=== PATIENT | male | born 1945 | race Caucasian/White ===

== ENCOUNTER 2017-08-29 14:04 | Emergency (ER) | payer MEDICARE, SELFPAY | END 2017-08-29 17:02 | disposition home or self-care (01) | PROVIDERS: Emergency Provider Internal Medicine; Visit Provider Internal Medicine | DX: I48.91 Unspecified atrial fibrillation (principal) | CPT/HCPCS: 71010; 71045; 80053; 83880; 84484; 85025; 85379; 93005; 93010; 99058; 99285 ==

== ENCOUNTER 2018-06-22 05:53 | Emergency (ER) | payer MEDICARE, SELFPAY ==
[2018-06-22 06:03] VITALS: BP 137/81; PULSE 101; RESP 16; TEMP 36.2; O2SAT 92; BMI 25.7
--- NOTE | 2018-06-22 06:22 | ED.MALEGU ---
HPI - Male Genitourinary <Lisa Jones DO - Last Filed: 06/22/18 21:24> General Chief complaint: Urogenital-Male Stated complaint: thinks uti, hurts to pee, chills Time Seen by Provider: 06/22/18 06:03 Source: patient, family and RN notes reviewed Mode of arrival: ambulatory Limitations: no limitations History of Present Illness HPI Narrative: patient is a 72-year-old male who presents with painful frequent urination. He says been off and on for about the last 1 month. However yesterday he started getting shakes and chills and having urinary urgency. He denies any blood in his urine. last evening he had severe pain in his left lower quadrant. It subsided in went away however this morning it came back and is more constant. He denies any flank pain no history kidney stones. He is on Eliquis for AFib. MD Complaint: dysuria Onset (ago): month(s) Duration: intermittent and progressively worsening Related Data Home Medications Medication Instructions Recorded Confirmed finasteride 5 mg PO QDAY #0 03/22/17 ranitidine HCl 150 mg PO BID #0 03/22/17 tamsulosin [Flomax] 0.4 mg PO QDAY #0 03/22/17 tiotropium bromide [Spiriva 2.5 mcg IH BID #0 03/22/17 Respimat] diltiazem HCl 180 mg PO QDAY #0 08/29/17 Previous Rx's Medication Instructions Recorded apixaban [Eliquis] 5 mg PO BID #60 tab 03/23/17 levalbuterol tartrate [Xopenex HFA] 2 puff INH Q4HP PRN #1 inh 03/23/17 diltiazem HCl 60 mg PO DAILY #20 cap 09/11/17 cephalexin [Keflex] 500 mg PO QID 10 Days #40 cap 06/22/18 Allergies Allergy/AdvReac Type Severity Reaction Status Date / Time No Known Allergies Allergy Verified 09/11/17 16:17 Review of Systems <Lisa Jones DO - Last Filed: 06/22/18 21:24> Review of Systems GENERAL: Denies chills, fatigue, malaise, fever, sweats, travel HEENT: Denies sinus pain, ear pain, sore throat, difficulty swallowing, neck pain RESPIRATORY: Denies dyspnea, cough, wheezing, hemoptysis, sputum. CARDIOVASCULAR: Denies chest pain, palpitations, orthopnea, edema GASTROINTESTINAL: Denies nausea, vomiting, abdominal pain, diarrhea, constipation, melena. : The HPI MUSCULOSKELETAL: Denies weakness, joint pain, or bony pain SKIN: No rash, no erythema, no pruritus NEUROLOGIC: Denies weakness, dizziness, headache, numbness, change in speech, confusion PSYCHIATRIC: No concerning psychosocial issues. 12 point review of systems is negative except for those stated above and HPI PFSH <Lisa Jones DO - Last Filed: 06/22/18 21:24> Medical History Atrial fibrillation (Acute) COPD (chronic obstructive pulmonary disease) (Acute) Social History Smoking Status: Never smoker Social History Smoking Status: Never smoker Exam <Lisa Jones DO - Last Filed: 06/22/18 21:24> Initial Vital Signs Initial Vital Signs: Vital Signs Temperature 97.1 F L 06/22/18 06:03 Pulse Rate 101 H 06/22/18 06:03 Respiratory Rate 16 06/22/18 06:03 Blood Pressure 137/81 06/22/18 06:03 Pulse Oximetry 92 06/22/18 06:03 GENERAL: alert male no acute distress HEENT: Head atraumatic,EOMI, pupils reactive, neck is supple CARDIOVASCULAR: Regular rate and rhythm without murmurs, rubs or gallops. RESPIRATORY: Breath sounds equal bilaterally, no wheezes rales or rhonchi. ABDOMEN: Soft, mild left lower quadrant pain no guarding no rebound : No CVA tenderness EXTREMITIES: Normal range of motion, no clubbing or edema. Neurovascularly intact NEUROLOGICAL: Alert and oriented x4. SKIN: Warm, dry, no laceration, no petechiae, no rashes or lesions. <Bert Willingham DO - Last Filed: 06/22/18 20:47> Initial Vital Signs Initial Vital Signs: Vital Signs Temperature 97.1 F L 06/22/18 06:03 Pulse Rate 101 H 06/22/18 06:03 Respiratory Rate 16 06/22/18 06:03 Blood Pressure 137/81 06/22/18 06:03 Pulse Oximetry 92 06/22/18 06:03 Course <Lisa Jones DO - Last Filed: 06/22/18 21:24> Orders Ordered: Discontinued Medications Acetaminophen (Tylenol) 975 mg PO NOW ONE Stop: 06/22/18 07:32 Last Admin: 06/22/18 07:31 Dose: 975 mg Sodium Chloride (Normal Saline 0.9%) 1,000 mls @ 1,000 mls/hr IV BOLUS ONE Stop: 06/22/18 07:19 Last Infusion: 06/22/18 07:32 Dose: 0 mls/hr Admin: 06/22/18 06:45 Dose: 1,000 mls/hr Vital Signs - 8 hr 06/22/18 06:03 Temperature 97.1 F L Pulse Rate 101 H Respiratory Rate 16 Blood Pressure 137/81 Pulse Oximetry 92 <Bert Willingham DO - Last Filed: 06/22/18 20:47> Orders Ordered: Discontinued Medications Acetaminophen (Tylenol) 975 mg PO NOW ONE Stop: 06/22/18 07:32 Last Admin: 06/22/18 07:31 Dose: 975 mg Sodium Chloride (Normal Saline 0.9%) 1,000 mls @ 1,000 mls/hr IV BOLUS ONE Stop: 06/22/18 07:19 Last Infusion: 06/22/18 07:32 Dose: 0 mls/hr Admin: 06/22/18 06:45 Dose: 1,000 mls/hr Reevaluation(s) Reevaluation #1: patient received in sign-out from Dr. Jones. I have independently examined and reviewed this patient. Urine is very convincing for infection, postvoid residual bladder scan notes 150 mL. Extensive discussion with the patient and family regarding need for treatment with antibiotics and close follow-up with primary care provider which will likely lead to urologic consult in the near future Vital Signs - 8 hr 06/22/18 06:03 Temperature 97.1 F L Pulse Rate 101 H Respiratory Rate 16 Blood Pressure 137/81 Pulse Oximetry 92 MDM - Male Genitourinary <Lisa Jones DO - Last Filed: 06/22/18 21:24> Lab Data Attestation: I reviewed the patient's lab results. Result diagrams: 06/22/18 06:28 06/22/18 06:28 Lab Results 06/22/18 06/22/18 06/22/18 Range/Units 06:28 06:28 07:25 WBC 10.1 (4.5-11.0) X10^3/uL RBC 4.65 (4.5-5.9) X10^6/uL Hgb 14.5 (13.5-17.5) g/dL Hct 43.1 (41-53) % MCV 92.8 (80-100) fL MCH 31.1 (26-34) PG MCHC 33.6 (30-36) % RDW 14.1 (11.6-14.8) % Plt Count 250 (150-400) X10^3/uL Neut % (Auto) 86.5 H (50-75) % Lymph % (Auto) 4.3 L (25-40) % [place] % (Auto) 6.3 (3-14) % Eos % (Auto) 2.4 (2-4) % Baso % (Auto) 0.5 (0-2) % Neut # (Auto) 8800 H (8161-3359) /uL Lymph # (Auto) 400 L (5245-6283) /uL [place] # (Auto) 600 (0-900) /uL Eos # (Auto) 200 (0-450) /uL Baso # (Auto) 100 (0-100) /uL Sodium 137 (137-145) mmol/L Potassium 4.3 (3.4-5.1) mmol/L Chloride 105 (98-107) mmol/L Carbon Dioxide 23 (22-32) mmol/L BUN 15 (9-20) mg/dL Creatinine 0.80 (0.66-1.25) mg/dL Estimated GFR > 60.0 (>60) mL/min BUN/Creatinine Ratio 18.8 (6-22) Glucose 100 (80-110) mg/dL Calcium 9.1 (8.4-10.2) mg/dL Urine RBC >100/hpf (0-5/HPF) Urine WBC >100/hpf H (0-5/HPF) Urine Bacteria Many (>30) H (None) Ur Culture Indicated? 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 Is no nephrolithiasis or hydronephrosis. Mild rufina vesicular inflammation. Recommend correlation with his urinalysis for cystitis. Moderate stool in colon with left-sided diverticulosis. MDM Narrative Medical decision making narrative: Patient signed out to Dr. Willingham. Awaiting urinalysis anticipate UTI. His does not appear septic anticipate discharge <Bert Willingham DO - Last Filed: 06/22/18 20:47> Lab Data Lab Results 06/22/18 06/22/18 06/22/18 Range/Units 06:28 06:28 07:25 WBC 10.1 (4.5-11.0) X10^3/uL RBC 4.65 (4.5-5.9) X10^6/uL Hgb 14.5 (13.5-17.5) g/dL Hct 43.1 (41-53) % MCV 92.8 (80-100) fL MCH 31.1 (26-34) PG MCHC 33.6 (30-36) % RDW 14.1 (11.6-14.8) % Plt Count 250 (150-400) X10^3/uL Neut % (Auto) 86.5 H (50-75) % Lymph % (Auto) 4.3 L (25-40) % [place] % (Auto) 6.3 (3-14) % Eos % (Auto) 2.4 (2-4) % Baso % (Auto) 0.5 (0-2) % Neut # (Auto) 8800 H (7408-8826) /uL Lymph # (Auto) 400 L (9330-0351) /uL [place] # (Auto) 600 (0-900) /uL Eos # (Auto) 200 (0-450) /uL Baso # (Auto) 100 (0-100) /uL Sodium 137 (137-145) mmol/L Potassium 4.3 (3.4-5.1) mmol/L Chloride 105 (98-107) mmol/L Carbon Dioxide 23 (22-32) mmol/L BUN 15 (9-20) mg/dL Creatinine 0.80 (0.66-1.25) mg/dL Estimated GFR > 60.0 (>60) mL/min BUN/Creatinine Ratio 18.8 (6-22) Glucose 100 (80-110) mg/dL Calcium 9.1 (8.4-10.2) mg/dL Urine RBC >100/hpf (0-5/HPF) Urine WBC >100/hpf H (0-5/HPF) Urine Bacteria Many (>30) H (None) Ur Culture Indicated? Specimen cultured Urine Dip Bedside Urine Glucose Negative Bedside Urine Bilirubin - Negative Bedside Urine Ketone - Negative Urine Specific [place] 1.020 Bedside Urine Occult Blood +++ Bedside Urine pH 6.0 Bedside Urine Protein + 30 Bedside Urine Urobilinogen - Negative Bedside Urine Nitrite - Negative Bedside Urine Leukocytes +++ 500 Esterase Discharge Plan Departure Patient Disposition: Home Clinical Impression: Acute UTI Discharge Date/Time: 06/22/18 08:45 Interventions: ED Discharge Assessment Last Done: 06/22/18 08:44 Instructions: DI for Kidney Infection Activity Restrictions/Additional Instructions: *You have been diagnosed with [ acute urinary tract infection with possible early pyelonephritis ] *What to do: *Take medications as directed: Your prescription has been electronically transmitted to the [facility] at your request *Follow up with your primary care provider in 2-3 days, call for an appointment. Let them know you were seen in the Emergency Department and that we ask that you be seen in follow up *Return to ER if you should have any new, worsening or concerning symptoms, such as [fever over 101 F, worsening pain, inability to tolerate eating or drinking, other bothersome symptoms ] Prescriptions: New cephalexin [Keflex] 500 mg capsule 500 mg PO QID 10 Days Qty: 40 RF: 0 No Action finasteride 5 MG tablet 5 mg PO QDAY Qty: 0 RF: 0 tamsulosin [Flomax] 0.4 MG capsule,extended release 24hr 0.4 mg PO QDAY Qty: 0 RF: 0 ranitidine HCl 150 MG tablet 150 mg PO BID Qty: 0 RF: 0 tiotropium bromide [Spiriva Respimat] 2.5 MCG/ACTUATION mist 2.5 mcg IH BID Qty: 0 RF: 0 levalbuterol tartrate [Xopenex HFA] 45 MCG/INH HFA aerosol inhaler 2 puff INH Q4HP PRNQty: 1 RF: 0 apixaban [Eliquis] 5 MG tablet 5 mg PO BID Qty: 60 RF: 3 diltiazem HCl 180 MG capsule,extended release 24hr 180 mg PO QDAY Qty: 0 RF: 0 diltiazem HCl 120 mg capsule,extended release 24hr 60 mg PO DAILY Qty: 20 RF: 0 Referrals: Mike Child MD [Non-Staff] - Sade Blanc MD [Physician] -
--- NOTE | 2018-06-22 06:25 | ED_ITS ---
HPI - Male Genitourinary <Lisa Jones DO - Last Filed: 06/22/18 21:24> General Chief complaint: Urogenital-Male Stated complaint: thinks uti, hurts to pee, chills Time Seen by Provider: 06/22/18 06:03 Source: patient, family and RN notes reviewed Mode of arrival: ambulatory Limitations: no limitations History of Present Illness HPI Narrative: patient is a 72-year-old male who presents with painful frequent urination. He says been off and on for about the last 1 month. However yes terday he started getting shakes and chills and having urinary urgency. He denies any blood in his urine. last evening he had severe pain in his left lower quadrant. It subsided in went away however this morning it came back and is more constant. He denies any flank pain no history kidney stones. He is on Eliquis for AFib. MD Complaint: dysuria Onset (ago): month(s) Duration: intermittent and progressively worsening Related Data Home Medications Medication Instructions Recorded Confirmed finasteride 5 mg PO QDAY #0 03/22/17 ranitidine HCl 150 mg PO BID #0 03/22/17 tamsulosin [Flomax] 0.4 mg PO QDAY #0 03/22/17 tiotropium bromide [Spiriva 2.5 mcg IH BID #0 03/22/17 Respimat] diltiazem HCl 180 mg PO QDAY #0 08/29/17 Previous Rx's Medication Instructions Recorded apixaban [Eliquis] 5 mg PO BID #60 tab 03/23/17 levalbuterol tartrate [Xopenex HFA] 2 puff INH Q4HP PRN #1 inh 03/23/17 diltiazem HCl 60 mg PO DAILY #20 cap 09/11/17 cephalexin [Keflex] 500 mg PO QID 10 Days #40 cap 06/22/18 Allergies Allergy/AdvReac Type Severity Reaction Status Date / Time No Known Allergies Allergy Verified 09/11/17 16:17 Review of Systems <Lisa Jones DO - Last Filed: 06/22/18 21:24> Review of Systems GENERAL: Denies chills, fatigue, malaise, fever, sweats, travel HEENT: Denies sinus pain, ear pain, sore throat, difficulty swallowing, neck pain RESPIRATORY: Denies dyspnea, cough, wheezing, hemoptysis, sputum. CARDIOVASCULAR: Denies chest pain, palpitations, orthopnea, edema GASTROINTESTINAL: Denies nausea, vomiting, abdominal pain, diarrhea, constipation, melena. : The HPI MUSCULOSKELETAL: Denies weakness, joint pain, or bony pain SKIN: No rash, no erythema, no pruritus NEUROLOGIC: Denies weakness, dizziness, headache, numbness, change in speech, c onfusion PSYCHIATRIC: No concerning psychosocial issues. 12 point review of systems is negative except for those stated above and HPI PFSH <Lisa Jones DO - Last Filed: 06/22/18 21:24> Medical History Atrial fibrillation (Acute) COPD (chronic obstructive pulmonary disease) (Acute) Social History Smoking Status: Never smoker Social History Smoking Status: Never smoker Exam <Lisa Jones DO - Last Filed: 06/22/18 21:24> Initial Vital Signs Initial Vital Signs: Vital Signs Temperature 97.1 F L 06/22/18 06:03 Pulse Rate 101 H 06/22/18 06:03 Respiratory Rate 16 06/22/18 06:03 Blood Pressure 137/81 06/22/18 06:03 Pulse Oximetry 92 06/22/18 06:03 GENERAL: alert male no acute distress HEENT: Head atraumatic,EOMI, pupils reactive, neck is supple CARDIOVASCULAR: Regular rate and rhythm without murmurs, rubs or gallops. RESPIRATORY: Breath sounds equal bilaterally, no wheezes rales or rhonchi. ABDOMEN: Soft, mild left lower quadrant pain no guarding no rebound : No CVA tenderness EXTREMITIES: Normal range of motion, no clubbing or edema. Neurovascularly intact NEUROLOGICAL: Alert and oriented x4. SKIN: Warm, dry, no laceration, no petechiae, no rashes or lesions. <Bert Willingham DO - Last Filed: 06/22/18 20:47> Initial Vital Signs Initial Vital Signs: Vital Signs Temperature 97.1 F L 06/22/18 06:03 Pulse Rate 101 H 06/22/18 06:03 Respiratory Rate 16 06/22/18 06:03 Blood Pressure 137/81 06/22/18 06:03 Pulse Oximetry 92 06/22/18 06:03 Course <Lisa Jones DO - Last Filed: 06/22/18 21:24> Orders Ordered: Discontinued Medications Acetaminophen (Tylenol) 975 mg PO NOW ONE Stop: 06/22/18 07:32 Last Admin: 06/22/18 07:31 Dose: 975 mg Sodium Chloride (Normal Saline 0.9%) 1,000 mls @ 1,000 mls/hr IV BOLUS ONE Stop: 06/22/18 07:19 Last Infusion: 06/22/18 07:32 Dose: 0 mls/hr Admin: 06/22/18 06:45 Dose: 1,000 mls/hr Vital Signs - 8 hr 06/22/18 06:03 Temperature 97.1 F L Pulse Rate 101 H Respiratory Rate 16 Blood Pressure 137/81 Pulse Oximetry 92 <Bert Willingham, - Last Filed: 06/22/18 20:47> Orders Ordered: Discontinued Medications Acetaminophen (Tylenol) 975 mg PO NOW ONE Stop: 06/22/18 07:32 Last Admin: 06/22/18 07:31 Dose: 975 mg Sodium Chloride (Normal Saline 0.9%) 1,000 mls @ 1,000 mls/hr IV BOLUS ONE Stop: 06/22/18 07:19 Last Infusion: 06/22/18 07:32 Dose: 0 mls/hr Admin: 06/22/18 06:45 Dose: 1,000 mls/hr Reevaluation(s) Reevaluation #1: patient received in sign-out from Dr. Jones. I have independently examined and reviewed this patient. Urine is very convincing for infection, postvoid residual bladder scan notes 150 mL. Extensive discussion with the patient and family regarding need for treatment with antibiotics and close follow-up with primary care provider which will likely lead to urologic consult in the near future Vital Signs - 8 hr 06/22/18 06:03 Temperature 97.1 F L Pulse Rate 101 H Respiratory Rate 16 Blood Pressure 137/81 Pulse Oximetry 92 MDM - Male Genitourinary <Lisa Jones DO - Last Filed: 06/22/18 21:24> Lab Data Attestation: I reviewed the patient's lab results. Result diagrams: 06/22/18 06:28 06/22/18 06:28 Lab Results 06/22/18 06/22/18 06/22/18 Range/Units 06:28 06:28 07:25 WBC 10.1 (4.5-11.0) X10^3/uL RBC 4.65 (4.5-5.9) X10^6/uL Hgb 14.5 (13.5-17.5) g/dL Hct 43.1 (41-53) % MCV 92.8 (80-100) fL MCH 31.1 (26-34) PG MCHC 33.6 (30-36) % RDW 14.1 (11.6-14.8) % Plt Count 250 (150-400) X10^3/uL Neut % (Auto) 86.5 H (50-75) % Lymph % (Auto) 4.3 L (25-40) % [place] % (Auto) 6.3 (3-14) % Eos % (Auto) 2.4 (2-4) % Baso % (Auto) 0.5 (0-2) % Neut # (Auto) 8800 H (0810-7292) /uL Lymph # (Auto) 400 L (6291-9504) /uL [place] # (Auto) 600 (0-900) /uL Eos # (Auto) 200 (0-450) /uL Baso # (Auto) 100 (0-100) /uL Sodium 137 (137-145) mmol/L Potassium 4.3 (3.4-5.1) mmol/L Chloride 105 (98-107) mmol/L Carbon Dioxide 23 (22-32) mmol/L BUN 15 (9-20) mg/dL Creatinine 0.80 (0.66-1.25) mg/dL Estimated GFR > 60.0 (>60) mL/min BUN/Creatinine Ratio 18.8 (6-22) Glucose 100 (80-110) mg/dL Calcium 9.1 (8.4-10.2) mg/dL Urine RBC >100/hpf (0-5/HPF) Urine WBC >100/hpf H (0-5/HPF) Urine Bacteria Many (>30) H (None) Ur Culture Indicated? 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 Is no nephrolithiasis or hydronephrosis. Mild rufina vesicular inflammation. Recommend correlation with his urinalysis for cystitis. Moderate stool in colon with left-sided diverticulosis. MDM Narrative Medical decision making narrative: Patient signed out to Dr. Willingham. Awaiting urinalysis anticipate UTI. His does not appear septic anticipate discharge <Bert Willingham DO - Last Filed: 06/22/18 20:47> Lab Data Lab Results 06/22/18 06/22/18 06/22/18 Range/Units 06:28 06:28 07:25 WBC 10.1 (4.5-11.0) X10^3/uL RBC 4.65 (4.5-5.9) X10^6/uL Hgb 14.5 (13.5-17.5) g/dL Hct 43.1 (41-53) % MCV 92.8 (80-100) fL MCH 31.1 (26-34) PG MCHC 33.6 (30-36) % RDW 14.1 (11.6-14.8) % Plt Count 250 (150-400) X10^3/uL Neut % (Auto) 86.5 H (50-75) % Lymph % (Auto) 4.3 L (25-40) % [place] % (Auto) 6.3 (3-14) % Eos % (Auto) 2.4 (2-4) % Baso % (Auto) 0.5 (0-2) % Neut # (Auto) 8800 H (8511-0494) /uL Lymph # (Auto) 400 L (3751-7918) /uL [place] # (Auto) 600 (0-900) /uL Eos # (Auto) 200 (0-450) /uL Baso # (Auto) 100 (0-100) /uL Sodium 137 (137-145) mmol/L Potassium 4.3 (3.4-5.1) mmol/L Chloride 105 (98-107) mmol/L Carbon Dioxide 23 (22-32) mmol/L BUN 15 (9-20) mg/dL Creatinine 0.80 (0.66-1.25) mg/dL Estimated GFR > 60.0 (>60) mL/min BUN/Creatinine Ratio 18.8 (6-22) Glucose 100 (80-110) mg/dL Calcium 9.1 (8.4-10.2) mg/dL Urine RBC >100/hpf (0-5/HPF) Urine WBC >100/hpf H (0-5/HPF) Urine Bacteria Many (>30) H (None) Ur Culture Indicated? Specimen cultured Urine Dip Bedside Urine Glucose Negative Bedside Urine Bilirubin - Negative Bedside Urine Ketone - Negative Urine Specific [place] 1.020 Bedside Urine Occult Blood +++ Bedside Urine pH 6.0 Bedside Urine Protein + 30 Bedside Urine Urobilinogen - Negative Bedside Urine Nitrite - Negative Bedside Urine Leukocytes +++ 500 Esterase Discharge Plan Departure Patient Disposition: Home Clinical Impression: Acute UTI Discharge Date/Time: 06/22/18 08:45 Interventions: ED Discharge Assessment Last Done: 06/22/18 08:44 Instructions: DI for Kidney Infection Activity Restrictions/Additional Instructions: *You have been diagnosed with [ acute urinary tract infection with possible early pyelonephritis ] *What to do: *Take medications as directed: Your prescription has been electronically transmitted to the [facility] at your request *Follow up with your primary care provider in 2-3 days, call for an appointment. Let them know you were seen in the Emergency Department and that we ask that you be seen in follow up *Return to ER if you should have any new, worsening or concerning symptoms, such as [fever over 101 F, worsening pain, inability to tolerate eating or drinking, other bothersome symptoms ] Prescriptions: New cephalexin [Keflex] 500 mg capsule 500 mg PO QID 10 Days Qty: 40 RF: 0 No Action finasteride 5 MG tablet 5 mg PO QDAY Qty: 0 RF: 0 tamsulosin [Flomax] 0.4 MG capsule,extended release 24hr 0.4 mg PO QDAY Qty: 0 RF: 0 ranitidine HCl 150 MG tablet 150 mg PO BID Qty: 0 RF: 0 tiotropium bromide [Spiriva Respimat] 2.5 MCG/ACTUATION mist 2.5 mcg IH BID Qty: 0 RF: 0 levalbuterol tartrate [Xopenex HFA] 45 MCG/INH HFA aerosol inhaler 2 puff INH Q4HP PRNQty: 1 RF: 0 apixaban [Eliquis] 5 MG tablet 5 mg PO BID Qty: 60 RF: 3 diltiazem HCl 180 MG capsule,extended release 24hr 180 mg PO QDAY Qty: 0 RF: 0 diltiazem HCl 120 mg capsule,extended release 24hr 60 mg PO DAILY Qty: 20 RF: 0 Referrals: Mike Child MD [Non-Staff] - Sade Blanc MD [Physician] -
[2018-06-22 06:38] LABS: Add Manual Diff / Slide Review NO; Basophils Absolute Auto 100 /uL (0-100); Basophils Percent Auto 0.5 % (0-2); Eosinophils Absolute Auto 200 /uL (0-450); Eosinophils Percent Auto 2.4 % (2-4); Hematocrit 43.1 % (41-53); Hemoglobin 14.5 g/dL (13.5-17.5); Lymphocytes Absolute Auto 400 /uL (1100-4500); Lymphocytes Percent Auto 4.3 % (25-40); Mean Corpuscular HGB Conc 33.6 % (30-36); Mean Corpuscular Hemoglobin 31.1 PG (26-34); Mean Corpuscular Volume 92.8 fL (80-100); Monocytes Absolute Auto 600 /uL (0-900); Monocytes Percent Auto 6.3 % (3-14); Neutrophils Absolute Auto 8800 /uL (1500-7000); Neutrophils Percent Auto 86.5 % (50-75); Platelet Count 250 X10^3/uL (150-400); Red Blood Cell Count 4.65 X10^6/uL (4.5-5.9); Red Cell Distribution Width 14.1 % (11.6-14.8); White Blood Cell Count 10.1 X10^3/uL (4.5-11.0)
[2018-06-22] MEDS: SODIUM CHLORIDE 0.9% 1,000 ML 1000 ML IV (06:45)
[2018-06-22 06:47] LABS: BUN Creatinine Ratio 18.8 (6-22); Blood Urea Nitrogen 15 mg/dL (9-20); Calcium 9.1 mg/dL (8.4-10.2); Carbon Dioxide 23 mmol/L (22-32); Chloride 105 mmol/L (98-107); Estimated Glomerular Filt Rate > 60.0 mL/min (>60); Glucose 100 mg/dL (80-110); HEMOLYSIS < 15 (0-50); Potassium 4.3 mmol/L (3.4-5.1); Sodium 137 mmol/L (137-145)
--- NOTE | 2018-06-22 06:47 | DI.CT.S_ITS ---
PROCEDURE: CT KIDNEY URETER BLADDER (KUB) INDICATIONS: left flank pain TECHNIQUE: Noncontrast 5 mm thick sections acquired from the diaphragms to the symphysis. 5 mm thick coronal and sagittal reformats were then performed. For radiation dose reduction, the following was used: automated exposure control, adjustment of mA and/or kV according to patient size. COMPARISON: None. FINDINGS: Image quality: Excellent. Lung bases: Lung bases are clear. Heart size is normal. Urinary system: Both kidneys are normal in size. No kidney stones. No hydronephrosis or perinephric fat stranding. Both ureters appear non-dilated throughout their expected courses. There is mild diffuse urinary bladder wall thickening and mild pericystic fat stranding. No calcified bladder stones. Mildly enlarged prostate gland is seen with mass effect of floor of urinary bladder. Other solid organs: Liver is normal in size. Gallbladder is within normal limits. Pancreas is normal in contours. Spleen is normal in size. No adrenal nodules. Peritoneum and bowel: Unenhanced bowel loops demonstrate normal wall thickness and caliber. No free fluid or air. Sigmoid diverticulosis is seen, and no CT evidence of acute diverticulitis. There is a small hiatal hernia. Nodes and vessels: No retroperitoneal or mesenteric adenopathy by size criteria. Aorta and inferior vena cava are normal in caliber. Abdominal wall: No ventral hernias. Pelvis: No free pelvic fluid. No inguinal hernias or adenopathy. Bones: No suspicious bony lesions. No vertebral body compression fractures. Bilateral pars defects at L5 level is helically one anterolisthesis of L5 on S1. Degenerative disc disease in lower lumbar spine is seen. IMPRESSION: 1. Finding may represent cystitis. No definite discrete bladder wall mass is seen. 2. No nephrolithiasis or hydronephrosis. 3. Left colon diverticulosis with no CT evidence of acute diverticulitis. No bowel structure. No free fluid or free air. No significant discrepancies. Dictated by: Amanuel Ferreira M.D. on 06/22/2018 at 8:49 Approved by: Amanuel Ferreira M.D. on 06/22/2018 at 9:05
[2018-06-22] MEDS: ACETAMINOPHEN 325 MG TABLET 975 MG PO (07:31)
[2018-06-22 07:36] LABS: Bacteria Urine Many (>30); Culture Indicated Urine Specimen Cultured; RBC Urine >100/HPF (0-5/HPF); WBC Urine >100/HPF (0-5/HPF)
[2018-06-22 08:44] VITALS: BP 114/67; PULSE 80; RESP 16; O2SAT 94
== END 2018-06-22 08:45 | disposition home or self-care (01) ==
PROVIDERS: Emergency Medicine; Emergency Provider Emergency Medicine
DX: N39.0 Urinary tract infection, site not specified (principal)
CPT/HCPCS: 36591; 74176; 80048; 81003; 81015; 85025; 87086; 96360; 99283; 99284

== ENCOUNTER → 2018-09-20 07:47 | Outpatient (CLI) | payer OTHER, MEDICARE, SELFPAY ==
[2018-09-20 08:35] LABS: BUN Creatinine Ratio 15.6 (6-22); Blood Urea Nitrogen 14 mg/dL (9-20); Calcium 9.1 mg/dL (8.4-10.2); Carbon Dioxide 30 mmol/L (22-32); Chloride 104 mmol/L (98-107); Estimated Glomerular Filt Rate > 60.0 mL/min (>60); Glucose 96 mg/dL (80-110); HEMOLYSIS < 15 (0-50); Potassium 4.4 mmol/L (3.4-5.1); Sodium 139 mmol/L (137-145)
== END ==
PROVIDERS: Visit Provider Internal Medicine Cardiovascular Disease
DX: I48.0 Paroxysmal atrial fibrillation (principal); E78.5 Hyperlipidemia, unspecified
CPT/HCPCS: 36415; 80048

== ENCOUNTER → 2018-09-25 06:55 | Outpatient (CLI) | payer OTHER, MEDICARE, SELFPAY ==
[2018-09-25 09:20] LABS: Add Manual Diff / Slide Review NO; Basophils Absolute Auto 100 /uL (0-100); Basophils Percent Auto 0.8 % (0-2); Eosinophils Absolute Auto 300 /uL (0-450); Eosinophils Percent Auto 4.5 % (2-4); Hematocrit 42.1 % (41-53); Hemoglobin 14.3 g/dL (13.5-17.5); Lymphocytes Absolute Auto 900 /uL (1100-4500); Lymphocytes Percent Auto 14.5 % (25-40); Mean Corpuscular HGB Conc 33.9 % (30-36); Mean Corpuscular Hemoglobin 31.5 PG (26-34); Mean Corpuscular Volume 92.9 fL (80-100); Monocytes Absolute Auto 500 /uL (0-900); Monocytes Percent Auto 8.3 % (3-14); Neutrophils Absolute Auto 4700 /uL (1500-7000); Neutrophils Percent Auto 71.9 % (50-75); Platelet Count 247 X10^3/uL (150-400); Red Blood Cell Count 4.53 X10^6/uL (4.5-5.9); Red Cell Distribution Width 14.4 % (11.6-14.8); White Blood Cell Count 6.5 X10^3/uL (4.5-11.0)
[2018-09-25 09:28] LABS: Cholesterol 141 mg/dL (140-199); HDL Cholesterol 56 mg/dL (40-60); LDL Cholesterol Calculated 71 mg/dL (<100); Triglycerides 68 mg/dL (35-150)
== END ==
PROVIDERS: Visit Provider Internal Medicine Cardiovascular Disease
DX: I48.0 Paroxysmal atrial fibrillation (principal); E78.5 Hyperlipidemia, unspecified
CPT/HCPCS: 36415; 80061; 85025

== ENCOUNTER → 2020-05-30 12:03 | Outpatient (CLI) | payer MEDICARE, SELFPAY ==
[2020-05-30] MEDS: COVID-19 VACC #1, MRNA(MOD) 100 MCG/0.5 ML VIAL IM (12:10)
== END ==
PROVIDERS: Visit Provider Internal Medicine
DX: Z23 Encounter for immunization (principal)
CPT/HCPCS: 0011A; 91301

== ENCOUNTER → 2020-06-25 10:33 | Outpatient (CLI) | payer OTHER, SELFPAY ==
[2020-06-25 11:53] LABS: Add Manual Diff / Slide Review NO; Basophils Absolute Auto 0 /uL (0-100); Basophils Percent Auto 0.7 % (0-2); Eosinophils Absolute Auto 300 /uL (0-450); Eosinophils Percent Auto 4.4 % (2-4); Lymphocytes Absolute Auto 1000 /uL (1100-4500); Lymphocytes Percent Auto 14.6 % (25-40); Mean Corpuscular HGB Conc 34.1 % (30-36); Mean Corpuscular Hemoglobin 32.3 PG (26-34); Mean Corpuscular Volume 94.7 fL (80-100); Monocytes Absolute Auto 700 /uL (0-900); Monocytes Percent Auto 9.4 % (3-14); Neutrophils Absolute Auto 5100 /uL (1500-7000); Neutrophils Percent Auto 70.9 % (50-75); Platelet Count 223 X10^3/uL (150-400); Red Blood Cell Count 4.32 X10^6/uL (4.5-5.9); Red Cell Distribution Width 13.8 % (11.6-14.8); White Blood Cell Count 7.1 X10^3/uL (4.5-11.0)
[2020-06-25 11:59] LABS: Blood Urea Nitrogen 18 mg/dL (9-20); Calcium 9.2 mg/dL (8.4-10.2); Carbon Dioxide 30 mmol/L (22-32); Chloride 102 mmol/L (98-107); Cholesterol 145 mg/dL (140-199); Estimated Glomerular Filt Rate > 60.0 mL/min (>60); Glucose 102 mg/dL (80-110); HDL Cholesterol 52 mg/dL (40-60); HEMOLYSIS < 15 (0-50); LDL Cholesterol Calculated 57 mg/dL (<100); Potassium 4.5 mmol/L (3.4-5.1); Sodium 134 mmol/L (137-145); Triglycerides 181 mg/dL (35-150)
== END ==
PROVIDERS: PCP Internal Medicine; Referring Provider Internal Medicine Cardiovascular Disease; Visit Provider Internal Medicine Cardiovascular Disease
DX: I48.0 Paroxysmal atrial fibrillation (principal); E78.5 Hyperlipidemia, unspecified
CPT/HCPCS: 36415; 80048; 80061; 85025

== ENCOUNTER → 2020-06-27 12:38 | Outpatient (CLI) | payer MEDICARE, SELFPAY ==
[2020-06-27] MEDS: COVID-19 VACC #2, MRNA(MOD) 100 MCG/0.5 ML VIAL IM (12:51)
== END ==
PROVIDERS: PCP Internal Medicine; Visit Provider Internal Medicine
DX: Z23 Encounter for immunization (principal)
CPT/HCPCS: 0012A; 91301

== ENCOUNTER 2021-04-05 11:23 | Emergency (ER) | payer OTHER, MEDICARE, SELFPAY ==
[2021-04-05 11:32] VITALS: BP 146/73; PULSE 65; RESP 18; TEMP 36.9; O2SAT 96; BMI 26.3
--- NOTE | 2021-04-05 11:39 | DI.RAD.S_ITS ---
PROCEDURE: XR CHEST 1V INDICATIONS: chest pain TECHNIQUE: One view of the chest was acquired. COMPARISON: [facility], CHEST 1 VIEW, 08/29/2017, 14:36. [facility], , XR CHEST 1V, 09/11/2017, 16:27. FINDINGS: Surgical changes and devices: None. Lungs and pleura: Lungs are clear. No pleural effusions or pneumothorax. Mediastinum: Mediastinal contours appear normal. Heart size is normal. Bones and chest wall: No suspicious bony lesions. Overlying soft tissues appear unremarkable. IMPRESSION: No acute cardiopulmonary process is seen. Dictated by: Rohan Mak M.D. on 04/05/2021 at 11:07 Approved by: Rohan Mak M.D. on 04/05/2021 at 11:08
--- NOTE | 2021-04-05 12:00 | DI.CT.S_ITS ---
PROCEDURE: CT HEAD/BRAIN WO CON INDICATIONS: syncope TECHNIQUE: Noncontrast 4.5 mm thick angled axial sections acquired from the foramen magnum to the vertex, with coronal and sagittal reformats. For radiation dose reduction, the following was used: automated exposure control, adjustment of mA and/or kV according to patient size. COMPARISON: None. FINDINGS: Image quality: Excellent. CSF spaces: Basal cisterns are patent. No extra-axial fluid collections. The ventricles are symmetric in size and shape. Brain: No intracranial bleeds or masses. There is cerebral volume loss for age, with resultant ventricular and sulcal prominence. There are periventricular and deep white matter chronic small vessel ischemic changes. There is intracranial internal carotid artery atherosclerosis. Skull and face: Calvarium and visualized facial bones appear intact, without suspicious lesions. Sinuses: Visualized sinuses and mastoids are clear. IMPRESSION: No acute intracranial process. Dictated by: Félix aMrio M.D. on 04/05/2021 at 12:47 Approved by: Félix Mario M.D. on 04/05/2021 at 12:48
--- NOTE | 2021-04-05 12:09 | ED.NEUROSD ---
HPI - Neuro Symptoms/Deficit General Chief Complaint: Neuro Symptoms/Deficit Stated Complaint: possible mini stroke tuesday evening Time Seen by Provider: 04/05/21 11:59 Source: patient Mode of arrival: Wheelchair Limitations: no limitations History of Present Illness HPI Narrative: This is a 75-year-old male who comes to the emergency department after having an episode on April 03 in the evening. Patient was at home he had put on his pajamas went to sit down in a chair and possibly passed out. His was with she states that he was snoring almost immediately and when she looked over he was sitting in the chair with his head back story for about a minute and then seemed to regain consciousness. She noted that it lasted about a minute not exactly sure how long. And that patient was asking where he was immediately afterwards but otherwise had normal faculties. He did not have any facial droop or other deficits noted by herself or family which includes an COMPLIANCE AUDITOR who came over to evaluate him. Since then he has just felt a little bit under the weather. He had a headache at that time which has improved but is still present and now mostly on the temporal area. He has not had any difficulty with ambulation or speech. No chest pain he has chronic shortness of breath which is not worsened and is normally on home O2 at 2 L nasal cannula. No nausea, no vomiting, no issues with bowel movements, no bright red blood or melena no new swelling extremities. He has felt a little lightheaded off and on for several weeks but had not had any other syncopal episodes or near syncopal episodes. He denies any vertigo type symptoms. He is on apixaban for atrial fibrillation he was diagnosed with cardiomyopathy last May after stress test and echo and was started on metoprolol. He has not had any cardiac interventions otherwise no stents, no CABG are no further workup since. Between the age of 3 and 4 he had 2 eye surgeries, appendectomy and tonsillectomy. He quit smoking in 2003, rare alcohol and no illicit. [facility] His taker out is Dr. Amos. JORGE. On Anticoagulants: Yes (eliquis) Related Data Home Medications Medication Instructions Recorded Confirmed finasteride 5 mg tablet 5 mg PO QDAY #0 03/22/17 ranitidine HCl 150 mg tablet 150 mg PO BID #0 03/22/17 tamsulosin 0.4 mg capsule (Flomax) 0.4 mg PO QDAY #0 03/22/17 tiotropium bromide 2.5 2.5 mcg IH BID #0 03/22/17 mcg/actuation mist for inhalation (Spiriva Respimat) diltiazem HCl 180 mg 180 mg PO QDAY #0 08/29/17 capsule,extended release 24 hr Previous Rx's Medication Instructions Recorded apixaban 5 mg tablet (Eliquis) 5 mg PO BID #60 tab 03/23/17 levalbuterol tartrate 45 2 puff INH Q4HP PRN #1 inh 03/23/17 mcg/actuation aerosol inhaler (Xopenex HFA) diltiazem HCl 120 mg 60 mg PO DAILY #20 cap 09/11/17 capsule,extended release 24 hr Allergies Allergy/AdvReac Type Severity Reaction Status Date / Time No Known Allergies Allergy Verified 09/11/17 16:17 Review of Systems Review of Systems ROS Unobtainable: All systems reviewed & are unremarkable except as noted in HPI and below Hematologic/Lymphatic On Anticoagulants: Yes (eliquis) Patient History Medical History Atrial fibrillation COPD (chronic obstructive pulmonary disease) Social History Smoking Status: Former smoker Smoking Status: Former smoker alcohol intake frequency: holidays/special occasions only Substance Use Type: does not use Exam Narrative Exam Narrative: GEN: well nourished, well appearing male, alert and oriented x 3, patient appears to be in mild distress. HEENT: Atraumatic, pupils are equal round reactive to light, extraocular movements are intact, nares are clear, no facial droop. HEART: Regular rate and rhythm without murmur, clicks, rubs. Pulses are equal in upper and lower extremities LUNGS:Lungs clear to auscultation, no wheezes, rales, crackles, chest moves symmetrically ABD:bowel sounds normal, soft, non-tender, no guarding, rebound, rigidity, no masses noted, no hepatosplenomegaly :No CVA tenderness MSCL: Non-tender, no muscle atrophy, muscles strength 5/5 upper and lower extremities, full range of motion, normal gait NEURO:CN 2-12 intact, sensation normal. finger nose finger test normal, heel gutierrez test normal, normal speech. SKIN: No rash, erythema or other skin changes noted. Initial Vital Signs Initial Vital Signs: Vital Signs Temperature 98.4 F 04/05/21 11:32 Pulse Rate 65 04/05/21 11:32 Respiratory Rate 18 04/05/21 11:32 Blood Pressure 146/73 H 04/05/21 11:32 Pulse Oximetry 96 04/05/21 11:32 Scores NIH Stroke Scale Level of Conciousness: Alert, keenly responsive Ask month/age: Answers both questions correctly. Open/close eyes, close hand: Performs both tasks correctly Best gaze horizontal: Normal Visual perez: No visual loss Facial palsy: Normal symetrical movement Left arm drift: No drift for full 10 sec Right arm drift: No drift for full 10 sec Left leg drift: No drift for full 5 sec Right leg drift: No drift for full 5 sec Limb ataxia: Absent Sensory on face/arms/legs: Normal, no sensory loss Best language: No aphasia, normal Dysarthria: Normal Extinction or inattention: No abnormality Total NIH Stroke scale score: 0 Course Orders Ordered: ED Orders 04/05/21 11:39 XR chest 1V Stat 04/05/21 11:48 EKG-12 Lead Stat 04/05/21 11:50 BNP [NT-proBNP (BNP-Adult 18+)] Stat Complete Blood Count AUTO DIFF Stat Comprehensive Metabolic Panel Stat D Dimer Stat Lipase Stat Troponin & CK Cardiac Panel Stat 04/05/21 12:00 CT head/brain wo con Stat Vital Signs Vital signs: Vital Signs - 8 hr 04/05/21 11:32 04/05/21 12:20 04/05/21 12:50 Temperature 98.4 F Pulse Rate 65 61 60 Respiratory Rate 18 18 18 Blood Pressure 146/73 H 128/66 122/58 L Pulse Oximetry 96 93 95 04/05/21 13:13 04/05/21 13:30 Temperature Pulse Rate 53 L 52 L Respiratory Rate 19 18 Blood Pressure 120/63 114/60 Pulse Oximetry 93 93 MDM - Neuro Symptoms/Deficit Lab Data Result diagrams: 04/05/21 11:50 04/05/21 11:50 Labs: Lab Results 04/05/21 04/05/21 04/05/21 Range/Units 11:50 11:50 11:50 WBC 7.6 (4.5-11.0) X10^3/uL RBC 4.48 L (4.5-5.9) X10^6/uL Hgb 14.2 (13.5-17.5) g/dL Hct 42.1 (41-53) % MCV 93.9 (80-100) fL MCH 31.6 (26-34) PG MCHC 33.7 (30-36) % RDW 13.8 (11.6-14.8) % Plt Count 241 (150-400) X10^3/uL Neut % (Auto) 70.4 (50-75) % Lymph % (Auto) 15.5 L (25-40) % [place] % (Auto) 8.8 (3-14) % Eos % (Auto) 4.3 H (2-4) % Baso % (Auto) 1.0 (0-2) % Neut # (Auto) 5300 (4719-8136) /uL Lymph # (Auto) 1200 (4159-3196) /uL [place] # (Auto) 700 (0-900) /uL Eos # (Auto) 300 (0-450) /uL Baso # (Auto) 100 (0-100) /uL D-Dimer < 200 (<230) ng/mL Sodium 136 L (137-145) mmol/L Potassium 4.6 (3.4-5.1) mmol/L Chloride 101 (98-107) mmol/L Carbon Dioxide 29 (22-32) mmol/L BUN 17 (9-20) mg/dL Creatinine 0.91 (0.66-1.25) mg/dL Estimated GFR > 60.0 (>60) mL/min BUN/Creatinine Ratio 18.7 (6-22) Glucose 93 (80-110) mg/dL Calcium 9.4 (8.4-10.2) mg/dL Total Bilirubin 0.5 (0.2-1.3) mg/dL AST 24 (17-59) IU/L ALT 15 (<50) IU/L Alkaline Phosphatase 41 (38-126) U/L Total Creatine Kinase 68 (55-170) U/L CK-MB (CK-2) TNP CK-MB (CK-2) Rel Index TNP Troponin I < 0.012 (0.01-0.034) ng/mL NT-Pro-B Natriuret Pep (<450) pg/mL Total Protein 7.0 (6.3-8.2) g/dL Albumin 4.3 (3.5-5.0) g/dL Globulin 2.7 (1.7-4.1) g/dL Albumin/Globulin Ratio 1.6 (1.0-2.8) Lipase 161 (23-300) U/L // Range/Units 11:50 WBC (4.5-11.0) X10^3/uL RBC (4.5-5.9) X10^6/uL Hgb (13.5-17.5) g/dL Hct (41-53) % MCV (80-100) fL MCH (26-34) PG MCHC (30-36) % RDW (11.6-14.8) % Plt Count (150-400) X10^3/uL Neut % (Auto) (50-75) % Lymph % (Auto) (25-40) % [place] % (Auto) (3-14) % Eos % (Auto) (2-4) % Baso % (Auto) (0-2) % Neut # (Auto) (2379-7707) /uL Lymph # (Auto) (8682-9716) /uL [place] # (Auto) (0-900) /uL Eos # (Auto) (0-450) /uL Baso # (Auto) (0-100) /uL D-Dimer (<230) ng/mL Sodium (137-145) mmol/L Potassium (3.4-5.1) mmol/L Chloride (98-107) mmol/L Carbon Dioxide (22-32) mmol/L BUN (9-20) mg/dL Creatinine (0.66-1.25) mg/dL Estimated GFR (>60) mL/min BUN/Creatinine Ratio (6-22) Glucose (80-110) mg/dL Calcium (8.4-10.2) mg/dL Total Bilirubin (0.2-1.3) mg/dL AST (17-59) IU/L ALT (<50) IU/L Alkaline Phosphatase (38-126) U/L Total Creatine Kinase (55-170) U/L CK-MB (CK-2) CK-MB (CK-2) Rel Index Troponin I (0.01-0.034) ng/mL NT-Pro-B Natriuret Pep 243 (<450) pg/mL Total Protein (6.3-8.2) g/dL Albumin (3.5-5.0) g/dL Globulin (1.7-4.1) g/dL Albumin/Globulin Ratio (1.0-2.8) Lipase (23-300) U/L Imaging Data Chest x-ray: Radiologist's Impression: [address] [address] XRay Report Signed Patient: Nadeem Sewell MR#: [id number] : 1945 Acct:[id number] Age/Sex: 75 / M Date of Service: 04/05/21 Loc: ED Accession Number: [id number] ?? Procedure: XR chest 1V Ordering Provider: Stephanie Main D.O. PROCEDURE:? XR CHEST 1V ? INDICATIONS:? chest pain ? TECHNIQUE:? One view of the chest was acquired.? ? COMPARISON:? [facility], , CHEST 1 VIEW, 08/29/2017, 14:36.? [facility], , XR CHEST 1V, 09/11/2017, 16:27. ? FINDINGS:? ? Surgical changes and devices:? None.? ? Lungs and pleura:? Lungs are clear.? No pleural effusions or pneumothorax.? ? Mediastinum:? Mediastinal contours appear normal.? Heart size is normal.? ? Bones and chest wall:? No suspicious bony lesions.? Overlying soft tissues appear unremarkable.? ? IMPRESSION:? ? No acute cardiopulmonary process is seen.? Dictated by: Rohan Mak M.D. on 04/05/2021 at 11:07 ? ? Approved by: Rohan Mak M.D. on 04/05/2021 at 11:08? CT scan - head: Radiologist's Impression: [address] [address] [address] Scan Report Signed Patient: Nadeem Sewell MR#: [id number] : 1945 Acct:[id number] Age/Sex: 75 / M Date of Service: 04/05/21 Loc: ED Accession Number: [id number] ?? Procedure: CT head/brain wo con Ordering Provider: Stephanie Main D.O. PROCEDURE:? CT HEAD/BRAIN WO CON ? INDICATIONS:? syncope ? TECHNIQUE:? Noncontrast 4.5 mm thick angled axial sections acquired from the foramen magnum to the vertex, with coronal and sagittal reformats.? For radiation dose reduction, the following was used:? automated exposure control, adjustment of mA and/or kV according to patient size.? ? COMPARISON:? None. ? FINDINGS:? Image quality:? Excellent.? ? CSF spaces:? Basal cisterns are patent.? No extra-axial fluid collections.? The ventricles are symmetric in size and shape.? ? Brain:? No intracranial bleeds or masses.? There is cerebral volume loss for age, with resultant ventricular and sulcal prominence.? There are periventricular and deep white matter chronic small vessel ischemic changes.? There is intracranial internal carotid artery atherosclerosis.? ? Skull and face:? Calvarium and visualized facial bones appear intact, without suspicious lesions.? ? Sinuses:? Visualized sinuses and mastoids are clear.? ? IMPRESSION:? No acute intracranial process. ? Dictated by: Félix Mario M.D. on 04/05/2021 at 12:47 ? ? Approved by: Félix Mario M.D. on 04/05/2021 at 12:48?? ECG Data Attestation: I personally reviewed and interpreted this ECG as follows: Interpretation: Sinus rhythm, left axis deviation, left bundle branch block. Rate of 61 MN 204, QRS of 162 QTC 444. Patient has prior from 09/11/2017 which appears to today's. [facility] Narrative Medical decision making narrative: This is a 75-year-old male who on Tuesday evening had what sounds like a syncopal episode. He did not have any changes that time described by his who was present with him or his family who shortly saw him afterwards that seems suspicious for TIA or stroke. Patient had a short loss of consciousness followed by a quick return to his normal baseline mentation. He does not have any clear changes on his imaging, EKG or lab work but does have a history of cardiomyopathy and was recommended to have echo and likely rhythm evaluation. Patient has not had any recurrent episodes since then psi feel he is appropriate for discharge home for outpatient follow-up for the rest of his workup. He has follow-up tomorrow by phone with his physician and within the week for his shingles shot. Stroke Core Measures Exclusion Criteria TPA in CVA: Symptom Onset >3 or 4.5 Hours (NIH 0) Discharge Plan Departure Patient Disposition: Home Clinical Impression: Syncope Instructions: DI for Syncope in Adults (Fainting) Activity Restrictions/Additional Instructions: Follow-up with your physician for recheck in the next several days. Stop your losartan if you are taking intermittently and continue to monitor your blood pressure. If you continue to run 110s to 100 systolic and have lightheadedness frequently they may decrease your metoprolol. Repeat echo would be appropriate to re-evaluate. It would also be appropriate to have a Holter monitor or ZIO patch at some point to evaluate for any heart arrhythmias. None were noted today. Your labs, head CT and chest x-ray and EKG did not show a clear cause for your symptoms today. Please return for recurrent symptoms, severe headaches, lightheadedness or passing out, numbness, tingling or weakness, facial droop, difficulty with speaking, or other new or concerning symptoms. Prescriptions: No Action finasteride 5 MG tablet 5 mg PO QDAY Qty: 0 0RF tamsulosin [Flomax] 0.4 MG capsule,extended release 24hr 0.4 mg PO QDAY Qty: 0 0RF ranitidine HCl 150 MG tablet 150 mg PO BID Qty: 0 0RF tiotropium bromide [Spiriva Respimat] 2.5 MCG/ACTUATION mist 2.5 mcg IH BID Qty: 0 0RF levalbuterol tartrate [Xopenex HFA] 45 MCG/INH HFA aerosol inhaler 2 puff INH Q4HP PRNQty: 1 0RF apixaban [Eliquis] 5 MG tablet 5 mg PO BID Qty: 60 3RF diltiazem HCl 180 MG capsule,extended release 24hr 180 mg PO QDAY Qty: 0 0RF diltiazem HCl 120 mg capsule,extended release 24hr 60 mg PO DAILY Qty: 20 0RF Rx Instructions: Take with your current 180 mg diltiazem for a total of 240 mg daily. Referrals: Sade Blanc MD [Primary Care Provider] -
[2021-04-05 12:15] LABS: Add Manual Diff / Slide Review NO; Basophils Absolute Auto 100 /uL (0-100); Eosinophils Absolute Auto 300 /uL (0-450); Eosinophils Percent Auto 4.3 % (2-4); Hematocrit 42.1 % (41-53); Hemoglobin 14.2 g/dL (13.5-17.5); Lymphocytes Absolute Auto 1200 /uL (1100-4500); Lymphocytes Percent Auto 15.5 % (25-40); Mean Corpuscular HGB Conc 33.7 % (30-36); Mean Corpuscular Hemoglobin 31.6 PG (26-34); Mean Corpuscular Volume 93.9 fL (80-100); Monocytes Absolute Auto 700 /uL (0-900); Monocytes Percent Auto 8.8 % (3-14); Neutrophils Absolute Auto 5300 /uL (1500-7000); Neutrophils Percent Auto 70.4 % (50-75); Platelet Count 241 X10^3/uL (150-400); Red Blood Cell Count 4.48 X10^6/uL (4.5-5.9); Red Cell Distribution Width 13.8 % (11.6-14.8); White Blood Cell Count 7.6 X10^3/uL (4.5-11.0)
[2021-04-05 12:19] LABS: Alanine Aminotransferase 15 IU/L (<50); Albumin 4.3 g/dL (3.5-5.0); Albumin Globulin Ratio 1.6 (1.0-2.8); Alkaline Phosphatase 41 U/L (38-126); Aspartate Aminotransferase 24 IU/L (17-59); BUN Creatinine Ratio 18.7 (6-22); Bilirubin Total 0.5 mg/dL (0.2-1.3); Blood Urea Nitrogen 17 mg/dL (9-20); Calcium 9.4 mg/dL (8.4-10.2); Carbon Dioxide 29 mmol/L (22-32); Chloride 101 mmol/L (98-107); Creatine Kinase 68 U/L (55-170); D Dimer < 200 ng/mL (<230); Estimated Glomerular Filt Rate > 60.0 mL/min (>60); Globulin 2.7 g/dL (1.7-4.1); Glucose 93 mg/dL (80-110); HEMOLYSIS < 15 (0-50); Lipase 161 U/L (23-300); Potassium 4.6 mmol/L (3.4-5.1); Sodium 136 mmol/L (137-145)
[2021-04-05 12:20] VITALS: BP 128/66; PULSE 61; RESP 18; O2SAT 93
[2021-04-05 12:28] LABS: NT-proBNP (BNP-Adult 18+) 243 pg/mL (<450)
[2021-04-05 12:30] LABS: Troponin I < 0.012 ng/mL (0.01-0.034)
[2021-04-05 12:50] VITALS: BP 122/58; PULSE 60; RESP 18; O2SAT 95
[2021-04-05 13:13] VITALS: BP 120/63; PULSE 53; RESP 19; O2SAT 93
[2021-04-05 13:30] VITALS: BP 114/60; PULSE 52; RESP 18; O2SAT 93
== END 2021-04-05 14:30 | disposition home or self-care (01) ==
PROVIDERS: Emergency Provider Emergency Medicine; PCP Internal Medicine
DX: R55 Syncope and collapse (principal); I44.7 Left bundle-branch block, unspecified; Z79.01 Long term (current) use of anticoagulants
CPT/HCPCS: 36415; 70450; 71045; 80053; 82550; 83690; 83880; 84484; 85025; 85379; 93005; 99285

== ENCOUNTER → 2021-09-02 09:07 | Outpatient (CLI) | payer OTHER, SELFPAY ==
[2021-09-02 09:51] LABS: COVID19 -Nasal RAPID Negative (Negative)
== END ==
PROVIDERS: PCP Internal Medicine; Referring Provider Internal Medicine; Visit Provider Internal Medicine
DX: Z20.822 Contact with and (suspected) exposure to COVID-19 (principal)
CPT/HCPCS: 87635; C9803

== ENCOUNTER → 2021-09-09 08:49 | Outpatient (CLI) | payer OTHER, SELFPAY ==
[2021-09-09 09:40] LABS: COVID19 -Nasal RAPID Negative (Negative)
== END ==
PROVIDERS: PCP Internal Medicine; Referring Provider Internal Medicine; Visit Provider Internal Medicine
DX: Z20.822 Contact with and (suspected) exposure to COVID-19 (principal)
CPT/HCPCS: 87635; C9803

== ENCOUNTER → 2021-09-10 07:47 | Outpatient (CLI) | payer OTHER, SELFPAY ==
--- NOTE | 2021-09-16 11:28 | PM.PFT.1 ---
Pulmonary Function Test Referral & Results Date Patient Seen: 09/10/21 Requesting provider: Yane Diaz Results: The spirometry demonstrates an FVC of 3.83 L which is 89% of predicted. The FEV1 was measured at 1.01 L which is 33% of predicted. The FEV1/FVC ratio was 26 which is 36% of predicted. Following the administration of bronchodilator there was a 30% improvement in FEV1 and a 69% improvement in FEF 25-75% Lung volumes show an SVC of 3.54 L which is 77% of predicted. The diffusing capacity was measured at 9.77 which is 29% of predicted. No hemoglobin value was provided, so no correction for potential anemia could be made, if appropriate. The maximum voluntary ventilation was severely reduced Interpretation: This study demonstrates severe obstructive lung disease with FEV1 at only 33% of predicted. There is evidence of significant benefit following bronchodilator as above There is also [id number] restrictive lung disease present based on reduction SVC There is a severe reduction diffusing capacity suggesting significant disease at the capillary alveolar level to the point where patient may well be hypoxic at times on room air Clinical correlation suggested
== END ==
PROVIDERS: PCP Internal Medicine; Referring Provider Internal Medicine; Visit Provider Internal Medicine
DX: J44.9 Chronic obstructive pulmonary disease, unspecified (principal); Z87.891 Personal history of nicotine dependence
CPT/HCPCS: 94060; 94726; 94729

== ENCOUNTER → 2021-09-23 09:52 | Outpatient (CLI) | payer OTHER, SELFPAY ==
[2021-09-23 12:41] LABS: Cholesterol 161 mg/dL (140-199); HDL Cholesterol 50 mg/dL (40-60); LDL Cholesterol Calculated 91 mg/dL (<100); Triglycerides 98 mg/dL (35-150)
== END ==
PROVIDERS: PCP Internal Medicine; Referring Provider Internal Medicine Cardiovascular Disease; Visit Provider Internal Medicine Cardiovascular Disease
DX: E78.5 Hyperlipidemia, unspecified (principal)
CPT/HCPCS: 36415; 80061

== ENCOUNTER 2022-01-14 12:30 | Outpatient (RCR) | payer OTHER, SELFPAY | END 2022-01-14 12:31 | LOC: PUL 12:30 | PROVIDERS: Referring Provider Internal Medicine; Visit Provider Internal Medicine | DX: J44.9 Chronic obstructive pulmonary disease, unspecified (principal) | CPT/HCPCS: 94626 ==

== ENCOUNTER → 2022-05-20 07:04 | Outpatient (CLI) | payer OTHER, SELFPAY ==
[2022-05-20 08:27] LABS: Add Manual Diff / Slide Review NO; Basophils Absolute Auto 0 /uL (0-100); Basophils Percent Auto 0.8 % (0-2); Eosinophils Absolute Auto 300 /uL (0-450); Hematocrit 41.2 % (41-53); Hemoglobin 13.9 g/dL (13.5-17.5); Lymphocytes Absolute Auto 1100 /uL (1100-4500); Lymphocytes Percent Auto 18.6 % (25-40); Mean Corpuscular HGB Conc 33.8 % (30-36); Mean Corpuscular Hemoglobin 31.6 PG (26-34); Mean Corpuscular Volume 93.5 fL (80-100); Monocytes Absolute Auto 600 /uL (0-900); Monocytes Percent Auto 9.2 % (3-14); Neutrophils Absolute Auto 4000 /uL (1500-7000); Neutrophils Percent Auto 66.4 % (50-75); Platelet Count 233 X10^3/uL (150-400); Red Cell Distribution Width 14.1 % (11.6-14.8)
[2022-05-20 08:42] LABS: BUN Creatinine Ratio 15.1 (6-22); Blood Urea Nitrogen 13 mg/dL (9-20); Calcium 8.8 mg/dL (8.4-10.2); Carbon Dioxide 30 mmol/L (22-32); Chloride 101 mmol/L (98-107); Cholesterol 146 mg/dL (140-199); Estimated Glomerular Filt Rate > 60 mL/min (>60); Glucose 89 mg/dL (80-110); HDL Cholesterol 55 mg/dL (40-60); HEMOLYSIS < 15 (0-50); LDL Cholesterol Calculated 70 mg/dL (<100); Potassium 4.1 mmol/L (3.4-5.1); Sodium 137 mmol/L (137-145); Triglycerides 107 mg/dL (35-150)
== END ==
PROVIDERS: Referring Provider Internal Medicine Cardiovascular Disease; Visit Provider Internal Medicine Cardiovascular Disease
DX: E78.5 Hyperlipidemia, unspecified (principal); I42.9 Cardiomyopathy, unspecified
CPT/HCPCS: 36415; 80048; 80061; 85025

== ENCOUNTER 2022-09-26 06:48 | Emergency (ER) | payer OTHER, SELFPAY ==
[2022-09-26 06:54] VITALS: BP 115/65; PULSE 82; RESP 24; TEMP 36.8; O2SAT 95; BMI 27.1
--- NOTE | 2022-09-26 07:18 | DI.RAD.S_ITS ---
PROCEDURE: XR CHEST 2V INDICATIONS: SOB, cough TECHNIQUE: 2 views of the chest were acquired. COMPARISON: [facility], CR, XR CHEST 2 VIEWS, 05/21/2021, 15:17. [facility], CR, XR CHEST 2 VIEWS, 07/20/2021, 15:04. FINDINGS: Surgical changes and devices: There is a cardiac pacemaker in stable position. Lungs and pleura: Small left pleural effusion. Mild interstitial prominence. No focal infiltrate or consolidation. No pneumothorax. Mediastinum: Mediastinal contours are normal. Heart size is normal. Bones and chest wall: No suspicious bony abnormalities. Soft tissues appear unremarkable. IMPRESSION: 1. Small left pleural effusion and mild interstitial prominence suggesting mild CHF. Dictated by: Sanna Neri M.D. on 09/26/2022 at 8:09 Approved by: Sanna Neri M.D. on 09/26/2022 at 8:11
[2022-09-26 07:20] VITALS: PULSE 70; RESP 16; O2SAT 96
--- NOTE | 2022-09-26 07:22 | ED.SOB ---
HPI - SOB/Dyspnea General Chief Complaint: Shortness of Breath/Dyspnea Stated Complaint: copd,cough Time Seen by Provider: 09/26/22 07:17 Source: patient and family Mode of arrival: Ambulatory Limitations: no limitations History of Present Illness HPI Narrative: 77-year-old male former smoker with COPD on home oxygen, AFib on Eliquis presents with his in the chief complaint of increasing cough and shortness of breath over the past few days. He states his shortness of breath is worse with exertion and seems to improve with rest. He gets increasingly short of breath during his coughing fits which occasionally bring up sputum. He denies runny nose or sore throat. He has felt feverish and achy but denies any measured fever. He denies nausea, vomiting diarrhea. He is had no change in medications or diet and denies recent travel. He has been at a few group meetings in the past week or so but denies any known exposure to other ill persons. Related Data Home Medications Medication Instructions Recorded Confirmed finasteride 5 mg tablet 5 mg PO QDAY ##0 03/22/17 ranitidine HCl 150 mg tablet 150 mg PO BID ##0 03/22/17 tamsulosin 0.4 mg capsule (Flomax) 0.4 mg PO QDAY ##0 03/22/17 tiotropium bromide 2.5 2.5 mcg IH BID ##0 03/22/17 mcg/actuation mist for inhalation (Spiriva Respimat) diltiazem HCl 180 mg 180 mg PO QDAY ##0 08/29/17 capsule,extended release 24 hr Previous Rx's Medication Instructions Recorded apixaban 5 mg tablet (Eliquis) 5 mg PO BID #60 tabs 03/23/17 levalbuterol tartrate 45 2 puff INH Q4HP PRN #1 inh 03/23/17 mcg/actuation aerosol inhaler (Xopenex HFA) diltiazem HCl 120 mg 60 mg PO DAILY #20 caps 09/11/17 capsule,extended release 24 hr doxycycline hyclate 100 mg tablet 100 mg PO BID #20 tabs 09/26/22 prednisone 20 mg tablet 20 mg PO DAILY #5 tabs 09/26/22 Allergies Allergy/AdvReac Type Severity Reaction Status Date / Time No Known Allergies Allergy Verified 09/11/17 16:17 Review of Systems Review of Systems Narrative: GENERAL: See HPI HEENT: Denies sinus pain, ear pain, sore throat, difficulty swallowing, dizziness. RESPIRATORY: see HPI CARDIOVASCULAR: Denies chest pain, palpitations, orthopnea, edema, GASTROINTESTINAL: Denies nausea, vomiting, abdominal pain, diarrhea, constipation, melena. : Denies dysuria, frequency, incontinence, hematuria, urinary retention. MUSCULOSKELETAL: denies weakness, joint pain, or bony pain SKIN: Denies rash, skin lesions, or other NEUROLOGIC: Denies weakness, headache, numbness, change in speech, confusion, seizures, incoordination. PSYCHIATRIC: No concerning psychosocial issues. 12 point review of systems is negative except for those stated above Patient History Medical History Atrial fibrillation COPD (chronic obstructive pulmonary disease) Social History Smoking Status: Former smoker Smoking Status: Former smoker alcohol intake frequency: holidays/special occasions only Substance Use Type: does not use Exam Narrative Exam Narrative: GENERAL: [77] year old patient appears stated age. Well-developed patient, in mild distress. HEAD: Atraumatic. Normocephalic. EYES: Pupils equal round and reactive. Extraocular motions intact. No scleral icterus. No injection or drainage. ENT: Nose without bleeding, purulent drainage. Throat without erythema, tonsillar hypertrophy or exudate. Airway patent. NECK: Trachea midline. Non tender CARDIOVASCULAR: Regular rate and rhythm without murmurs, gallops, or rubs. RESPIRATORY: Decreased breath sounds throughout with prolonged expiratory phase. No obvious wheezes, rales or rhonchi GASTROINTESTINAL: Abdomen soft, non-tender, nondistended. EXTREMITIES: No edema or joint tenderness. BACK: Nontender without deformity or crepitance. No flank tenderness. NEURO: AOx3. SKIN: No rash or erythema of visible areas Initial Vital Signs Initial Vital Signs: Vital Signs Temperature 98.3 F 09/26/22 06:54 Pulse Rate 82 09/26/22 06:54 Respiratory Rate 24 09/26/22 06:54 Blood Pressure 115/65 09/26/22 06:54 Pulse Oximetry 95 09/26/22 06:54 Oxygen Delivery Method Nasal Cannula 09/26/22 06:54 Oxygen Flow Rate 2 09/26/22 06:54 Course Orders Ordered: ED Orders 09/26/22 07:10 Complete Blood Count AUTO DIFF Stat Comprehensive Metabolic Panel Stat Magnesium Stat NT-proBNP (BNP-Adult 18+) Stat Procalcitonin Stat 09/26/22 07:18 XR chest 2V Stat 09/26/22 07:30 Respiratory Panel (Film Array) Stat 09/26/22 07:31 RT Consult Eval and Treat NOW Discontinued Medications Albuterol/Ipratropium (Albuterol/Ipratropium 3 Ml Ampul) 3 ml INH NOW ONE Stop: 09/26/22 08:03 Last Admin: 09/26/22 08:06 Dose: 3 ml Documented By: AMADEO Methylprednisolone (Methylprednisolone 125 Mg/2 Ml Vial) 125 mg IV NOW ONE Stop: 09/26/22 07:32 Last Admin: 09/26/22 07:38 Dose: 125 mg Documented By: CARLOS Vital Signs Vital signs: Vital Signs - 8 hr 09/26/22 06:54 09/26/22 07:20 09/26/22 07:30 Temperature 98.3 F Pulse Rate 82 70 69 Respiratory Rate 24 16 Blood Pressure 115/65 Pulse Oximetry 95 96 96 Oxygen Delivery Method Nasal Cannula Nasal Cannula Oxygen Flow Rate 2 2 Fraction of Inspired Oxygen 09/26/22 08:07 09/26/22 08:00 09/26/22 08:21 Temperature Pulse Rate 69 70 Respiratory Rate 18 24 Blood Pressure 105/66 Pulse Oximetry 94 95 Oxygen Delivery Method Room Air Oxygen Flow Rate 0 Fraction of Inspired Oxygen 09/26/22 08:21 Temperature Pulse Rate 67 Respiratory Rate 17 Blood Pressure Pulse Oximetry 94 Oxygen Delivery Method Oxygen Flow Rate Fraction of Inspired Oxygen MDM - SOB/Dyspnea Lab Data 09/26/22 07:10 09/26/22 07:10 Labs: Lab Results 09/26/22 09/26/22 09/26/22 Range/Units 07:10 07:10 07:10 WBC 12.4 H (4.5-11.0) X10^3/uL RBC 4.43 L (4.5-5.9) X10^6/uL Hgb 14.1 (13.5-17.5) g/dL Hct 41.4 (41-53) % MCV 93.4 (80-100) fL MCH 31.9 (26-34) PG MCHC 34.2 (30-36) % RDW 13.7 (11.6-14.8) % Plt Count 196 (150-400) X10^3/uL Neut % (Auto) 83.0 H (50-75) % Lymph % (Auto) 7.4 L (25-40) % [place] % (Auto) 6.5 (3-14) % Eos % (Auto) 2.7 (2-4) % Baso % (Auto) 0.4 (0-2) % Neut # (Auto) 37048 H (1704-1153) /uL Lymph # (Auto) 900 L (7215-7176) /uL [place] # (Auto) 800 (0-900) /uL Eos # (Auto) 300 (0-450) /uL Baso # (Auto) 100 (0-100) /uL Sodium 136 L (137-145) mmol/L Potassium 4.4 (3.4-5.1) mmol/L Chloride 101 (98-107) mmol/L Carbon Dioxide 28 (22-32) mmol/L BUN 13 (9-20) mg/dL Creatinine 0.86 (0.66-1.25) mg/dL Estimated GFR > 60 (>60) mL/min BUN/Creatinine Ratio 15.1 (6-22) Glucose 116 H (80-110) mg/dL Calcium 8.8 (8.4-10.2) mg/dL Magnesium 2.0 (1.6-2.3) mg/dL Total Bilirubin 0.9 (0.2-1.3) mg/dL AST 29 (17-59) IU/L ALT 17 (<50) IU/L Alkaline Phosphatase 40 (38-126) U/L NT-Pro-B Natriuret Pep 129 (<450) pg/mL Total Protein 6.9 (6.3-8.2) g/dL Albumin 4.1 (3.5-5.0) g/dL Globulin 2.8 (1.7-4.1) g/dL Albumin/Globulin Ratio 1.5 (1.0-2.8) Procalcitonin 0.04 (<0.5) ng/mL Chlamy pneumoniae PCR (Not Detect) Adenovirus (PCR) (Not Detect) B. pertussis DNA (PCR) (Not Detecte) B.parapertussis DNA PCR (Not Detecte) Coronavirus OC43 (PCR) (Not Detect) Coronavirus HKU1 (PCR) (Not Detect) Coronavirus 229E (PCR) (Not Detect) SARS-CoV-2 (PCR) (Not Detecte) Coronavirus NL63 (PCR) (Not Detect) Human Metapneumovir PCR (Not Detect) Influenza Type A (PCR) (Not Detect) Influenza Type B (PCR) (Not Detect) M. pneumoniae (PCR) (Not Detect) Parainfluenza 1 (PCR) (Not Detect) Parainfluenza 2 (PCR) (Not Detect) Parainfluenza 3 (PCR) (Not Detect) Parainfluenza 4 (PCR) (Not Detect) RSV (PCR) (Not Detect) Entero/Rhino (PCR) (Not Detect) 09/26/22 Range/Units 07:30 WBC (4.5-11.0) X10^3/uL RBC (4.5-5.9) X10^6/uL Hgb (13.5-17.5) g/dL Hct (41-53) % MCV (80-100) fL MCH (26-34) PG MCHC (30-36) % RDW (11.6-14.8) % Plt Count (150-400) X10^3/uL Neut % (Auto) (50-75) % Lymph % (Auto) (25-40) % [place] % (Auto) (3-14) % Eos % (Auto) (2-4) % Baso % (Auto) (0-2) % Neut # (Auto) (9953-6210) /uL Lymph # (Auto) (3036-0371) /uL [place] # (Auto) (0-900) /uL Eos # (Auto) (0-450) /uL Baso # (Auto) (0-100) /uL Sodium (137-145) mmol/L Potassium (3.4-5.1) mmol/L Chloride (98-107) mmol/L Carbon Dioxide (22-32) mmol/L BUN (9-20) mg/dL Creatinine (0.66-1.25) mg/dL Estimated GFR (>60) mL/min BUN/Creatinine Ratio (6-22) Glucose (80-110) mg/dL Calcium (8.4-10.2) mg/dL Magnesium (1.6-2.3) mg/dL Total Bilirubin (0.2-1.3) mg/dL AST (17-59) IU/L ALT (<50) IU/L Alkaline Phosphatase (38-126) U/L NT-Pro-B Natriuret Pep (<450) pg/mL Total Protein (6.3-8.2) g/dL Albumin (3.5-5.0) g/dL Globulin (1.7-4.1) g/dL Albumin/Globulin Ratio (1.0-2.8) Procalcitonin (<0.5) ng/mL Chlamy pneumoniae PCR Not detected (Not Detect) Adenovirus (PCR) Not detected (Not Detect) B. pertussis DNA (PCR) Not detected (Not Detecte) B.parapertussis DNA PCR Not detected (Not Detecte) Coronavirus OC43 (PCR) Not detected (Not Detect) Coronavirus HKU1 (PCR) Not detected (Not Detect) Coronavirus 229E (PCR) Not detected (Not Detect) SARS-CoV-2 (PCR) Not detected (Not Detecte) Coronavirus NL63 (PCR) Not detected (Not Detect) Human Metapneumovir PCR Not detected (Not Detect) Influenza Type A (PCR) Not detected (Not Detect) Influenza Type B (PCR) Not detected (Not Detect) M. pneumoniae (PCR) Not detected (Not Detect) Parainfluenza 1 (PCR) Not detected (Not Detect) Parainfluenza 2 (PCR) Not detected (Not Detect) Parainfluenza 3 (PCR) Not detected (Not Detect) Parainfluenza 4 (PCR) Not detected (Not Detect) RSV (PCR) Not detected (Not Detect) Entero/Rhino (PCR) Not detected (Not Detect) MDM Narrative Medical decision making narrative: CC: 77-year-old male with increasing shortness of breath and cough Complicating co-morbidities: Age, COPD, home oxygen, AFib Data collected from: Patient Medical records reviewed: Prior notes reviewed in our EMR Differential considered, but not limited to: Pneumonia, COPD exacerbation, viral upper respiratory infection versus other Exam documented above, pertinent findings include: Heart rate regular, no obvious significant work of breathing, tachypnea, no conversational dyspnea, no wheezes, rales or rhonchi, abdomen soft Lab Test results independently reviewed as above. Pertinent findings: Independently reviewed EKG as above Imaging studies independently reviewed: CXR with small effusion of uncertain significance. No organized pneumonia Scores Used: PORT Score (79) Treatments: Steroids, duoneb Re-evaluations: Improvement in breathsounds, patient feeling better Discussion: Patient with O2 dependent COPD presents with cough occasionally productive of off colored sputum feeling a bit ?punky?. Vitals and history are otherwise reassuring. There is a slight bump in his white count with subtle relative left shift, no signs of anemia, labs otherwise reassuring. Chest x-ray without organized pneumonia. Patient is in no significant respiratory distress, feeling better after above-stated therapies, no signs of sepsis. Low port score suggestive of appropriate this for discharge. Patient treated for atypical pneumonia and prescription sent to his pharmacy of choice. Return precautions discussed including worsening difficulty in breathing, fever, shaking chills or other concerning symptoms. Disposition: see below, along with detailed discharge instructions that have been reviewed with patient as well as indications for ED re-evaluation and additional outpatient follow up Discharge Plan Departure Patient Disposition: Home Clinical Impression: Atypical pneumonia, COPD with acute exacerbation Instructions: DI for Chronic Obstructive Pulmonary Disease, DI for Atypical Pneumonia Activity Restrictions/Additional Instructions: *You have been diagnosed with [atypical pneumonia and COPD exacerbation] *What to do: *Please continue to take your regular medications as directed. [x ] New medication prescriptions sent to your pharmacy: [[facility] ] [ ] New medication written as a paper prescription [ ] No new medications given *Please follow up with your primary care provider in 2-3 days, call for an appointment. Let them know you were seen in the Emergency Department and that we ask that you be seen in follow up. We will electronically transmit a record of today's note if your PCP is in our system *If you do not have a primary care provider please contact the [facility] Resource line at [phone]. They will ask some questions about your medical history and help get you set up with a doctor in the community. *Return to Emergency Department if you should have any new, worsening or concerning symptoms, such as [fever greater than 101 F, shaking chills, worsening pain, persistent vomiting or other bothersome symptoms] Prescriptions: New prednisone 20 mg tablet 20 mg PO DAILY Qty: 5 0RF Rx Instructions: administer with food or milk doxycycline hyclate 100 mg tablet 100 mg PO BID Qty: 20 0RF No Action finasteride 5 MG tablet 5 mg PO QDAY Qty: 0 tamsulosin [Flomax] 0.4 MG capsule,extended release 24hr 0.4 mg PO QDAY Qty: 0 ranitidine HCl 150 MG tablet 150 mg PO BID Qty: 0 tiotropium bromide [Spiriva Respimat] 2.5 MCG/ACTUATION mist 2.5 mcg IH BID Qty: 0 levalbuterol tartrate [Xopenex HFA] 45 MCG/INH HFA aerosol inhaler 2 puff INH Q4HP PRNQty: 1 0RF apixaban [Eliquis] 5 MG tablet 5 mg PO BID Qty: 60 3RF diltiazem HCl 180 MG capsule,extended release 24hr 180 mg PO QDAY Qty: 0 diltiazem HCl 120 mg capsule,extended release 24hr 60 mg PO DAILY Qty: 20 0RF Rx Instructions: Take with your current 180 mg diltiazem for a total of 240 mg daily. Referrals: Miscellaneous,Doctor, MD [Primary Care Provider] - Stand Alone Forms: Patient Portal/API
[2022-09-26 07:30] VITALS: PULSE 69; O2SAT 96
[2022-09-26] MEDS: methylPREDNISolone 125 MG/2 ML VIAL IV (07:38)
[2022-09-26 07:47] LABS: Add Manual Diff / Slide Review NO; Basophils Absolute Auto 100 /uL (0-100); Basophils Percent Auto 0.4 % (0-2); Eosinophils Absolute Auto 300 /uL (0-450); Eosinophils Percent Auto 2.7 % (2-4); Hematocrit 41.4 % (41-53); Hemoglobin 14.1 g/dL (13.5-17.5); Lymphocytes Absolute Auto 900 /uL (1100-4500); Lymphocytes Percent Auto 7.4 % (25-40); Mean Corpuscular HGB Conc 34.2 % (30-36); Mean Corpuscular Hemoglobin 31.9 PG (26-34); Mean Corpuscular Volume 93.4 fL (80-100); Monocytes Absolute Auto 800 /uL (0-900); Monocytes Percent Auto 6.5 % (3-14); Neutrophils Absolute Auto 10300 /uL (1500-7000); Platelet Count 196 X10^3/uL (150-400); Red Blood Cell Count 4.43 X10^6/uL (4.5-5.9); Red Cell Distribution Width 13.7 % (11.6-14.8); White Blood Cell Count 12.4 X10^3/uL (4.5-11.0)
[2022-09-26 07:51] LABS: Alanine Aminotransferase 17 IU/L (<50); Albumin 4.1 g/dL (3.5-5.0); Albumin Globulin Ratio 1.5 (1.0-2.8); Alkaline Phosphatase 40 U/L (38-126); Aspartate Aminotransferase 29 IU/L (17-59); BUN Creatinine Ratio 15.1 (6-22); Bilirubin Total 0.9 mg/dL (0.2-1.3); Blood Urea Nitrogen 13 mg/dL (9-20); Calcium 8.8 mg/dL (8.4-10.2); Carbon Dioxide 28 mmol/L (22-32); Chloride 101 mmol/L (98-107); Estimated Glomerular Filt Rate > 60 mL/min (>60); Globulin 2.8 g/dL (1.7-4.1); Glucose 116 mg/dL (80-110); HEMOLYSIS 36 (0-50); Potassium 4.4 mmol/L (3.4-5.1); Sodium 136 mmol/L (137-145); Total Protein 6.9 g/dL (6.3-8.2)
[2022-09-26 08:00] VITALS: PULSE 70; RESP 24; O2SAT 95
[2022-09-26 08:00] LABS: NT-proBNP (BNP-Adult 18+) 129 pg/mL (<450)
[2022-09-26] MEDS: ALBUTEROL/IPRATROPIUM 3 ML AMPUL INH (08:06)
[2022-09-26 08:07] VITALS: PULSE 69; RESP 18; O2SAT 94
[2022-09-26 08:07] LABS: Procalcitonin 0.04 ng/mL (<0.5)
[2022-09-26 08:21] VITALS: BP 105/66; PULSE 67; RESP 17; O2SAT 94
[2022-09-26 10:01] LABS: Adenovirus Not Detected (Not Detect); B. parapertussis Not Detected (Not Detecte); Bordetella pertussis Not Detected (Not Detecte); Chlamydophila pneumoniae Not Detected (Not Detect); Coronavirus 229E Not Detected (Not Detect); Coronavirus HKU1 Not Detected (Not Detect); Coronavirus NL 63 Not Detected (Not Detect); Coronavirus OC43 Not Detected (Not Detect); Human Metapneumovirus Not Detected (Not Detect); Human Rhinovirus/Enterovirus Not Detected (Not Detect); Influenza A Not Detected (Not Detect); Influenza B Not Detected (Not Detect); Mycoplasma pneumoniae Not Detected (Not Detect); Parainfluenza Virus 1 Not Detected (Not Detect); Parainfluenza Virus 2 Not Detected (Not Detect); Parainfluenza Virus 3 Not Detected (Not Detect); Parainfluenza Virus 4 Not Detected (Not Detect); Respiratory Syncytial Virus Not Detected (Not Detect); SARS- CoV-2 Not Detected (Not Detecte)
== END 2022-09-26 08:36 | disposition home or self-care (01) ==
PROVIDERS: Emergency Provider Emergency Medicine
DX: J18.9 Pneumonia, unspecified organism (principal); J44.1 Chronic obstructive pulmonary disease with (acute) exacerbation; R06.02 Shortness of breath; Z79.01 Long term (current) use of anticoagulants
CPT/HCPCS: 36415; 71046; 80053; 83735; 83880; 84145; 85025; 87633; 94640; 96374; 99284; 99285; J2930

== ENCOUNTER → 2022-10-20 10:21 | Outpatient (CLI) | payer OTHER, SELFPAY ==
[2022-10-20 12:08] LABS: Add Manual Diff / Slide Review NO; Basophils Absolute Auto 0 /uL (0-100); Basophils Percent Auto 0.5 % (0-2); Eosinophils Absolute Auto 400 /uL (0-450); Hematocrit 38.8 % (41-53); Hemoglobin 13.3 g/dL (13.5-17.5); Lymphocytes Absolute Auto 1100 /uL (1100-4500); Lymphocytes Percent Auto 14.8 % (25-40); Mean Corpuscular HGB Conc 34.4 % (30-36); Mean Corpuscular Hemoglobin 31.8 PG (26-34); Mean Corpuscular Volume 92.6 fL (80-100); Monocytes Absolute Auto 600 /uL (0-900); Monocytes Percent Auto 8.9 % (3-14); Neutrophils Absolute Auto 5100 /uL (1500-7000); Neutrophils Percent Auto 70.8 % (50-75); Platelet Count 239 X10^3/uL (150-400); Red Blood Cell Count 4.19 X10^6/uL (4.5-5.9); Red Cell Distribution Width 14.5 % (11.6-14.8); White Blood Cell Count 7.2 X10^3/uL (4.5-11.0)
[2022-10-20 12:24] LABS: BUN Creatinine Ratio 16.1 (6-22); Blood Urea Nitrogen 14 mg/dL (9-20); Calcium 8.8 mg/dL (8.4-10.2); Carbon Dioxide 28 mmol/L (22-32); Chloride 98 mmol/L (98-107); Estimated Glomerular Filt Rate > 60 mL/min (>60); Glucose 97 mg/dL (80-110); HEMOLYSIS < 15 (0-50); Potassium 4.7 mmol/L (3.4-5.1); Sodium 131 mmol/L (137-145)
== END ==
PROVIDERS: Referring Provider Internal Medicine Cardiovascular Disease; Visit Provider Internal Medicine Cardiovascular Disease
DX: I42.9 Cardiomyopathy, unspecified (principal)
CPT/HCPCS: 36415; 80048; 85025

== ENCOUNTER 2023-03-24 18:23 | Emergency (ER) | payer OTHER, SELFPAY ==
[2023-03-24] VITALS (9 sets, daily range): BP systolic 110–162; BP diastolic 58–88; PULSE 82–100; RESP 18–20; TEMP 36.8–37.1; O2SAT 94–98; BMI 27.1
--- NOTE | 2023-03-24 18:57 | ED_ITS ---
HPI - Male Genitourinary General Chief complaint: Urogenital-Male Stated complaint: UTI Time Seen by Provider: 03/24/23 18:50 Source: patient and EMS Mode of arrival: EMS History of Present Illness HPI Narrative: Gentleman comes to the hospital because of what he perceives to be a urinary tract infection. He says for the past 48 hours he is had dysuria, urgency and frequency. Says this is precisely as he has felt before when he is had urinary tract infections. He suspected that this was the case but tonight was having shaking chills and rigors much more than he has ever experienced previously. He is not had any nausea or vomiting or abdominal pain or back pain. No other symptoms. No documented fever at home. Related Data Home Medications Medication Instructions Recorded Confirmed finasteride 5 mg tablet 5 mg PO QDAY ##0 03/22/17 ranitidine HCl 150 mg tablet 150 mg PO BID ##0 03/22/17 tamsulosin 0.4 mg capsule (Flomax) 0.4 mg PO QDAY ##0 03/22/17 tiotropium bromide 2.5 2.5 mcg IH BID ##0 03/22/17 mcg/actuation mist for inhalation (Spiriva Respimat) diltiazem HCl 180 mg 180 mg PO QDAY ##0 08/29/17 capsule,extended release 24 hr Previous Rx's Medication Instructions Recorded apixaban 5 mg tablet (Eliquis) 5 mg PO BID #60 tabs 03/23/17 levalbuterol tartrate 45 2 puff INH Q4HP PRN #1 inh 03/23/17 mcg/actuation aerosol inhaler (Xopenex HFA) diltiazem HCl 120 mg 60 mg (1/2 x 120 mg) PO DAILY #20 09/11/17 capsule,extended release 24 hr caps doxycycline hyclate 100 mg tablet 100 mg PO BID #20 tabs 09/26/22 prednisone 20 mg tablet 20 mg PO DAILY #5 tabs 09/26/22 cephalexin 500 mg capsule 500 mg PO QID 10 days #40 caps 03/24/23 Allergies Allergy/AdvReac Type Severity Reaction Status Date / Time No Known Allergies Allergy Verified 09/11/17 16:17 Patient History Medical History Atrial fibrillation COPD (chronic obstructive pulmonary disease) Social History Smoking Status: Former smoker Smoking Status: Former smoker alcohol intake frequency: holidays/special occasions only Substance Use Type: does not use Exam Narrative Exam Narrative: GENERAL: Alert, cooperative and in no distress. HEAD: Atraumatic. Normocephalic. EYES: Sclera are clear without icterus. Extraocular movements are full. ENT: No rhinorrhea. Oropharynx is moist. Mouth exam is benign. NECK: Supple. Full range of motion. CARDIOVASCULAR: Normal rate and rhythm without murmur gallop or rub. RESPIRATORY: Clear to auscultation. Breath sounds equal bilaterally. No wheezes, rales, or rhonchi. GASTROINTESTINAL: Abdomen soft, non-tender, nondistended. EXTREMITIES: No edema, full range of motion. No obvious trauma. BACK: Normal inspection, no CVA tenderness. NEURO: Nonfocal examination, normal speech. SKIN: No rash or erythema of visible areas PSYCH: Normally oriented. Normal range of affect. Appropriate behavior Initial Vital Signs Initial Vital Signs: Vital Signs Pulse Rate 90 03/24/23 18:28 Blood Pressure 162/88 H 03/24/23 18:28 Pulse Oximetry 96 03/24/23 18:28 Oxygen Delivery Method Room Air 03/24/23 18:28 Oxygen Flow Rate 2 03/24/23 18:28 Course Orders Ordered: ED Orders 03/24/23 18:55 CBC Auto Diff [Complete Blood Count AUTO DIFF] Stat CMP [Comprehensive Metabolic Panel] Stat Lactate (Lactic Acid) Stat 03/24/23 19:00 COVID19 -Nasal RAPID Stat 03/24/23 19:50 UA dip and micro [Urinalysis and Microscopic] Stat Discontinued Medications Acetaminophen (Acetaminophen 325 Mg Tablet) 975 mg PO NOW ONE Stop: 03/24/23 18:56 Last Admin: 03/24/23 19:17 Dose: 975 mg Documented By: RB Sodium Chloride (Normal Saline 0.9%) 1,000 mls @ 1,000 mls/hr IV BOLUS ONE Stop: 03/24/23 19:54 Last Admin: 03/24/23 19:22 Dose: 1,000 mls/hr Documented By: RB Ceftriaxone Sodium 1,000 mg/ (Sodium Chloride) 100 mls @ 200 mls/hr IV NOW ONE Stop: 03/24/23 20:08 Last Admin: 03/24/23 20:13 Dose: 200 mls/hr Reevaluation(s) Reevaluation #1: Patient looks well and feels well. White blood cell count is elevated but he does not have a fever or lactic acid elevation. Renal function is baseline. He does have urinary tract infection and I suspect pyelonephritis. Will treat with IV Rocephin here and discharged with home cephalexin and other instructions as noted on the discharge paperwork. Careful return precautions given. I considered hospitalization but do not feel it is necessary at this time. Vital Signs Vital signs: Vital Signs - 8 hr 03/24/23 18:28 03/24/23 18:28 03/24/23 18:30 Temperature Pulse Rate 90 Respiratory Rate Blood Pressure 162/88 H 160/87 H Pulse Oximetry 96 Oxygen Delivery Method Room Air Oxygen Flow Rate 2 03/24/23 18:30 03/24/23 18:31 03/24/23 19:00 Temperature 98.5 F Pulse Rate 91 H 90 100 H Respiratory Rate 20 Blood Pressure 162/88 H Pulse Oximetry 95 95 98 Oxygen Delivery Method Nasal Cannula Nasal Cannula Oxygen Flow Rate 2 2 03/24/23 19:09 03/24/23 19:09 03/24/23 19:17 Temperature 98.7 F Pulse Rate 91 H Respiratory Rate Blood Pressure 124/79 Pulse Oximetry 94 Oxygen Delivery Method Oxygen Flow Rate 03/24/23 19:30 03/24/23 19:30 03/24/23 20:00 Temperature Pulse Rate 85 90 Respiratory Rate Blood Pressure 110/58 L Pulse Oximetry 94 94 Oxygen Delivery Method Oxygen Flow Rate 03/24/23 20:00 Temperature 98.3 F Pulse Rate Respiratory Rate 18 Blood Pressure 116/66 Pulse Oximetry Oxygen Delivery Method Oxygen Flow Rate MDM - Male Genitourinary Lab Data 03/24/23 18:55 03/24/23 18:55 Labs: Lab Results 03/24/23 03/24/23 03/24/23 Range/Units 18:55 19:00 19:50 WBC 14.1 H (4.5-11.0) X10^3/uL RBC 4.17 L (4.5-5.9) X10^6/uL Hgb 13.2 L (13.5-17.5) g/dL Hct 38.6 L (41-53) % MCV 92.5 (80-100) fL MCH 31.7 (26-34) PG MCHC 34.2 (30-36) % RDW 14.2 (11.6-14.8) % Plt Count 195 (150-400) X10^3/uL Neut % (Auto) 85.9 H (50-75) % Lymph % (Auto) 5.0 L (25-40) % [place] % (Auto) 7.1 (3-14) % Eos % (Auto) 1.6 L (2-4) % Baso % (Auto) 0.4 (0-2) % Neut # (Auto) 88575 H (2974-6800) /uL Lymph # (Auto) 700 L (1111-5123) /uL [place] # (Auto) 1000 H (0-900) /uL Eos # (Auto) 200 (0-450) /uL Baso # (Auto) 100 (0-100) /uL Sodium 133 L (137-145) mmol/L Potassium 4.3 (3.4-5.1) mmol/L Chloride 100 (98-107) mmol/L Carbon Dioxide 26 (22-32) mmol/L BUN 19 (9-20) mg/dL Creatinine 0.98 (0.66-1.25) mg/dL Estimated GFR > 60 (>60) mL/min BUN/Creatinine Ratio 19.4 (6-22) Glucose 110 (80-110) mg/dL Lactate 1.4 (0.7-2.1) mmol/L Calcium 9.2 (8.4-10.2) mg/dL Total Bilirubin 0.8 (0.2-1.3) mg/dL AST 23 (17-59) IU/L ALT 14 (<50) IU/L Alkaline Phosphatase 40 (38-126) U/L Total Protein 6.9 (6.3-8.2) g/dL Albumin 4.0 (3.5-5.0) g/dL Globulin 2.9 (1.7-4.1) g/dL Albumin/Globulin Ratio 1.4 (1.0-2.8) Urine Color Yellow Urine Appearance Cloudy Urine pH 5.5 (4.5-8.0) Ur Specific [place] >=1.030 H (1.000-1.035) Urine Protein 1+ H (Negative) Urine Glucose (UA) Negative (Negative) g/dL Urine Ketones Trace H (NEGATIVE) Urine Occult Blood 2+ H (Negative) Urine Nitrate Positive H (Negative) Urine Bilirubin Negative (NEGATIVE) Urine Urobilinogen 0.2 (0.2) E.U./dL Ur Leukocyte Esterase 2+ H (NEGATIVE) SARS-CoV-2 (PCR) Negative (Negative) Discharge Plan Departure Patient Disposition: Home Clinical Impression: Acute pyelonephritis Instructions: DI for Kidney Infection Activity Restrictions/Additional Instructions: It appears that you have a bladder/kidney infection. We gave you antibiotics here in the vein and they will be effective for the next 24 hours. Tomorrow evening start taking cephalexin 500 mg 4 times a day for the next week. It may take a few days until your really starting to feel quite a bit better but as long as you do not feel a lot worse it is okay to treat this at home. You should return to the hospital if you develop repeated vomiting, such fatigue that you are not able to get to the bathroom and about the house reasonably well or other severe symptoms. Make sure you are drinking plenty of fluid and getting extra rest. Take Tylenol 1000 mg every 6 hours to help keep the pain and fever under control. Prescriptions: New cephalexin 500 mg capsule 500 mg PO QID 10 Days Qty: 40 0RF No Action finasteride 5 MG tablet 5 mg PO QDAY Qty: 0 tamsulosin [Flomax] 0.4 MG capsule,extended release 24hr 0.4 mg PO QDAY Qty: 0 ranitidine HCl 150 MG tablet 150 mg PO BID Qty: 0 tiotropium bromide [Spiriva Respimat] 2.5 MCG/ACTUATION mist 2.5 mcg IH BID Qty: 0 levalbuterol tartrate [Xopenex HFA] 45 MCG/INH HFA aerosol inhaler 2 puff INH Q4HP PRNQty: 1 0RF apixaban [Eliquis] 5 MG tablet 5 mg PO BID Qty: 60 3RF diltiazem HCl 180 MG capsule,extended release 24hr 180 mg PO QDAY Qty: 0 prednisone 20 mg tablet 20 mg PO DAILY Qty: 5 0RF Rx Instructions: administer with food or milk doxycycline hyclate 100 mg tablet 100 mg PO BID Qty: 20 0RF diltiazem HCl 120 mg capsule,extended release 24hr 60 mg PO DAILY Qty: 20 0RF Rx Instructions: Take with your current 180 mg diltiazem for a total of 240 mg daily. Stand Alone Forms: Patient Portal/API
[2023-03-24 19:16] LABS: Add Manual Diff / Slide Review NO; Basophils Absolute Auto 100 /uL (0-100); Basophils Percent Auto 0.4 % (0-2); Eosinophils Absolute Auto 200 /uL (0-450); Eosinophils Percent Auto 1.6 % (2-4); Hematocrit 38.6 % (41-53); Hemoglobin 13.2 g/dL (13.5-17.5); Lymphocytes Absolute Auto 700 /uL (1100-4500); Mean Corpuscular HGB Conc 34.2 % (30-36); Mean Corpuscular Hemoglobin 31.7 PG (26-34); Mean Corpuscular Volume 92.5 fL (80-100); Monocytes Absolute Auto 1000 /uL (0-900); Monocytes Percent Auto 7.1 % (3-14); Neutrophils Absolute Auto 12100 /uL (1500-7000); Neutrophils Percent Auto 85.9 % (50-75); Platelet Count 195 X10^3/uL (150-400); Red Blood Cell Count 4.17 X10^6/uL (4.5-5.9); Red Cell Distribution Width 14.2 % (11.6-14.8); White Blood Cell Count 14.1 X10^3/uL (4.5-11.0)
[2023-03-24] MEDS: ACETAMINOPHEN 325 MG TABLET 975 MG PO (19:17)
[2023-03-24] MEDS: SODIUM CHLORIDE 0.9% 1,000 ML 1000 ML IV (19:22)
[2023-03-24 19:29] LABS: Lactate (Lactic Acid) 1.4 mmol/L (0.7-2.1)
[2023-03-24 19:31] LABS: Alanine Aminotransferase 14 IU/L (<50); Albumin Globulin Ratio 1.4 (1.0-2.8); Alkaline Phosphatase 40 U/L (38-126); Aspartate Aminotransferase 23 IU/L (17-59); BUN Creatinine Ratio 19.4 (6-22); Bilirubin Total 0.8 mg/dL (0.2-1.3); Blood Urea Nitrogen 19 mg/dL (9-20); Calcium 9.2 mg/dL (8.4-10.2); Carbon Dioxide 26 mmol/L (22-32); Chloride 100 mmol/L (98-107); Estimated Glomerular Filt Rate > 60 mL/min (>60); Globulin 2.9 g/dL (1.7-4.1); Glucose 110 mg/dL (80-110); HEMOLYSIS 24 (0-50); Potassium 4.3 mmol/L (3.4-5.1); Sodium 133 mmol/L (137-145); Total Protein 6.9 g/dL (6.3-8.2)
[2023-03-24 19:31] LABS: COVID19 -Nasal RAPID Negative (Negative)
[2023-03-24 20:02] LABS: Bilirubin Urine UA NEGATIVE (NEGATIVE); Color Urine UA YELLOW; Glucose Urine UA NEGATIVE (Negative); Ketones Urine UA TRACE (NEGATIVE); Leukocyte Esterase Urine UA 2+ (NEGATIVE); Nitrite Urine UA POSITIVE (Negative); Occult Blood Urine UA 2+ (Negative); Protein Urine UA 1+ (Negative); Specific Gravity Urine UA >=1.030 (1.000-1.035); Urobilinogen Urine UA 0.2 E.U./dL (0.2); pH Urine UA 5.5 (4.5-8.0)
[2023-03-24 20:03] LABS: Appearance Urine UA CLOUDY
[2023-03-24] MEDS: cefTRIAXone 1,000 MG in SODIUM CHLORIDE 0.9% 100 ML 200 MG IV (20:13)
[2023-03-24 20:24] LABS: Bacteria Urine Many (>30); Culture Indicated Urine Specimen Cultured; RBC Urine 0-1/HPF (0-5/HPF); Squamous Epithelial Cell Urine None Seen (0-5/HPF); WBC Urine >100/HPF (0-5/HPF)
== END 2023-03-24 20:54 | disposition home or self-care (01) ==
PROVIDERS: Emergency Provider Family Medicine Addiction Medicine
DX: N10 Acute pyelonephritis (principal); Z20.822 Contact with and (suspected) exposure to COVID-19; Z79.01 Long term (current) use of anticoagulants
CPT/HCPCS: 36415; 80053; 81001; 83605; 85025; 87077; 87086; 87186; 87635; 96365; 99284; 99285; C9803; J0696

== ENCOUNTER 2023-04-08 14:38 | Emergency (ER) | payer OTHER, SELFPAY ==
[2023-04-08 14:45] VITALS: BP 135/69; PULSE 83; RESP 18; TEMP 36.4; O2SAT 95; BMI 26.4
[2023-04-08 15:17] LABS: Appearance Urine UA CLOUDY; Bilirubin Urine UA NEGATIVE (NEGATIVE); Color Urine UA YELLOW; Glucose Urine UA NEGATIVE (Negative); Ketones Urine UA NEGATIVE (NEGATIVE); Leukocyte Esterase Urine UA 2+ (NEGATIVE); Nitrite Urine UA POSITIVE (Negative); Occult Blood Urine UA 2+ (Negative); Protein Urine UA 1+ (Negative); Specific Gravity Urine UA 1.025 (1.000-1.035); Urobilinogen Urine UA 0.2 E.U./dL (0.2)
[2023-04-08 15:24] LABS: Bacteria Urine Moderate (10-30); Culture Indicated Urine Specimen Cultured; RBC Urine 5-10/HPF (0-5/HPF); Squamous Epithelial Cell Urine 1-5 /HPF (0-5/HPF); WBC Urine 30-100/HPF (0-5/HPF)
--- NOTE | 2023-04-08 15:46 | ED.MALEGU ---
HPI - Male Genitourinary <May Spence PA-C - Last Filed: 04/08/23 15:51> General Chief complaint: Urogenital-Male Stated complaint: thinks UTI Time Seen by Provider: 04/08/23 14:54 Source: patient Mode of arrival: Ambulatory History of Present Illness HPI Narrative: Patient is a 73-year-old male who presents with urinary frequency and dysuria x 3 days. He was diagnosed with pyelonephritis on 03/24 and treated with ceftriaxone IV and a 10 day course of cephalexin. His urine culture showed pansensitive E coli. He reports he did get better after several days of cephalexin and he completed the course of antibiotics. He reports no fever or chills over the past several days. He is on home oxygen at baseline. He takes tamsulosin twice daily, has seen a urologist in the past who told him he had prostate enlargement but there was nothing to do besides take the tamsulosin. Related Data Home Medications Medication Instructions Recorded Confirmed tamsulosin 0.4 mg capsule (Flomax) 0.4 mg PO QDAY ##0 03/22/17 tiotropium bromide 2.5 2.5 mcg IH BID ##0 03/22/17 mcg/actuation mist for inhalation (Spiriva Respimat) Previous Rx's Medication Instructions Recorded apixaban 5 mg tablet (Eliquis) 5 mg PO BID #60 tabs 03/23/17 levalbuterol tartrate 45 2 puff INH Q4HP PRN #1 inh 03/23/17 mcg/actuation aerosol inhaler (Xopenex HFA) ciprofloxacin HCl 500 mg tablet 500 mg PO Q12H #14 tabs 04/08/23 Allergies Allergy/AdvReac Type Severity Reaction Status Date / Time No Known Allergies Allergy Verified 04/08/23 14:45 Review of Systems <May Spence PA-C - Last Filed: 04/08/23 15:51> Review of Systems ROS Unobtainable: All systems reviewed & are unremarkable except as noted in HPI and below Patient History <May Spence PA-C - Last Filed: 04/08/23 15:51> Medical History COPD (chronic obstructive pulmonary disease) Atrial fibrillation Social History Smoking Status: Former smoker Smoking Status: Former smoker alcohol intake frequency: holidays/special occasions only Substance Use Type: does not use Exam <May Spence PA-C - Last Filed: 04/08/23 15:51> Narrative Exam Narrative: GENERAL: 77 year old patient appears stated age. Well-developed patient, in no distress. On home O2. NEURO: AOx3. HEAD: Atraumatic. Normocephalic. EYES: Pupils equal round and reactive. Extraocular motions intact. No scleral icterus. No injection or drainage. ENT: Nose without bleeding or purulent drainage. Airway patent. NECK: Trachea midline. Non tender RESPIRATORY: No increased work of breathing GASTROINTESTINAL: No suprapubic tenderness, no CVA tenderness. EXTREMITIES: No edema or joint tenderness. SKIN: No rash or erythema of visible areas Initial Vital Signs Initial Vital Signs: Vital Signs Temperature 97.6 F 04/08/23 14:45 Pulse Rate 83 04/08/23 14:45 Respiratory Rate 18 04/08/23 14:45 Blood Pressure 135/69 04/08/23 14:45 Pulse Oximetry 95 04/08/23 14:45 Oxygen Delivery Method Nasal Cannula 04/08/23 14:45 Oxygen Flow Rate 2 04/08/23 14:45 <James Gordon DO - Last Filed: 04/08/23 16:16> Initial Vital Signs Initial Vital Signs: Vital Signs Temperature 97.6 F 04/08/23 14:45 Pulse Rate 83 04/08/23 14:45 Respiratory Rate 18 04/08/23 14:45 Blood Pressure 135/69 04/08/23 14:45 Pulse Oximetry 95 04/08/23 14:45 Oxygen Delivery Method Nasal Cannula 04/08/23 14:45 Oxygen Flow Rate 2 04/08/23 14:45 Course <May Spence PA-C - Last Filed: 04/08/23 15:51> Orders Ordered: ED Orders 04/08/23 15:05 Urinalysis and Microscopic Stat Urine Culture Stat Discontinued Medications Ondansetron HCl (Ondansetron 4 Mg Odt) 4 mg SL NOW PRN PRN Reason: Nausea And Vomiting Ondansetron HCl (Ondansetron 4 Mg/2 Ml Inj) 4 mg IV NOW PRN PRN Reason: Nausea And Vomiting Vital Signs Vital signs: Vital Signs - 8 hr 04/08/23 14:45 Temperature 97.6 F Pulse Rate 83 Respiratory Rate 18 Blood Pressure 135/69 Pulse Oximetry 95 Oxygen Delivery Method Nasal Cannula Oxygen Flow Rate 2 <James Gordon DO - Last Filed: 04/08/23 16:16> Orders Ordered: ED Orders 04/08/23 15:05 Urinalysis and Microscopic Stat Urine Culture Stat Discontinued Medications Ondansetron HCl (Ondansetron 4 Mg Odt) 4 mg SL NOW PRN PRN Reason: Nausea And Vomiting Ondansetron HCl (Ondansetron 4 Mg/2 Ml Inj) 4 mg IV NOW PRN PRN Reason: Nausea And Vomiting Vital Signs Vital signs: Vital Signs - 8 hr 04/08/23 14:45 Temperature 97.6 F Pulse Rate 83 Respiratory Rate 18 Blood Pressure 135/69 Pulse Oximetry 95 Oxygen Delivery Method Nasal Cannula Oxygen Flow Rate 2 MDM - Male Genitourinary <May Spence PA-C - Last Filed: 04/08/23 15:51> Lab Data Labs: Lab Results 04/08/23 Range/Units 15:05 Urine Color Yellow Urine Appearance Cloudy Urine pH 6.0 (4.5-8.0) Ur Specific [place] 1.025 (1.000-1.035) Urine Protein 1+ H (Negative) Urine Glucose (UA) Negative (Negative) g/dL Urine Ketones Negative (NEGATIVE) Urine Occult Blood 2+ H (Negative) Urine Nitrate Positive H (Negative) Urine Bilirubin Negative (NEGATIVE) Urine Urobilinogen 0.2 (0.2) E.U./dL Ur Leukocyte Esterase 2+ H (NEGATIVE) Urine RBC 5-10/hpf H (0-5/HPF) Urine WBC 30-100/hpf H (0-5/HPF) Ur Squamous Epith Cells 1-5 /hpf (0-5/HPF) Urine Bacteria Moderate (10-30) H (None) Ur Culture Indicated? Specimen cultured MDM Narrative Medical decision making narrative: Multiple etiologies for patient's symptoms considered including, but not limited to: UTI, prostatitis, pyelonephritis UA consistent with urinary tract infection. Patient has no fever or chills and feels well overall, doubt upper tract infection. Vital signs are normal today, labs considered but not indicated. Urine culture from 2 weeks ago shows pansensitive E coli. Patient improved on cephalexin but has a recurrent infection so we will escalate to ciprofloxacin. Advised of potential side effects. Patient's symptoms improved over duration of stay with above-stated therapies. Findings and discharge diagnosis discussed with patient/family followed by verbalization of understanding Return precautions discussed with patient/family whom verbalize understanding of diagnosis and plan <James Gordon, DO - Last Filed: 04/08/23 16:16> Lab Data Labs: Lab Results 04/08/23 Range/Units 15:05 Urine Color Yellow Urine Appearance Cloudy Urine pH 6.0 (4.5-8.0) Ur Specific [place] 1.025 (1.000-1.035) Urine Protein 1+ H (Negative) Urine Glucose (UA) Negative (Negative) g/dL Urine Ketones Negative (NEGATIVE) Urine Occult Blood 2+ H (Negative) Urine Nitrate Positive H (Negative) Urine Bilirubin Negative (NEGATIVE) Urine Urobilinogen 0.2 (0.2) E.U./dL Ur Leukocyte Esterase 2+ H (NEGATIVE) Urine RBC 5-10/hpf H (0-5/HPF) Urine WBC 30-100/hpf H (0-5/HPF) Ur Squamous Epith Cells 1-5 /hpf (0-5/HPF) Urine Bacteria Moderate (10-30) H (None) Ur Culture Indicated? Specimen cultured Discharge Plan Departure Patient Disposition: Home Clinical Impression: Complicated UTI (urinary tract infection) Instructions: DI for Urinary Tract Infection (UTI), DI for Urinary Retention in Men Activity Restrictions/Additional Instructions: *You have been diagnosed with urinary tract infection. I have prescribed a medication called ciprofloxacin which she will take twice a day for 7 days. Please continue to drink lots of water. If you develop a fever or chills after taking the antibiotics for 48 hours, please come back to the emergency department. Please follow up with your primary care provider, especially if you continue to get more urinary tract infections, at which point I think you should see Urology. Ciprofloxacin is generally very well tolerated but if you develop pain or tenderness in your tendons, please stop taking the medication and call your doctor. *What to do: *Please continue to take your regular medications as directed. [x] New medication prescriptions sent to your pharmacy: [facility] [ ] New medication written as a paper prescription [ ] No new medications given *Please follow up with your primary care provider in 2-3 days, call for an appointment. Let them know you were seen in the Emergency Department and that we ask that you be seen in follow up. We will electronically transmit a record of today's note if your PCP is in our system *If you do not have a primary care provider please contact the [facility] Resource line at [phone]. They will ask some questions about your medical history and help get you set up with a doctor in the community. *Return to Emergency Department if you should have any new, worsening or concerning symptoms, such as [fever greater than 101 F, shaking chills, worsening pain, persistent vomiting or other concerning symptoms]. Prescriptions: New ciprofloxacin HCl 500 mg tablet 500 mg PO Q12H Qty: 14 0RF Continued tamsulosin [Flomax] 0.4 MG capsule,extended release 24hr 0.4 mg PO QDAY Qty: 0 tiotropium bromide [Spiriva Respimat] 2.5 MCG/ACTUATION mist 2.5 mcg IH BID Qty: 0 levalbuterol tartrate [Xopenex HFA] 45 MCG/INH HFA aerosol inhaler 2 puff INH Q4HP PRNQty: 1 0RF apixaban [Eliquis] 5 MG tablet 5 mg PO BID Qty: 60 3RF Discontinued finasteride 5 MG tablet 5 mg PO QDAY Qty: 0 ranitidine HCl 150 MG tablet 150 mg PO BID Qty: 0 diltiazem HCl 180 MG capsule,extended release 24hr 180 mg PO QDAY Qty: 0 prednisone 20 mg tablet 20 mg PO DAILY Qty: 5 0RF Rx Instructions: administer with food or milk doxycycline hyclate 100 mg tablet 100 mg PO BID Qty: 20 0RF diltiazem HCl 120 mg capsule,extended release 24hr 60 mg PO DAILY Qty: 20 0RF Rx Instructions: Take with your current 180 mg diltiazem for a total of 240 mg daily. Referrals: Annabella Barker ARNP [Non-Staff] - Miscellaneous,Doctor, MD [Primary Care Provider] - Stand Alone Forms: Patient Portal/API ED Sign-out <James Gordon, DO - Last Filed: 04/08/23 16:16> Cosign ED Attending Cosignature Attestation: Dr Gordon Co-Sign Statement: I was available for consultation during this patient's emergency department visit. This chart is signed by myself for administrative purposes only. I did not have direct contact with this patient during this visit. They were seen independently by the APC.
== END 2023-04-08 15:50 | disposition home or self-care (01) ==
PROVIDERS: Emergency Provider Physician Assistant
DX: N39.0 Urinary tract infection, site not specified (principal)
CPT/HCPCS: 81001; 87077; 87086; 87186; 99284

== ENCOUNTER → 2023-04-19 10:18 | Outpatient (CLI) | payer OTHER, SELFPAY ==
[2023-04-19 11:05] LABS: Add Manual Diff / Slide Review NO; Basophils Absolute Auto 100 /uL (0-100); Basophils Percent Auto 0.8 % (0-2); Eosinophils Absolute Auto 400 /uL (0-450); Eosinophils Percent Auto 5.5 % (2-4); Hematocrit 39.1 % (41-53); Hemoglobin 13.2 g/dL (13.5-17.5); Lymphocytes Absolute Auto 1200 /uL (1100-4500); Mean Corpuscular HGB Conc 33.7 % (30-36); Mean Corpuscular Hemoglobin 31.3 PG (26-34); Monocytes Absolute Auto 700 /uL (0-900); Monocytes Percent Auto 9.9 % (3-14); Neutrophils Absolute Auto 4900 /uL (1500-7000); Neutrophils Percent Auto 66.8 % (50-75); Platelet Count 249 X10^3/uL (150-400); Red Blood Cell Count 4.21 X10^6/uL (4.5-5.9); White Blood Cell Count 7.3 X10^3/uL (4.5-11.0)
[2023-04-19 11:43] LABS: BUN Creatinine Ratio 13.8 (6-22); Blood Urea Nitrogen 11 mg/dL (9-20); Calcium 9.1 mg/dL (8.4-10.2); Carbon Dioxide 26 mmol/L (22-32); Chloride 100 mmol/L (98-107); Cholesterol 144 mg/dL (140-199); Estimated Glomerular Filt Rate > 60 mL/min (>60); Glucose 128 mg/dL (80-110); HDL Cholesterol 41 mg/dL (40-60); HEMOLYSIS < 15 (0-50); LDL Cholesterol Calculated 65 mg/dL (<100); Potassium 4.1 mmol/L (3.4-5.1); Sodium 133 mmol/L (137-145); Triglycerides 190 mg/dL (35-150)
== END ==
PROVIDERS: PCP Registered Nurse; Referring Provider Internal Medicine Cardiovascular Disease; Visit Provider Internal Medicine Cardiovascular Disease
DX: I42.9 Cardiomyopathy, unspecified (principal); E78.5 Hyperlipidemia, unspecified
CPT/HCPCS: 36415; 80048; 80061; 85025

== ENCOUNTER 2023-04-22 11:21 | Emergency (ER) | payer OTHER, SELFPAY ==
[2023-04-22 11:35] VITALS: BP 140/76; PULSE 72; RESP 18; TEMP 36.8; O2SAT 98; BMI 26.0
--- NOTE | 2023-04-22 11:55 | ED_ITS ---
HPI - Male Genitourinary <Jesus Green PA-C - Last Filed: 04/22/23 12:56> General Chief complaint: Urogenital-Male Stated complaint: poss uti Time Seen by Provider: 04/22/23 11:44 Source: patient Mode of arrival: Family Vehicle History of Present Illness HPI Narrative: This is a 77-year-old male presents emergency department due to dysuria and urinary frequency for the last couple of days. She denies any fevers, chills. Does report some lower abdominal discomfort. Denies any penile discharge. States he would a bad experience with the urologist in [place] and has not followed up since. Has been to the ED twice in the last month for similar symptoms as noted in the record review below. Related Data Home Medications Medication Instructions Recorded Confirmed tamsulosin 0.4 mg capsule (Flomax) 0.4 mg PO QDAY ##0 03/22/17 tiotropium bromide 2.5 2.5 mcg IH BID ##0 03/22/17 mcg/actuation mist for inhalation (Spiriva Respimat) Previous Rx's Medication Instructions Recorded apixaban 5 mg tablet (Eliquis) 5 mg PO BID #60 tabs 03/23/17 levalbuterol tartrate 45 2 puff INH Q4HP PRN #1 inh 03/23/17 mcg/actuation aerosol inhaler (Xopenex HFA) ciprofloxacin HCl 500 mg tablet 500 mg PO Q12H #14 tabs 04/08/23 nitrofurantoin 100 mg PO Q12H 5 days #10 caps 04/22/23 monohydrate/macrocrystals 100 mg capsule (Macrobid) Allergies Allergy/AdvReac Type Severity Reaction Status Date / Time No Known Allergies Allergy Verified 04/22/23 11:40 Review of Systems <Jesus Green PA-C - Last Filed: 04/22/23 12:56> Review of Systems Narrative: GENERAL: Denies chills, fatigue, malaise, fever, sweats. HEENT: Denies sinus pain, ear pain, sore throat, difficulty swallowing, dizziness. RESPIRATORY: Denies dyspnea, cough, wheezing, hemoptysis, sputum. CARDIOVASCULAR: Denies chest pain, palpitations, orthopnea, edema, GASTROINTESTINAL: Denies nausea, vomiting, abdominal pain, diarrhea, constipation, melena. : Reports dysuria, frequency, denies incontinence, hematuria, urinary retention. MUSCULOSKELETAL: denies weakness, joint pain, or bony pain SKIN: Denies rash, skin lesions, or other NEUROLOGIC: Denies weakness, headache, numbness, change in speech, confusion, seizures, incoordination. PSYCHIATRIC: No concerning psychosocial issues. 12 point review of systems is negative except for those stated above Patient History <Jesus Green PA-C - Last Filed: 04/22/23 12:56> Medical History COPD (chronic obstructive pulmonary disease) Atrial fibrillation Social History Smoking Status: Former smoker Smoking Status: Former smoker alcohol intake frequency: holidays/special occasions only Substance Use Type: does not use Exam <Jesus Green PA-C - Last Filed: 04/22/23 12:56> Narrative Exam Narrative: GENERAL: Well-developed patient, in mild distress. HEAD: Atraumatic. Normocephalic. EYES: Pupils equal round and reactive. Extraocular motions intact. No scleral icterus. No injection or drainage. ENT: Nose without bleeding, purulent drainage. Throat without erythema, tonsillar hypertrophy or exudate. Airway patent. NECK: Trachea midline. Non tender CARDIOVASCULAR: Regular rate and rhythm without murmurs, gallops, or rubs. RESPIRATORY: Clear to auscultation. Breath sounds equal bilaterally. No wheezes, rales, or rhonchi. GASTROINTESTINAL: Abdomen soft, non-tender, nondistended. EXTREMITIES: No edema or joint tenderness. BACK: Nontender without deformity or crepitance. No flank tenderness. NEURO: AOx3. SKIN: No rash or erythema of visible areas Initial Vital Signs Initial Vital Signs: Vital Signs Temperature 98.2 F 04/22/23 11:35 Pulse Rate 72 04/22/23 11:35 Respiratory Rate 18 04/22/23 11:35 Blood Pressure 140/76 04/22/23 11:35 Pulse Oximetry 98 04/22/23 11:35 Oxygen Delivery Method Nasal Cannula 04/22/23 11:35 Oxygen Flow Rate 2 04/22/23 11:35 <Lisa Jones DO - Last Filed: 04/23/23 06:57> Initial Vital Signs Initial Vital Signs: Vital Signs Temperature 98.2 F 04/22/23 11:35 Pulse Rate 72 04/22/23 11:35 Respiratory Rate 18 04/22/23 11:35 Blood Pressure 140/76 04/22/23 11:35 Pulse Oximetry 98 04/22/23 11:35 Oxygen Delivery Method Nasal Cannula 04/22/23 11:35 Oxygen Flow Rate 2 04/22/23 11:35 Course <Jesus Green PA-C - Last Filed: 04/22/23 12:56> Orders Ordered: ED Orders 04/22/23 12:06 Urine Culture Stat Urine Microscopic Stat Vital Signs Vital signs: Vital Signs - 8 hr 04/22/23 11:35 Temperature 98.2 F Pulse Rate 72 Respiratory Rate 18 Blood Pressure 140/76 Pulse Oximetry 98 Oxygen Delivery Method Nasal Cannula Oxygen Flow Rate 2 <Lisa Jones DO - Last Filed: 04/23/23 06:57> Orders Ordered: ED Orders 04/22/23 12:06 Urine Culture Stat Urine Microscopic Stat Vital Signs Vital signs: Vital Signs - 8 hr 04/22/23 11:35 Temperature 98.2 F Pulse Rate 72 Respiratory Rate 18 Blood Pressure 140/76 Pulse Oximetry 98 Oxygen Delivery Method Nasal Cannula Oxygen Flow Rate 2 MDM - Male Genitourinary <Jesus Green PA-C - Last Filed: 04/22/23 12:56> Lab Data Labs: Lab Results 04/22/23 Range/Units 12:06 Urine RBC 1-5/hpf (0-5/HPF) Urine WBC >100/hpf H (0-5/HPF) Ur Squamous Epith Cells 0-1 /hpf (0-5/HPF) Urine Bacteria Many (>30) H (None) Micro UA Comment Urine Dip Bedside Urine Glucose Negative Bedside Urine Bilirubin - Negative Bedside Urine Ketone - Negative Urine Specific [place] 1.010 Bedside Urine Occult Blood +++ Bedside Urine pH 6 Bedside Urine Protein - Negative Bedside Urine Urobilinogen - Negative Bedside Urine Nitrite - Negative Bedside Urine Leukocytes +++ 500 Esterase MDM Narrative Medical decision making narrative: MDM * differential diagnosis includes but not limited to acute simple cystitis, py elonephritis, gonorrhea, chlamydia * Prior records reviewed: Patient was seen a month ago due to acute pyelonephritis. Initially came in for 48 hours of dysuria urgency or frequency. Also was having shaking chills and rigors. History of AFib and COPD. Lactate within normal limits. Afebrile. Renal function at baseline. Treated with IV Rocephin and discharged home with Keflex. White blood cell count of 14.1. Patient was also seen 2 weeks ago due to a complicated UTI. Came in due to urinary frequency and dysuria for 3 days. UA showed evidence of a UTI. Patient was discharged with prescription for ciprofloxacin. * My lab interpretation: UA shows evidence of UTI * My imgaing interpretation: None obtained * Clinical Decision Rules/Scores evaluated: None * Independent discussions with: None ED Course: This is a 77-year-old male presents emergency department due to a repeat UTI symptoms. He was seen twice here in the last month as noted in the record review above. We will treat for a simple cystitis with MDR risk factors as he was previously prescribed ciprofloxacin. We will treat with Macrobid as recommended by up-to-date. Urine cultured. Recommended he follow up with his established urologist for further management due to the recurrent UTIs. No flank pain, fevers, chills, or other concerns for possible pyelonephritis. Shared Decision Making: Discussed plan with the patient who is comfortable with the plan. Social Considerations: None Disposition: Discharged to home <Lisa Jones, - Last Filed: 04/23/23 06:57> Lab Data Labs: Lab Results 04/22/23 Range/Units 12:06 Urine RBC 1-5/hpf (0-5/HPF) Urine WBC >100/hpf H (0-5/HPF) Ur Squamous Epith Cells 0-1 /hpf (0-5/HPF) Urine Bacteria Many (>30) H (None) Micro UA Comment Urine Dip Bedside Urine Glucose Negative Bedside Urine Bilirubin - Negative Bedside Urine Ketone - Negative Urine Specific [place] 1.010 Bedside Urine Occult Blood +++ Bedside Urine pH 6 Bedside Urine Protein - Negative Bedside Urine Urobilinogen - Negative Bedside Urine Nitrite - Negative Bedside Urine Leukocytes +++ 500 Esterase Discharge Plan Departure Patient Disposition: Home Clinical Impression: Urinary tract infection Instructions: DI for Urinary Tract Infection (UTI) Activity Restrictions/Additional Instructions: Thank you for coming to the [facility] Emergency Department today. Your urine does show evidence of a UTI. Please take the oral antibiotics as prescribed. I do recommend you follow up with Urology to investigate the cause of these recurrent UTIs. I hope you feel better soon. Please follow up with your primary care provider within a week if your symptoms continue. If you do not have a primary care provider please contact the [facility] Resource line at [phone]. They will ask some questions about your medical history and help you get set up with a provider in the community. Prescriptions: New nitrofurantoin monohyd/m-cryst [Macrobid] 100 mg capsule 100 mg PO Q12H 5 Days Qty: 10 0RF Rx Instructions: must administer with a meal/food No Action tamsulosin [Flomax] 0.4 MG capsule,extended release 24hr 0.4 mg PO QDAY Qty: 0 tiotropium bromide [Spiriva Respimat] 2.5 MCG/ACTUATION mist 2.5 mcg IH BID Qty: 0 levalbuterol tartrate [Xopenex HFA] 45 MCG/INH HFA aerosol inhaler 2 puff INH Q4HP PRNQty: 1 0RF apixaban [Eliquis] 5 MG tablet 5 mg PO BID Qty: 60 3RF ciprofloxacin HCl 500 mg tablet 500 mg PO Q12H Qty: 14 0RF Referrals: Annabella Barker ARNP [Primary Care Provider] - Stand Alone Forms: Patient Portal/API ED Sign-out <Lisa Jones DO - Last Filed: 04/23/23 06:57> Cosign ED Attending Josef Attestation: I was available for consultation.
[2023-04-22 12:54] LABS: RBC Urine 1-5/HPF (0-5/HPF); Squamous Epithelial Cell Urine 0-1 /HPF (0-5/HPF); WBC Urine >100/HPF (0-5/HPF)
[2023-04-22 12:55] LABS: Bacteria Urine Many (>30)
[2023-04-22 13:04] VITALS: BP 134/64; PULSE 67; RESP 16; TEMP 36.7; O2SAT 96
== END 2023-04-22 13:05 | disposition home or self-care (01) ==
PROVIDERS: Emergency Provider Physician Assistant Medical; PCP Registered Nurse
DX: N39.0 Urinary tract infection, site not specified (principal); R10.30 Lower abdominal pain, unspecified
CPT/HCPCS: 81003; 81015; 87077; 87086; 87186; 99282; 99284

== ENCOUNTER 2023-04-29 09:56 | Emergency (ER) | payer OTHER, SELFPAY ==
[2023-04-29 10:02] VITALS: BP 148/73; PULSE 84; RESP 16; TEMP 36.7; O2SAT 95; BMI 26.0
[2023-04-29 10:44] LABS: Appearance Urine UA CLOUDY; Bilirubin Urine UA NEGATIVE (NEGATIVE); Color Urine UA YELLOW; Glucose Urine UA NEGATIVE (Negative); Ketones Urine UA NEGATIVE (NEGATIVE); Leukocyte Esterase Urine UA 3+ (NEGATIVE); Nitrite Urine UA POSITIVE (Negative); Occult Blood Urine UA 2+ (Negative); Protein Urine UA 1+ (Negative); Urobilinogen Urine UA 0.2 E.U./dL (0.2)
[2023-04-29 10:49] LABS: Bacteria Urine Many (>30); Culture Indicated Urine Specimen Cultured; RBC Urine 5-10/HPF (0-5/HPF); Squamous Epithelial Cell Urine 0-1 /HPF (0-5/HPF); WBC Urine 30-100/HPF (0-5/HPF)
[2023-04-29 12:17] VITALS: BP 136/78; PULSE 86; RESP 19; O2SAT 2
--- NOTE | 2023-04-29 12:25 | ED_ITS ---
HPI - Male Genitourinary General Chief complaint: Urogenital-Male Stated complaint: UTI Time Seen by Provider: 04/29/23 10:45 Source: patient Mode of arrival: Wheelchair History of Present Illness HPI Narrative: 77-year-old male with history of atrial fibrillation, pacemaker on Eliquis with BPH who was on Flomax and finasteride until recently and is now just Flomax. Patient presents with recurrent UTI symptoms that have been going on since March. He is had several antibiotics. States he was feeling much improved with Macrobid that he completed 2 or 3 days ago and then started having recurrence of symptoms within 24 hours. Recent urine culture is positive for E coli shows sensitive to Macrobid. Patient states dysuria, urgency and sense of incomplete emptying. No retention that he appreciates. No fevers or chills. No nausea or vomiting. No abdominal back or flank pain. Denies any testicular pain or discharge. Denies any constipation. Patient states he has been in touch with his primary care, they have put in a referral to Urology. He does note that they stopped his finasteride in the last month but continues to take Flomax daily. He states he was placed on the finasteride several years ago for BPH. He has had a cystoscopy remotely. Related Data Home Medications Medication Instructions Recorded Confirmed tamsulosin 0.4 mg capsule (Flomax) 0.4 mg PO QDAY ##0 03/22/17 tiotropium bromide 2.5 2.5 mcg IH BID ##0 03/22/17 mcg/actuation mist for inhalation (Spiriva Respimat) Previous Rx's Medication Instructions Recorded apixaban 5 mg tablet (Eliquis) 5 mg PO BID #60 tabs 03/23/17 levalbuterol tartrate 45 2 puff INH Q4HP PRN #1 inh 03/23/17 mcg/actuation aerosol inhaler (Xopenex HFA) ciprofloxacin HCl 500 mg tablet 500 mg PO Q12H #14 tabs 04/08/23 nitrofurantoin 100 mg PO Q12H 14 days #28 caps 04/29/23 monohydrate/macrocrystals 100 mg capsule (Macrobid) Allergies Allergy/AdvReac Type Severity Reaction Status Date / Time No Known Allergies Allergy Verified 04/29/23 10:02 Review of Systems Review of Systems ROS Unobtainable: All systems reviewed & are unremarkable except as noted in HPI and below Patient History Medical History COPD (chronic obstructive pulmonary disease) Atrial fibrillation Social History Smoking Status: Former smoker Smoking Status: Former smoker alcohol intake frequency: holidays/special occasions only Substance Use Type: does not use Exam Narrative Exam Narrative: GENERAL: Alert and oriented x three, elderly male in mild distress. HEENT: Head normocephalic, atraumatic, EOMI, pupils reactive, face symmetric, moist mucous membranes, patient on nasal cannula with home O2 NECK: Supple, full range of motion CARDIOVASCULAR: Regular rate and rhythm without murmurs, rubs or gallops. RESPIRATORY: Breath sounds equal bilaterally, no wheezes rales or rhonchi. ABDOMEN: Soft, nontender. Normoactive bowel sounds all 4 quadrants. No guarding or rebound, rigidity, no mass : No CVA tenderness EXTREMITIES: Normal range of motion, no clubbing or edema. Neurovascularly intact NEUROLOGICAL: Cranial nerves II through XII grossly intact. Moving all extremities SKIN: Warm, dry, no petechiae, no rashes or lesions. Initial Vital Signs Initial Vital Signs: Vital Signs Temperature 98.0 F 04/29/23 10:02 Pulse Rate 84 04/29/23 10:02 Respiratory Rate 16 04/29/23 10:02 Blood Pressure 148/73 H 04/29/23 10:02 Pulse Oximetry 95 04/29/23 10:02 Oxygen Delivery Method Room Air 04/29/23 10:02 Course Orders Ordered: ED Orders 04/29/23 10:05 Urinalysis and Microscopic Stat Urine Culture Stat Vital Signs Vital signs: Vital Signs - 8 hr 04/29/23 12:17 Pulse Rate 86 Respiratory Rate 19 Blood Pressure 136/78 Pulse Oximetry 2 L Oxygen Delivery Method Nasal Cannula MDM - Male Genitourinary Lab Data Labs: Lab Results 04/29/23 Range/Units 10:05 Urine Color Yellow Urine Appearance Cloudy Urine pH 6.0 (4.5-8.0) Ur Specific [place] 1.020 (1.000-1.035) Urine Protein 1+ H (Negative) Urine Glucose (UA) Negative (Negative) g/dL Urine Ketones Negative (NEGATIVE) Urine Occult Blood 2+ H (Negative) Urine Nitrate Positive H (Negative) Urine Bilirubin Negative (NEGATIVE) Urine Urobilinogen 0.2 (0.2) E.U./dL Ur Leukocyte Esterase 3+ H (NEGATIVE) Urine RBC 5-10/hpf H (0-5/HPF) Urine WBC 30-100/hpf H (0-5/HPF) Ur Squamous Epith Cells 0-1 /hpf (0-5/HPF) Urine Bacteria Many (>30) H (None) Ur Culture Indicated? Specimen cultured MDM Narrative Medical decision making narrative: 77-year-old male who presents with complaint of dysuria, urgency and frequency UTI symptoms. Completed Macrobid which he states significantly improved his symptoms and after completing it within 2 days developed symptoms again. Urine culture does show sensitivity to Macrobid was E coli greater than 100,000 CFU with haji sensitivity. Patient is on Eliquis so this does limit some of his antibiotic choices. Discussed possibility of prostatitis versus incomplete course of antibiotic. We will give longer course of Macrobid but discussed with patient if this does not resolve his symptoms he will need alternative regimen and possibly treatment more for a prostatitis. Referral for urology was given. He has been in touch with his primary care physician and they are [facility]. Discharge Plan Departure Patient Disposition: Home Clinical Impression: Urinary tract infection Instructions: DI for Urinary Tract Infection (UTI) Activity Restrictions/Additional Instructions: Your last urine culture shows sensitivity to your recent antibiotic but there is a possibility of prostatitis as well. Take antibiotics until completed. This is a longer course of antibiotic. Prescription was sent to [facility] in [place]. If you continued to have persistent symptoms I do recommend following up with Urology for further workup and evaluation for prostatitis. Please return for fevers, new or worsening abdominal back or flank pain, inability to urinate or other new or concerning changes. Prescriptions: New nitrofurantoin monohyd/m-cryst [Macrobid] 100 mg capsule 100 mg PO Q12H 14 Days Qty: 28 0RF Rx Instructions: must administer with a meal/food No Action tamsulosin [Flomax] 0.4 MG capsule,extended release 24hr 0.4 mg PO QDAY Qty: 0 tiotropium bromide [Spiriva Respimat] 2.5 MCG/ACTUATION mist 2.5 mcg IH BID Qty: 0 levalbuterol tartrate [Xopenex HFA] 45 MCG/INH HFA aerosol inhaler 2 puff INH Q4HP PRNQty: 1 0RF apixaban [Eliquis] 5 MG tablet 5 mg PO BID Qty: 60 3RF ciprofloxacin HCl 500 mg tablet 500 mg PO Q12H Qty: 14 0RF Referrals: Annabella Barker ARNP [Primary Care Provider] - Alejandro Neville MD [Physician] - Stand Alone Forms: Patient Portal/API
== END 2023-04-29 12:58 | disposition home or self-care (01) ==
PROVIDERS: Emergency Provider Emergency Medicine; PCP Registered Nurse
DX: N39.0 Urinary tract infection, site not specified (principal)
CPT/HCPCS: 81001; 87077; 87086; 87186; 99282; 99284

== ENCOUNTER 2023-05-14 15:14 | Emergency (ER) | payer OTHER, SELFPAY ==
[2023-05-14 15:18] VITALS: BP 154/75; PULSE 78; RESP 24; TEMP 36.4; O2SAT 94; BMI 26.3
[2023-05-14 15:42] VITALS: BP 133/72; PULSE 71; O2SAT 97
[2023-05-14 15:54] LABS: Bilirubin Urine UA 1+ (NEGATIVE); Glucose Urine UA NEGATIVE (Negative); Ketones Urine UA NEGATIVE (NEGATIVE); Leukocyte Esterase Urine UA 2+ (NEGATIVE); Nitrite Urine UA POSITIVE (Negative); Occult Blood Urine UA 3+ (Negative); Protein Urine UA 3+ (Negative); Specific Gravity Urine UA >=1.030 (1.000-1.035)
[2023-05-14 15:55] LABS: Appearance Urine UA TURBID; Color Urine UA BROWN
[2023-05-14 15:56] VITALS: BP 134/73; PULSE 86; O2SAT 92
[2023-05-14 16:00] VITALS: BP 144/75; PULSE 71; O2SAT 96
[2023-05-14 16:03] LABS: Bacteria Urine Many (>30); Culture Indicated Urine Specimen Cultured; RBC Urine >100/HPF (0-5/HPF); Squamous Epithelial Cell Urine 0-1 /HPF (0-5/HPF); WBC Urine >100/HPF (0-5/HPF)
--- NOTE | 2023-05-14 16:19 | ED_ITS ---
HPI - General Adult General Chief complaint: Urogenital-Male Stated complaint: UTI is back Time Seen by Provider: 05/14/23 15:32 Source: patient and family Mode of arrival: Wheelchair History of Present Illness HPI narrative: Patient is a 77-year-old male. Over the past several months he has had multiple recurrent urinary tract infections. He has been seen here in the emergency department for each of these. He has been on Cipro, Keflex and on 2 separate courses of Macrobid. The 1st 1 was 5 days. The 2nd 1 was 14 days. He states he just completed the 14 day course of Macrobid on Tuesday. He states that he is now having urinary symptoms again to include frequency and urgency and hesitancy. No vomiting. No back pain. No fevers. No abdominal tenderness. He states that when he takes the antibiotics his symptoms seemed to greatly improve and resolve. He urinates normally. It is just when he stops taking the antibiotics his symptoms returned. He does have a follow-up with Urology scheduled in approximately 1 month from now. Related Data Home Medications Medication Instructions Recorded Confirmed tamsulosin 0.4 mg capsule (Flomax) 0.4 mg PO QDAY ##0 03/22/17 tiotropium bromide 2.5 2.5 mcg IH BID ##0 03/22/17 mcg/actuation mist for inhalation (Spiriva Respimat) Previous Rx's Medication Instructions Recorded apixaban 5 mg tablet (Eliquis) 5 mg PO BID #60 tabs 03/23/17 levalbuterol tartrate 45 2 puff INH Q4HP PRN #1 inh 03/23/17 mcg/actuation aerosol inhaler (Xopenex HFA) ciprofloxacin HCl 500 mg tablet 500 mg PO Q12H #14 tabs 04/08/23 nitrofurantoin 100 mg PO BID #60 caps 05/14/23 monohydrate/macrocrystals 100 mg capsule (Macrobid) Allergies Allergy/AdvReac Type Severity Reaction Status Date / Time No Known Allergies Allergy Verified 04/29/23 10:02 Review of Systems Review of Systems ROS Unobtainable: All systems reviewed & are unremarkable except as noted in HPI and below Constitutional Constitutional: Reports system reviewed and no additional complaints, except as documented Gastrointestinal Gastrointestinal: Reports system reviewed and no additional complaints, except as documented Genitourinary Genitourinary: Reports system reviewed and no additional complaints, except as documented Musculoskeletal Musculoskeletal: Reports system reviewed and no additional complaints, except as documented Integumentary/Breasts Skin/Breast: Reports system reviewed and no additional complaints, except as documented Patient History Medical History COPD (chronic obstructive pulmonary disease) Atrial fibrillation Social History Smoking Status: Former smoker Smoking Status: Former smoker alcohol intake frequency: holidays/special occasions only Substance Use Type: does not use Exam Initial Vital Signs Initial Vital Signs: Vital Signs Temperature 97.5 F L 05/14/23 15:18 Pulse Rate 78 05/14/23 15:18 Respiratory Rate 24 05/14/23 15:18 Blood Pressure 154/75 H 05/14/23 15:18 Pulse Oximetry 94 05/14/23 15:18 Oxygen Delivery Method Nasal Cannula 05/14/23 15:18 Oxygen Flow Rate 2 05/14/23 15:18 Const General: cooperative, comfortable and No ill appearing HENWI Head: normal to inspection Resp Effort & Inspection: normal respiratory effort GI Inspection: normal to inspection and non-distended Palpation: soft and No tender Neuro General: patient alert and patient awake Course Orders Ordered: ED Orders 05/14/23 15:34 Ictotest Urine Stat Urinalysis and Microscopic Stat Urine Culture Stat 05/14/23 15:50 EKG-12 Lead Routine Vital Signs Vital signs: Vital Signs - 8 hr 05/14/23 15:18 05/14/23 15:42 05/14/23 15:42 Temperature 97.5 F L Pulse Rate 78 71 Respiratory Rate 24 Blood Pressure 154/75 H 133/72 Pulse Oximetry 94 97 Oxygen Delivery Method Nasal Cannula Nasal Cannula Oxygen Flow Rate 2 2 05/14/23 15:56 05/14/23 15:56 05/14/23 16:00 Temperature Pulse Rate 86 Respiratory Rate Blood Pressure 134/73 144/75 H Pulse Oximetry 92 Oxygen Delivery Method Oxygen Flow Rate 05/14/23 16:00 Temperature Pulse Rate 71 Respiratory Rate Blood Pressure Pulse Oximetry 96 Oxygen Delivery Method Nasal Cannula Oxygen Flow Rate 2 Medical Decision Making Medical Records Medical records reviewed: Yes I reviewed the patient's medical records. Lab Data Lab results reviewed: Yes I reviewed the patient's lab results. Labs: Lab Results 05/14/23 Range/Units 15:34 Urine Color Brown Urine Appearance Turbid Urine pH 5.0 (4.5-8.0) Ur Specific [place] >=1.030 H (1.000-1.035) Urine Protein 3+ H (Negative) Urine Glucose (UA) Negative (Negative) g/dL Urine Ketones Negative (NEGATIVE) Urine Occult Blood 3+ H (Negative) Urine Nitrate Positive H (Negative) Urine Bilirubin 1+ H (NEGATIVE) Ur Bilirubin Confirm TNP Urine Urobilinogen 1.0 (0.2) E.U./dL Ur Leukocyte Esterase 2+ H (NEGATIVE) Urine RBC >100/hpf H (0-5/HPF) Urine WBC >100/hpf H (0-5/HPF) Ur Squamous Epith Cells 0-1 /hpf (0-5/HPF) Urine Bacteria Many (>30) H (None) Ur Culture Indicated? Specimen cultured Urine Dip Bedside Urine Glucose Negative Bedside Urine Bilirubin - Negative Bedside Urine Ketone - Negative Urine Specific [place] 1.030 Bedside Urine Occult Blood ++ Bedside Urine pH 5.5 Bedside Urine Protein +++ 300 Bedside Urine Urobilinogen - Negative Bedside Urine Nitrite + Positive Bedside Urine Leukocytes +++ 500 Esterase Point of care testing: Urine Dip Bedside Urine Glucose Negative Bedside Urine Bilirubin - Negative Bedside Urine Ketone - Negative Urine Specific [place] 1.030 Bedside Urine Occult Blood ++ Bedside Urine pH 5.5 Bedside Urine Protein +++ 300 Bedside Urine Urobilinogen - Negative Bedside Urine Nitrite + Positive Bedside Urine Leukocytes +++ 500 Esterase MDM Narrative Medical decision making narrative: Urinalysis today and his symptoms are consistent with a UTI. Review of his medical record shows that each time that he has been here in the emergency department he has had a pansensitive E coli that has grown greater than 100,000 colony-forming units. It appears that each time he takes the antibiotics his symptoms greatly improve or even resolve and then return once he quit taking the antibiotics. I suspect that his symptoms are being treated with the choice of antibiotics that he has been taking secondary to the cultures that we are getting benign of high concern that he has an issue such as a fistula that is continuously causing bacteria to enter his bladder. He has no indication today that he is pyelonephritis. He is well-appearing. Afebrile. Tolerating oral antibiotics. We discussed options to include trying a 4th class of medicines such as Bactrim. Discussed that this is most likely going to make his symptoms better but there was a chance that they would return again. We also discussed that we can put him on Macrobid on a daily basis until he sees the urologist in 1 month from now. After the discussion the patient opted to go back on the Macrobid. He will take it 2 times a day for the next 5 days. After that he will try to take it 1 time a day. If he starts to have symptoms again when he reduces the dose he will go back to twice a day until he sees Urology. He was given return precautions. He expressed understanding and agreement. Discharge Plan Departure Patient Disposition: Home Clinical Impression: Urinary tract infection Instructions: DI for Urinary Tract Infection (UTI) Activity Restrictions/Additional Instructions: I recommend that for the next 5 days you take the Macrobid/nitrofurantoin 2 times a day. After that I recommend you drop down to 1 time a day. If you start to get the urinary symptoms again go back up to twice. Keep doing this into you see your urologist like we discussed. Prescriptions: New nitrofurantoin monohyd/m-cryst [Macrobid] 100 mg capsule 100 mg PO BID Qty: 60 0RF Rx Instructions: must administer with a meal/food No Action tamsulosin [Flomax] 0.4 MG capsule,extended release 24hr 0.4 mg PO QDAY Qty: 0 tiotropium bromide [Spiriva Respimat] 2.5 MCG/ACTUATION mist 2.5 mcg IH BID Qty: 0 levalbuterol tartrate [Xopenex HFA] 45 MCG/INH HFA aerosol inhaler 2 puff INH Q4HP PRNQty: 1 0RF apixaban [Eliquis] 5 MG tablet 5 mg PO BID Qty: 60 3RF ciprofloxacin HCl 500 mg tablet 500 mg PO Q12H Qty: 14 0RF Referrals: Annabella Barker ARNP [Primary Care Provider] - Stand Alone Forms: Patient Portal/API
== END 2023-05-14 16:29 | disposition home or self-care (01) ==
PROVIDERS: Emergency Provider Emergency Medicine; PCP Registered Nurse
DX: N39.0 Urinary tract infection, site not specified (principal); R03.0 Elevated blood-pressure reading, without diagnosis of hypertension
CPT/HCPCS: 51798; 81001; 81003; 87077; 87086; 87186; 93005; 99284

== ENCOUNTER → 2024-02-08 12:54 | Outpatient (CLI) | payer OTHER, SELFPAY ==
[2024-02-08 14:48] LABS: Erythrocyte Sedimentation Rate 5 MM/HR (0-15)
[2024-02-08 22:01] LABS: C-Reactive Protein Quant < 0.5 mg/dL (<1.0)
== END ==
LOC: LAB 12:55
PROVIDERS: PCP Registered Nurse; Referring Provider Ophthalmology; Visit Provider Ophthalmology
DX: R51.9 Headache, unspecified (principal)
CPT/HCPCS: 36415; 85651; 86140

== ENCOUNTER → 2024-03-16 13:45 | Outpatient (CLI) | payer OTHER, SELFPAY ==
[2024-03-16 14:26] LABS: Hematocrit 40.2 % (41-53); Hemoglobin 13.6 g/dL (13.5-17.5); Mean Corpuscular HGB Conc 33.8 % (30-36); Mean Corpuscular Hemoglobin 32.4 PG (26-34); Mean Corpuscular Volume 95.7 fL (80-100); Platelet Count 238 X10^3/uL (150-400); Red Cell Distribution Width 14.1 % (11.6-14.8); White Blood Cell Count 6.8 X10^3/uL (4.5-11.0)
[2024-03-16 15:11] LABS: BUN Creatinine Ratio 14.6 (6-22); Blood Urea Nitrogen 13 mg/dL (9-20); Calcium 9.2 mg/dL (8.4-10.2); Carbon Dioxide 27 mmol/L (22-32); Chloride 101 mmol/L (98-107); Cholesterol 136 mg/dL (140-199); Estimated Glomerular Filt Rate > 60 mL/min (>60); Glucose 93 mg/dL (80-110); HDL Cholesterol 49 mg/dL (40-60); HEMOLYSIS < 15 (0-50); LDL Cholesterol Calculated 44 mg/dL (<100); Potassium 4.2 mmol/L (3.4-5.1); Sodium 135 mmol/L (137-145); Triglycerides 213 mg/dL (35-150)
== END ==
PROVIDERS: PCP Registered Nurse; Referring Provider Internal Medicine Cardiovascular Disease; Visit Provider Internal Medicine Cardiovascular Disease
DX: E78.5 Hyperlipidemia, unspecified (principal); I42.9 Cardiomyopathy, unspecified
CPT/HCPCS: 36415; 80048; 80061; 85027

== ENCOUNTER → 2024-09-24 08:03 | Outpatient (CLI) | payer OTHER, SELFPAY | LOC: RESP 08:05 | PROVIDERS: PCP Registered Nurse | DX: J44.9 Chronic obstructive pulmonary disease, unspecified (principal); Z87.891 Personal history of nicotine dependence; R94.2 Abnormal results of pulmonary function studies | CPT/HCPCS: 94060; 94726; 94729 ==

== ENCOUNTER 2024-11-18 18:30 | Emergency (ER) | payer OTHER, SELFPAY ==
[2024-11-18] VITALS (9 sets, daily range): BP systolic 116–133; BP diastolic 61–72; PULSE 64–70; RESP 16–24; TEMP 36.6; O2SAT 96–99; BMI 25.7
--- NOTE | 2024-11-18 18:45 | DI.RAD.S_ITS ---
PROCEDURE: XR CHEST 1V INDICATIONS: Shortness of breath TECHNIQUE: One view of the chest was acquired. COMPARISON: [facility], CR, XR CHEST 2V, 09/26/2022, 7:18. FINDINGS: Surgical changes and devices: Three lead left-sided transvenous pacemaker. Lungs and pleura: Hyperinflated, hyperlucent. No focal consolidation, effusion, or pneumothorax. Mediastinum: Normal size heart. Central arteries. Normal central venous structures and aorta. Bones and chest wall: No suspicious bony lesions. Overlying soft tissues appear unremarkable. IMPRESSION: Findings emphysema/COPD. No acute cardiopulmonary disease. Dictated by: Rossana Quinn M.D. on 11/18/2024 at 19:49 Approved by: Rossana Quinn M.D. on 11/18/2024 at 19:50
--- NOTE | 2024-11-18 18:51 | EKG_ITS ---
[address] [address] [place] [address] Test Date: 2024-11-18 Pat Name: Nadeem Sewell Department: [facility] Room: Gender: Male [employer]: : 1945 Requested By: Order Number: [id number] Reading MD: Marlo Sheppard Measurements Intervals [place] Rate: 66 P: 82 MO: 194 QRS: 106 QRSD: 82 T: 49 QT: 372 QTc: 389 Interpretive Statements Atrial-sensed ventricular-paced rhythm with frequent AV dual-paced complexes Biventricular pacemaker detected Electronically Signed On 11-21-2024 13:41:43 PDT by Marlo Sheppard
--- NOTE | 2024-11-18 18:53 | ED.SOB ---
HPI - SOB/Dyspnea General Chief Complaint: Shortness of Breath/Dyspnea Stated Complaint: SoB, COPD Time Seen by Provider: 11/18/24 18:34 History of Present Illness HPI Narrative: 79-year-old gentleman history atrial fibrillation, pacemaker on Eliquis, BPH, history of COPD on 2 L nasal cannula as needed currently in pulmonary rehab, presents with shortness of breath dyspnea on exertion today despite turning up his O2 to 3 to 4 L 02 NC without any significant relief of symptoms called EMS prior to arrival. Patient denies fever chills body aches nausea vomiting diarrhea worsening leg pain or swelling, active chest pain. Other than what is stated 14 point review of system is negative. Related Data Home Medications ?Medication ?Instructions ?Recorded ?Confirmed tamsulosin 0.4 mg capsule (Flomax) 0.4 mg PO QDAY ##0 03/22/17 tiotropium bromide 2.5 2.5 mcg IH BID ##0 03/22/17 mcg/actuation mist for inhalation (Spiriva Respimat) Previous Rx's ?Medication ?Instructions ?Recorded apixaban 5 mg tablet (Eliquis) 5 mg PO BID #60 tabs 03/23/17 levalbuterol tartrate 45 2 puff INH Q4HP PRN #1 inh 03/23/17 mcg/actuation aerosol inhaler (Xopenex HFA) ciprofloxacin HCl 500 mg tablet 500 mg PO Q12H #14 tabs 04/08/23 nitrofurantoin 100 mg PO BID #60 caps 05/14/23 monohydrate/macrocrystals 100 mg capsule (Macrobid) doxycycline hyclate 100 mg capsule 100 mg PO BID #10 caps 11/18/24 prednisone 20 mg tablet 20 mg PO BID #10 tabs 11/18/24 Allergies Allergy/AdvReac Type Severity Reaction Status Date / Time No Known Allergies Allergy Verified 11/18/24 19:01 Review of Systems Review of Systems ROS Unobtainable: All systems reviewed & are unremarkable except as noted in HPI and below Patient History Medical History COPD (chronic obstructive pulmonary disease) Atrial fibrillation alcohol intake frequency: holidays/special occasions only Exam Narrative Exam Narrative: GENERAL: [79] year old patient appears stated age. Well-developed patient, in mild distress. HEAD: Atraumatic. Normocephalic. EYES: Pupils equal round and reactive. Extraocular motions intact. No scleral icterus. No injection or drainage. ENT: Nose without bleeding, purulent drainage. Throat without erythema, tonsillar hypertrophy or exudate. Airway patent. NECK: Trachea midline. Non tender CARDIOVASCULAR: Regular rate and rhythm without murmurs, gallops, or rubs. RESPIRATORY: Decreased breath sounds wheezes at the base GASTROINTESTINAL: Abdomen soft, non-tender, nondistended. EXTREMITIES: No edema or joint tenderness. BACK: Nontender without deformity or crepitance. No flank tenderness. NEURO: AOx3. SKIN: No rash or erythema of visible areas Initial Vital Signs Initial Vital Signs: Vital Signs Temperature 97.9 F 11/18/24 18:40 Pulse Rate 70 11/18/24 18:40 Respiratory Rate 20 11/18/24 18:40 Blood Pressure 119/72 11/18/24 18:40 Pulse Oximetry 98 11/18/24 18:40 Oxygen Delivery Method Nasal Cannula 11/18/24 18:40 Oxygen Flow Rate 3 11/18/24 18:40 Course Orders Ordered: ED Orders 11/18/24 18:45 XR chest 1V Stat EKG-12 Lead Stat Measure peak expiratory flow STAT RT Consult Eval and Treat STAT 11/18/24 18:50 Complete Blood Count AUTO DIFF Stat Comprehensive Metabolic Panel Stat Lactate (Lactic Acid) Stat NT-proBNP (BNP-Adult 18+) Stat Prothrombin Time INR Stat Troponin I Stat 11/18/24 19:51 EKG-12 Lead Stat 11/18/24 19:59 Venous Blood Gas STAT 11/18/24 20:10 Venous Blood Gas Routine 11/18/24 21:14 Trop I [Troponin I] Stat Discontinued Medications Albuterol/Ipratropium (Albuterol/Ipratropium 3 Ml Ampul) 3 ml INH NOW ONE Stop: 11/18/24 19:52 Last Admin: 11/18/24 20:00 Dose: 3 ml Documented By: PATIENCE Albuterol/Ipratropium (Albuterol/Ipratropium 3 Ml Ampul) 3 ml INH NOW ONE Stop: 11/18/24 20:18 Last Admin: 11/18/24 20:21 Dose: 3 ml Documented By: PATIENCE Methylprednisolone (Methylprednisolone 125 Mg/2 Ml Vial) 125 mg IV NOW ONE Stop: 11/18/24 19:51 Last Admin: 11/18/24 20:05 Dose: 125 mg Documented By: ARNOL Vital Signs Vital signs: Vital Signs - 8 hr 11/18/24 18:40 11/18/24 19:47 11/18/24 19:49 Temperature 97.9 F Pulse Rate 70 65 65 Respiratory Rate 20 24 Blood Pressure 119/72 Pulse Oximetry 98 97 97 Oxygen Delivery Method Nasal Cannula Oxygen Flow Rate 3 Fraction of Inspired Oxygen 11/18/24 19:49 11/18/24 20:00 11/18/24 20:00 Temperature Pulse Rate 64 Respiratory Rate 16 Blood Pressure 129/68 116/66 Pulse Oximetry 97 Oxygen Delivery Method Oxygen Flow Rate Fraction of Inspired Oxygen 11/18/24 20:03 11/18/24 20:24 11/18/24 20:30 Temperature Pulse Rate 64 64 Respiratory Rate 18 18 Blood Pressure 117/64 Pulse Oximetry 98 98 Oxygen Delivery Method Nasal Cannula Nasal Cannula Oxygen Flow Rate 2 3 Fraction of Inspired Oxygen 28 32 11/18/24 20:30 11/18/24 21:00 11/18/24 21:00 Temperature Pulse Rate 64 64 Respiratory Rate 16 20 Blood Pressure 117/65 Pulse Oximetry 99 96 Oxygen Delivery Method Oxygen Flow Rate Fraction of Inspired Oxygen 11/18/24 21:30 11/18/24 21:30 Temperature Pulse Rate 66 Respiratory Rate 23 Blood Pressure 133/61 Pulse Oximetry 96 Oxygen Delivery Method Oxygen Flow Rate Fraction of Inspired Oxygen MDM - SOB/Dyspnea Lab Data 11/18/24 18:50 11/18/24 18:50 Labs: Lab Results 11/18/24 11/18/24 11/18/24 Range/Units 18:50 20:10 21:14 WBC 7.6 (4.5-11.0) X10^3/uL RBC 4.09 L (4.5-5.9) X10^6/uL Hgb 13.3 L (13.5-17.5) g/dL Hct 38.9 L (41-53) % MCV 95.1 (80-100) fL MCH 32.5 (26-34) PG MCHC 34.1 (30-36) % RDW 14.2 (11.6-14.8) % Plt Count 240 (150-400) X10^3/uL Neut % (Auto) 68.2 (50-75) % Lymph % (Auto) 14.8 L (25-40) % [place] % (Auto) 9.7 (3-14) % Eos % (Auto) 6.5 H (2-4) % Baso % (Auto) 0.8 (0-2) % Neut # (Auto) 5200 (1644-5892) /uL Lymph # (Auto) 1100 (1111-1513) /uL [place] # (Auto) 700 (0-900) /uL Eos # (Auto) 500 H (0-450) /uL Baso # (Auto) 100 (0-100) /uL PT 17.7 H (9.4-12.5) SECONDS INR 1.6 H (0.9-1.3) VBG pH 7.41 (7.33-7.43) VBG pCO2 41.4 L (45-50) mmHg VBG pO2 35 (35-45) mmHg VBG HCO3 26 (24-28) mmol/L VBG Total CO2 25 (24-29) mmol/L VBG O2 Saturation 68 L (70-75) % VBG Base Excess 1.4 (0-4) mmol/L FiO2 % 32.0 % % Sodium 133 L (137-145) mmol/L Potassium 4.7 (3.4-5.1) mmol/L Chloride 99 (98-107) mmol/L Carbon Dioxide 27 (22-32) mmol/L BUN 21 H (9-20) mg/dL Creatinine 0.91 (0.66-1.25) mg/dL Estimated GFR > 60 (>60) mL/min BUN/Creatinine Ratio 23.1 H (6-22) Glucose 111 H (70-99) mg/dL Lactate 0.6 L (0.7-2.1) mmol/L Calcium 9.0 (8.4-10.2) mg/dL Total Bilirubin 0.5 (0.2-1.3) mg/dL AST 27 (17-59) IU/L ALT 14 (<50) IU/L Alkaline Phosphatase 48 (38-126) U/L Troponin I < 0.012 < 0.012 (0.01-0.034) ng/mL NT-Pro-B Natriuret Pep 141 (<450) pg/mL Total Protein 6.8 (6.3-8.2) g/dL Albumin 4.1 (3.5-5.0) g/dL Globulin 2.7 (1.7-4.1) g/dL Albumin/Globulin Ratio 1.5 (1.0-2.8) ECG Data Interpretation: A-paced HR 66 AR 194 QRS [address]-t wave change Unchanged from 05/14/23 MDM Narrative Medical decision making narrative: Vital signs, nurse triage note, medication list, previous ER visit, and all imaging study reviewed. Patient had 2 DuoNeb treatments, Solu-Medrol 125 mg IV. 02 sat 98% 3L 02 NC. Chest x-ray showed COPD emphysema otherwise no other acute cardiopulmonary process. Differential diagnosis COPD pneumonia CHF NSTEMI STEMI. DC home on doxycycline and prednisone. Discharge Plan Departure Patient Disposition: Home Clinical Impression: Acute exacerbation of chronic obstructive pulmonary disease Instructions: DI for Chronic Obstructive Pulmonary Disease Activity Restrictions/Additional Instructions: Return with new or worsening symptoms. Take your medicines as directed. Follow up PCP 1-2 weeks if no improvement in symptoms. Prescriptions: New prednisone 20 mg tablet 20 mg PO BID Qty: 10 0RF doxycycline hyclate 100 mg capsule 100 mg PO BID Qty: 10 0RF No Action tamsulosin [Flomax] 0.4 MG capsule,extended release 24hr 0.4 mg PO QDAY Qty: 0 tiotropium bromide [Spiriva Respimat] 2.5 MCG/ACTUATION mist 2.5 mcg IH BID Qty: 0 levalbuterol tartrate [Xopenex HFA] 45 MCG/INH HFA aerosol inhaler 2 puff INH Q4HP PRNQty: 1 0RF apixaban [Eliquis] 5 MG tablet 5 mg PO BID Qty: 60 3RF ciprofloxacin HCl 500 mg tablet 500 mg PO Q12H Qty: 14 0RF nitrofurantoin monohyd/m-cryst [Macrobid] 100 mg capsule 100 mg PO BID Qty: 60 0RF Rx Instructions: must administer with a meal/food Referrals: Annabella Barker ARNP [Primary Care Provider, Family Practice] Stand Alone Forms: Patient Portal/API
[2024-11-18 19:03] LABS: Add Manual Diff / Slide Review NO; Hematocrit 38.9 % (41-53); Hemoglobin 13.3 g/dL (13.5-17.5); Lymphocytes Absolute Auto 1100 /uL (1100-4500); Mean Corpuscular HGB Conc 34.1 % (30-36); Mean Corpuscular Hemoglobin 32.5 PG (26-34); Mean Corpuscular Volume 95.1 fL (80-100); Platelet Count 240 X10^3/uL (150-400)
[2024-11-18 19:07] LABS: INR 1.6 (0.9-1.3); Prothrombin Time 17.7 SECONDS (9.4-12.5)
[2024-11-18 19:09] LABS: Lactate (Lactic Acid) 0.6 mmol/L (0.7-2.1)
[2024-11-18 19:10] LABS: Alanine Aminotransferase 14 IU/L (<50); Albumin 4.1 g/dL (3.5-5.0); Albumin Globulin Ratio 1.5 (1.0-2.8); Alkaline Phosphatase 48 U/L (38-126); Blood Urea Nitrogen 21 mg/dL (9-20); Calcium 9.0 mg/dL (8.4-10.2); Carbon Dioxide 27 mmol/L (22-32); Chloride 99 mmol/L (98-107); Estimated Glomerular Filt Rate > 60 mL/min (>60); Globulin 2.7 g/dL (1.7-4.1); Glucose 111 mg/dL (70-99); HEMOLYSIS < 15 (0-50); Potassium 4.7 mmol/L (3.4-5.1); Sodium 133 mmol/L (137-145); Total Protein 6.8 g/dL (6.3-8.2)
[2024-11-18 19:21] LABS: NT-proBNP (BNP-Adult 18+) 141 pg/mL (<450); Troponin I < 0.012 ng/mL (0.01-0.034)
[2024-11-18] MEDS: ALBUTEROL/IPRATROPIUM 3 ML AMPUL INH ×2 (20:00→20:21)
[2024-11-18 20:13] LABS: Base Excess VBG 1.4 mmol/L (0-4); HCO3 VBG 26 mmol/L (24-28); Oxygen Saturation VBG 68 % (70-75); PCO2 VBG 41.4 mmHg (45-50); PO2 VBG 35 mmHg (35-45); Total CO2 VBG 25 mmol/L (24-29); pH VBG 7.41 (7.33-7.43)
[2024-11-18 21:50] LABS: Troponin I < 0.012 ng/mL (0.01-0.034)
[2024-11-18] MEDS: DOXYCYCLINE HYCLATE 100 MG TABLET PO (22:09)
== END 2024-11-18 22:18 | disposition home or self-care (01) ==
PROVIDERS: Emergency Provider Family Medicine; PCP Registered Nurse
DX: J44.1 Chronic obstructive pulmonary disease with (acute) exacerbation (principal); I48.91 Unspecified atrial fibrillation; Z99.81 Dependence on supplemental oxygen; Z79.01 Long term (current) use of anticoagulants; Z95.0 Presence of cardiac pacemaker
CPT/HCPCS: 36415; 71045; 80053; 82805; 83605; 83880; 84484; 85025; 85610; 93005; 94640; 96374; 99285; J2919

== ENCOUNTER 2025-01-13 19:23 | Emergency (ER) | payer OTHER, SELFPAY ==
[2025-01-13] VITALS (11 sets, daily range): BP systolic 121–165; BP diastolic 69–79; PULSE 64–72; RESP 14–24; TEMP 36.4; O2SAT 93–97; BMI 25.7
--- NOTE | 2025-01-13 19:31 | EKG_ITS ---
[address] [address] Test Date: 2025-01-13 Pat Name: Nadeem Sewell Department: Room: Gender: Male Cook Jelly: NANDA : 1945 Requested By: Order Number: [id number] Reading MD: Marlo Sheppard Measurements Intervals [place] Rate: 69 P: 81 [place]: 150 QRS: 130 QRSD: 126 T: 71 QT: 410 QTc: 439 Interpretive Statements Atrial-sensed ventricular-paced rhythm Biventricular pacemaker detected Electronically Signed On 01-14-2025 13:50:45 PDT by Marlo Sheppard
--- NOTE | 2025-01-13 20:18 | ED.SOB ---
HPI - SOB/Dyspnea General Chief Complaint: Shortness of Breath/Dyspnea Stated Complaint: copd, sob , chest pain Time Seen by Provider: 01/13/25 20:18 Source: patient Mode of arrival: Wheelchair Limitations: no limitations History of Present Illness HPI Narrative: Patient is a 79-year-old male with a past medical history of COPD chronically on 2 L nasal cannula, AFib on Eliquis, hypertension, hyperlipidemia with a pacemaker comes into the ED from home for evaluation of increased shortness of breath, patient states that he has been having feelings of worsening shortness of breath with exertion, he states that this has been ongoing persistent and worsening over the past several weeks, he states that when he does feel short of breath he does have his pulse ox and it is normal. However he states that he does increase the oxygen up to 5 L for comfort, he states that if he is able to calm himself down and sit down he is able to go back to his baseline. He states that he did mention this to his maintenance mechanic technician previously states that they wanted to just watch and wait given his anxiety, however according to the patient this is increasing. At time of evaluation he is not having any worsening shortness of breath not requiring any increase in his supplemental oxygen. He denies any chest pain fever chills nausea vomiting abdominal pain or any other GI/ symptoms at this time.. Related Data Home Medications ?Medication ?Instructions ?Recorded ?Confirmed tamsulosin 0.4 mg capsule (Flomax) 0.4 mg PO QDAY ##0 03/22/17 01/02/25 tiotropium bromide 2.5 2.5 mcg IH BID ##0 03/22/17 01/02/25 mcg/actuation mist for inhalation (Spiriva Respimat) levalbuterol tartrate 45 2 puff INH Q4HP 01/02/25 01/02/25 mcg/actuation aerosol inhaler (Xopenex HFA) Previous Rx's ?Medication ?Instructions ?Recorded apixaban 5 mg tablet (Eliquis) 5 mg PO BID #60 tabs 03/23/17 hydroxyzine HCl 25 mg tablet 25 mg PO BID PRN anxiety 1 week 01/13/25 #14 tabs Allergies Allergy/AdvReac Type Severity Reaction Status Date / Time No Known Allergies Allergy Verified 01/13/25 19:28 Review of Systems Review of Systems Narrative: General: Denies fever, chills, weight loss HEENT: Denies headache, eye drainage, eye irritation, head trauma, sore throat, voice change Cardiovascular: Denies any chest pain, palpitations, tachycardia Respiratory: Positive shortness of breath, denies cough, wheeze, stridor GI/: Denies any abdominal pain, nausea, vomiting, diarrhea, bright red blood per rectum, melanotic stools, urinary frequency, urinary retention, dysuria, hematuria MSK: Denies any joint pain, muscle pains, swelling Skin: Denies any rashes, lesions, discoloration Neuro: Denies any headache, lightheadedness, dizziness, fainting, weakness Psych: Positive anxiety Denies SI/HI Patient History Medical History COPD (chronic obstructive pulmonary disease) Atrial fibrillation Smoking Status: Former smoker alcohol intake frequency: holidays/special occasions only Exam Narrative Exam Narrative: General: Cooperative, well-developed, not in acute distress HEENT: Normocephalic, atraumatic, PERRLA, normal sclera, eyelids normal Neck: Active full range of motion, atraumatic Chest: Normal to inspection, negative crepitus, no overlying erythema ecchymosis Respiratory: Patient on his baseline 2 L nasal cannula, Normal respiratory effort, not in acute respiratory distress, clear to auscultation bilaterally negative cough, wheeze, tachypnea, rhonchi, rales Cardiology: Regular rate rhythm negative gallop, murmur, rubs GI/: No tenderness to palpation, soft, non rigid, normal to inspection, exam deferred MSK: Full active range of motion in all 4 extremities, atraumatic, no tenderness to palpation of any bony prominences Skin: No rashes or lesions noted Neuro: Alert awake oriented x3, moves all 4 extremities spontaneously, cranial nerves intact, able to answer all questions appropriately follows commands appropriately Psych: Cooperative, negative suicidal or homicidal ideations Initial Vital Signs Initial Vital Signs: Vital Signs Temperature 97.6 F 01/13/25 19:28 Pulse Rate 67 01/13/25 19:28 Respiratory Rate 24 01/13/25 19:28 Blood Pressure 145/78 H 01/13/25 19:28 Pulse Oximetry 97 01/13/25 19:28 Oxygen Delivery Method Nasal Cannula 01/13/25 19:28 Oxygen Flow Rate 5 01/13/25 19:28 Course Orders Ordered: ED Orders 01/13/25 19:27 EKG-12 Lead Stat 01/13/25 19:47 Complete Blood Count AUTO DIFF Stat Comprehensive Metabolic Panel Stat Lactate (Lactic Acid) Stat Lipase Stat MAG [Magnesium] Stat NT-proBNP (BNP-Adult 18+) Stat PTT Partial Thromboplastin Jak Stat Prothrombin Time INR Stat Troponin I Stat 01/13/25 20:33 XR chest 1V Stat EKG-12 Lead Stat Measure peak expiratory flow STAT RT Consult Eval and Treat STAT 01/13/25 20:36 CT angio chest PE protocol Stat 01/13/25 20:42 Covid-19 + FLU A/B + RSV - PCR Stat Discontinued Medications Ipratropium [place] (Ipratropium 0.5 Mg/2.5 Ml Neb) 0.5 mg INH NOW ONE Stop: 01/13/25 21:52 Lorazepam (Lorazepam 0.5 Mg Tablet) 0.5 mg PO NOW ONE Stop: 01/13/25 21:30 Last Admin: 01/13/25 21:40 Dose: 0.5 mg Vital Signs Vital signs: Vital Signs - 8 hr 01/13/25 19:28 01/13/25 19:39 01/13/25 19:41 Temperature 97.6 F Pulse Rate 67 72 Respiratory Rate 24 Blood Pressure 145/78 H 165/79 H Pulse Oximetry 97 95 Oxygen Delivery Method Nasal Cannula Oxygen Flow Rate 5 01/13/25 19:41 01/13/25 20:00 01/13/25 20:00 Temperature Pulse Rate 69 65 Respiratory Rate 14 Blood Pressure 129/73 Pulse Oximetry 96 97 Oxygen Delivery Method Nasal Cannula Oxygen Flow Rate 2 01/13/25 20:30 01/13/25 20:30 01/13/25 21:00 Temperature Pulse Rate 64 Respiratory Rate 22 Blood Pressure 139/75 121/69 Pulse Oximetry 94 Oxygen Delivery Method Oxygen Flow Rate 01/13/25 21:00 Temperature Pulse Rate 64 Respiratory Rate 22 Blood Pressure Pulse Oximetry 94 Oxygen Delivery Method Oxygen Flow Rate MDM - SOB/Dyspnea Lab Data 01/13/25 19:47 01/13/25 19:47 Labs: Lab Results 01/13/25 01/13/25 Range/Units 19:47 20:42 WBC 7.8 (4.5-11.0) X10^3/uL RBC 4.05 L (4.5-5.9) X10^6/uL Hgb 13.3 L (13.5-17.5) g/dL Hct 38.3 L (41-53) % MCV 94.6 (80-100) fL MCH 32.9 (26-34) PG MCHC 34.8 (30-36) % RDW 14.7 (11.6-14.8) % Plt Count 205 (150-400) X10^3/uL Neut % (Auto) 72.7 (50-75) % Lymph % (Auto) 14.1 L (25-40) % [place] % (Auto) 8.1 (3-14) % Eos % (Auto) 4.2 H (2-4) % Baso % (Auto) 0.9 (0-2) % Neut # (Auto) 5600 (9327-1423) /uL Lymph # (Auto) 1100 (5545-4686) /uL [place] # (Auto) 600 (0-900) /uL Eos # (Auto) 300 (0-450) /uL Baso # (Auto) 100 (0-100) /uL PT 16.9 H (9.4-12.5) SECONDS INR 1.5 H (0.9-1.3) APTT 38 H (25.1-36.5) SECONDS Sodium 135 L (137-145) mmol/L Potassium 4.4 (3.4-5.1) mmol/L Chloride 102 (98-107) mmol/L Carbon Dioxide 25 (22-32) mmol/L BUN 15 (9-20) mg/dL Creatinine 0.79 (0.66-1.25) mg/dL Estimated GFR > 60 (>60) mL/min BUN/Creatinine Ratio 19.0 (6-22) Glucose 104 H (70-99) mg/dL Lactate 0.6 L (0.7-2.1) mmol/L Calcium 8.9 (8.4-10.2) mg/dL Magnesium 2.0 (1.6-2.3) mg/dL Total Bilirubin 0.7 (0.2-1.3) mg/dL AST 27 (17-59) IU/L ALT 13 (<50) IU/L Alkaline Phosphatase 48 (38-126) U/L Troponin I < 0.012 (0.01-0.034) ng/mL NT-Pro-B Natriuret Pep 228 (<450) pg/mL Total Protein 6.9 (6.3-8.2) g/dL Albumin 4.3 (3.5-5.0) g/dL Globulin 2.6 (1.7-4.1) g/dL Albumin/Globulin Ratio 1.7 (1.0-2.8) Lipase 148 (23-300) U/L SARS-CoV-2 (PCR) Negative (Negative) Influenza A (RT-PCR) Flu a negative (NEGATIVE) Influenza B (RT-PCR) Flu b negative (NEGATIVE) RSV (PCR) Negative (Negative) ECG Data Interpretation: EKG interpreted ED physician, atrial sense, ventricularly paced at 69, MDM Narrative Medical decision making narrative: Patient is a 79-year-old male with a past medical history of COPD chronically on 2 L nasal cannula, AFib on Eliquis, hypertension, hyperlipidemia with a pacemaker presents to the emergency department from home for evaluation of increased shortness of breath. He states that this is happening whenever he exerts himself, however he states that he feels like this might be due to his anxiety. He states that when this happens he is checking his pulse ox and it is in the mid to high 90s, however he states that he feels like he can not breathe, he states that he does increase his oxygen to 5 L for comfort states that when he is able to calm himself sit down he is able to go back to his baseline 2 L nasal cannula. He states that this has been having these issues previously discussed this with his maintenance mechanic technician who was at the MD but because it was not ?as severe they decided to just watch. He states that he is currently still in Cardiopulmonary Rehab. He currently at time of evaluation not complaining of any shortness of breath chest pain or any other symptoms at this time. Patient had lab work imaging EKG performed here in the emergency department. EKG without any ischemic change in, atrially sensed ventricularly paced. 2128: Patient re-evaluated after presenting from the CAT scan, patient pulse ox 98% on his baseline 2 L however he states that he feels the shortness of breath feels like he is anxious he states that he feels like he can not take a deep breath, I will provide him a very small dose of p.o. Ativan here to see if this can help with his anxiety. 2201: Patient was re-evaluated, states that he is feeling significantly better after administration of medication, patient states he is due for his breathing treatment therefore we will give him a dose of his breathing treatment here before discharge. His CT angio was without any acute findings, you believe his symptoms have a component of anxiety therefore will trial Atarax as needed at home. I also told him to follow up with his primary care and maintenance mechanic technician outpatient setting he verbalized understanding of this and agrees to being discharged home with outpatient follow up. Patient has remained at his baseline oxygen Discharge Plan Departure Patient Disposition: Home Clinical Impression: Dyspnea Activity Restrictions/Additional Instructions: Please follow up with the primary care doctor and your maintenance mechanic technician Please read the discharge instructions sheet carefully and bring all papers to all doctor follow-up visits, as it may contain information that your doctor may want to see. Disease processes change and evolve, if your symptoms worsen or if you develop any new symptoms that are concerning to you please return for evaluation. Your evaluation today does not show any evidence of any life-threatening/serious illnesses requiring admission to the hospital or surgery. Please follow-up with your doctor for re-evaluation in approximately 1 day. Seek immediate medical attention for any worrisome symptoms. *If you do not have a primary care provider please contact the [facility] Resource line at [phone]. They will ask some questions about your medical history and help get you set up with a doctor in the community. Prescriptions: New hydroxyzine HCl 25 mg tablet 25 mg PO BID PRN (Reason: anxiety) 7 Days Qty: 14 0RF No Action tamsulosin [Flomax] 0.4 MG capsule,extended release 24hr 0.4 mg PO QDAY Qty: 0 Spiriva Respimat 2.5 MCG/ACTUATION mist 2.5 mcg IH BID Qty: 0 Eliquis 5 MG tablet 5 mg PO BID Qty: 60 3RF levalbuterol tartrate [Xopenex HFA] 45 MCG/INH HFA aerosol inhaler 2 puff INH Q4HP Referrals: Annabella Barker ARNP [Primary Care Provider, Family Practice] Stand Alone Forms: Patient Portal/API
--- NOTE | 2025-01-13 20:33 | DI.RAD.S_ITS ---
PROCEDURE: XR CHEST 1V INDICATIONS: Shortness of breath TECHNIQUE: One view of the chest was acquired. COMPARISON: [facility], CR, XR CHEST 1V, 01/02/2025, 13:44. FINDINGS: Surgical changes and devices: Pacemaker. Lungs and pleura: Lungs are clear. No pleural effusions or pneumothorax. Mediastinum: Mediastinal contours appear normal. Heart size is minimally prominent. Bones and chest wall: No suspicious bony lesions. Overlying soft tissues appear unremarkable. IMPRESSION: No acute pulmonary process. Dictated by: Yu Pang M.D. on 01/13/2025 at 21:04 Approved by: Yu Pang M.D. on 01/13/2025 at 21:06
--- NOTE | 2025-01-13 20:36 | DI.CT.S_ITS ---
PROCEDURE: CT ANGIO CHEST PE PROTOCOL INDICATIONS: sob, currently in pulm rehab 2/2 COPD TECHNIQUE: After the administration of intravenous contrast, 2 mm thick sections acquired from the pulmonary apices to the posterior costophrenic angles. 3-dimensional maximum intensity projection (MIP) coronal and sagittal reformats were then acquired through the thorax. For radiation dose reduction, the following was used: automated exposure control, adjustment of mA and/or kV according to patient size. COMPARISON: CT, CT CHEST WITHOUT CONTRAST, 03/18/2017, 11:40. [facility], CR, XR CHEST 1V, 01/13/2025, 20:37. FINDINGS: Image quality: Diagnostic. Pulmonary arteries: Pulmonary arteries are normal in size, and demonstrate no intraluminal filling defects to suggest central pulmonary embolism. Lower Neck: No enlarged lymph nodes. Thyroid: Not well seen. Axillae: No enlarged lymph nodes. Chest Wall: Unremarkable. Bones: Unremarkable. Lungs and Pleura: No pneumothorax or pleural effusions. No consolidation or suspicious nodules. Prominent emphysematous changes. Heart: Heart size is normal. No pericardial effusion. Thoracic Vessels: No aortic aneurysm. Mediastinum and [place]: No enlarged lymph nodes. Esophagus: No wall thickening. No hiatal hernia. Upper Abdomen: Visualized upper abdomen solid organs and bowel loops appear normal. IMPRESSION: No pulmonary embolus. No acute cardiopulmonary process. Dictated by: Yu Pang M.D. on 01/13/2025 at 21:52 Approved by: Yu Pang M.D. on 01/13/2025 at 21:54
[2025-01-13 20:40] LABS: INR 1.5 (0.9-1.3); Prothrombin Time 16.9 SECONDS (9.4-12.5)
[2025-01-13 20:43] LABS: Lactate (Lactic Acid) 0.6 mmol/L (0.7-2.1)
[2025-01-13 20:44] LABS: Add Manual Diff / Slide Review NO; Alanine Aminotransferase 13 IU/L (<50); Albumin 4.3 g/dL (3.5-5.0); Albumin Globulin Ratio 1.7 (1.0-2.8); Alkaline Phosphatase 48 U/L (38-126); Blood Urea Nitrogen 15 mg/dL (9-20); Calcium 8.9 mg/dL (8.4-10.2); Carbon Dioxide 25 mmol/L (22-32); Chloride 102 mmol/L (98-107); Estimated Glomerular Filt Rate > 60 mL/min (>60); Globulin 2.6 g/dL (1.7-4.1); Glucose 104 mg/dL (70-99); HEMOLYSIS < 15 (0-50); Hematocrit 38.3 % (41-53); Hemoglobin 13.3 g/dL (13.5-17.5); Lymphocytes Absolute Auto 1100 /uL (1100-4500); Mean Corpuscular HGB Conc 34.8 % (30-36); Mean Corpuscular Hemoglobin 32.9 PG (26-34); Mean Corpuscular Volume 94.6 fL (80-100); Platelet Count 205 X10^3/uL (150-400); Potassium 4.4 mmol/L (3.4-5.1); Sodium 135 mmol/L (137-145); Total Protein 6.9 g/dL (6.3-8.2)
[2025-01-13 20:52] LABS: PTT Partial Thromboplastin Tim 38 SECONDS (25.1-36.5)
[2025-01-13 20:56] LABS: NT-proBNP (BNP-Adult 18+) 228 pg/mL (<450); Troponin I < 0.012 ng/mL (0.01-0.034)
[2025-01-13 20:57] LABS: Lipase 148 U/L (23-300)
[2025-01-13 20:58] LABS: Magnesium 2.0 mg/dL (1.6-2.3)
[2025-01-13 21:26] LABS: Influenza A - CEPHEID Flu A NEGATIVE (NEGATIVE); Influenza B - CEPHEID Flu B NEGATIVE (NEGATIVE)
[2025-01-13 21:42] LABS: COVID-19 CEPHEID 4-PLEX PCR Negative (Negative)
[2025-01-13] MEDS: IPRATROPIUM 0.5 MG/2.5 ML NEB INH ×2 (22:02→22:07)
--- NOTE | 2025-01-13 22:17 | RT ---
Patient with hx of COPD and Pulmonary Rehab, afib, pacer, does not take albuterol due to afib. Given 2 doses of atrovent with increased wheezing and coughing. Producing small clear secretion. Sat up to side of gurney,encouraged to continue with his pursecd lip breathing. MD at bedside to reexamine. Patient stating it feels like he can breath easier sitting up at side of gurney.
[2025-01-13] MEDS: MAGNESIUM SULFATE 2 GM/50 ML PIGGYBACK IV (22:21)
[2025-01-13] MEDS: methylPREDNISolone succ 125 MG/2 ML VIAL IV (22:21)
== END 2025-01-13 23:37 | disposition home or self-care (01) ==
PROVIDERS: Emergency Provider Student in an Organized Health Care Education/Training Program; PCP Registered Nurse
DX: R06.00 Dyspnea, unspecified (principal); F41.9 Anxiety disorder, unspecified; R07.9 Chest pain, unspecified; J44.9 Chronic obstructive pulmonary disease, unspecified; Z79.01 Long term (current) use of anticoagulants; Z95.0 Presence of cardiac pacemaker
CPT/HCPCS: 36415; 71045; 71275; 80053; 83605; 83690; 83735; 83880; 84484; 85025; 85610; 85730; 87637; 93005; 94640; 96365; 96375; 99285; J2919; J3475; Q9967

== ENCOUNTER 2025-01-21 12:30 | Outpatient (RCR) | payer OTHER, SELFPAY | END 2025-01-21 14:30 | LOC: PUL 12:30 | PROVIDERS: PCP Registered Nurse | DX: J44.9 Chronic obstructive pulmonary disease, unspecified (principal) | CPT/HCPCS: 94626 ==

== ENCOUNTER → 2025-04-19 09:05 | Outpatient (CLI) | payer OTHER, SELFPAY ==
[2025-04-19 09:54] LABS: Hematocrit 39.2 % (41-53); Hemoglobin 13.7 g/dL (13.5-17.5); Mean Corpuscular HGB Conc 34.9 % (30-36); Mean Corpuscular Hemoglobin 31.9 PG (26-34); Mean Corpuscular Volume 91.4 fL (80-100); Platelet Count 180 X10^3/uL (150-400)
[2025-04-19 10:16] LABS: Blood Urea Nitrogen 12 mg/dL (9-20); Calcium 9.1 mg/dL (8.4-10.2); Carbon Dioxide 29 mmol/L (22-32); Chloride 103 mmol/L (98-107); Cholesterol 144 mg/dL (140-199); Estimated Glomerular Filt Rate > 60 mL/min (>60); Glucose 98 mg/dL (70-99); HDL Cholesterol 71 mg/dL (40-60); HEMOLYSIS < 15 (0-50); Potassium 4.0 mmol/L (3.4-5.1); Sodium 137 mmol/L (137-145); Triglycerides 83 mg/dL (35-150)
== END ==
PROVIDERS: PCP Registered Nurse; Referring Provider Urology; Visit Provider Internal Medicine Cardiovascular Disease
DX: E78.5 Hyperlipidemia, unspecified (principal); I42.9 Cardiomyopathy, unspecified
CPT/HCPCS: 36415; 80048; 80061; 85027

== ENCOUNTER 2025-05-07 09:45 | Emergency (ER) | payer OTHER, SELFPAY ==
[2025-05-07] VITALS (9 sets, daily range): BP systolic 120–157; BP diastolic 65–84; PULSE 64–75; RESP 12–26; TEMP 36.4; O2SAT 92–97; BMI 27.1
--- NOTE | 2025-05-07 10:18 | DI.CT.S_ITS ---
PROCEDURE: CT HEAD/BRAIN WO CON INDICATIONS: fall on thinners TECHNIQUE: Noncontrast 4.5 mm thick angled axial sections acquired from the foramen magnum to the vertex, with coronal and sagittal reformats. For radiation dose reduction, the following was used: automated exposure control, adjustment of mA and/or kV according to patient size. COMPARISON: [facility], CT, CT HEAD/BRAIN WO CON, 04/05/2021, 12:33. FINDINGS: Image quality: Diagnostic CSF spaces: Basal cisterns are patent. Lateral ventricles are symmetric. Volume: Vascular calcifications. Periventricular white matter disease is commonly seen with chronic microangiopathy. Volume loss is present. These findings are moderate Brain: Subdural collection is seen at the right convex 80 measuring 6 mm, but without acute appearing blood products. No acute hemorrhage is present. No gross loss of reid-white differentiation. Craniofacial structures: Partially seen ethmoid air cell opacities. IMPRESSION: No acute intracranial hemorrhage. Right small subdural collection measures 6 mm in thickness without significant mass effect or acute appearing blood products. Dictated by: Donal Bradford M.D. on 05/07/2025 at 10:40 Approved by: Donal Bradford M.D. on 05/07/2025 at 10:42
--- NOTE | 2025-05-07 10:18 | DI.CT.S_ITS ---
PROCEDURE: CT CERVICAL SPINE WO CON INDICATIONS: fall on thinners TECHNIQUE: Noncontrast 3 mm thick sections acquired from the skull base to the T4 level. Sagittal and coronal reformats were then constructed. For radiation dose reduction, the following was used: automated exposure control, adjustment of mA and/or kV according to patient size. COMPARISON: None. FINDINGS: Image quality: Diagnostic Bones: Moderate cervical spondylosis. No acute displaced fracture. No dislocation. Multilevel disc space height loss, osteophytes and facet arthropathy, with disc space height loss worst at C5-C6. Soft tissues: No pathologic prevertebral swelling. 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 IMPRESSION: Moderate spondylosis. No acute displaced fracture or traumatic subluxation. If there is high concern for further derangement, consider MRI evaluation. 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 Dictated by: Donal Bradford M.D. on 05/07/2025 at 10:42 Approved by: Donal Bradford M.D. on 05/07/2025 at 10:45
--- NOTE | 2025-05-07 12:07 | ED.HEATRA ---
HPI - Head Injury General Chief complaint: Trauma Stated complaint: Headache, fall x5 day ago Time Seen by Provider: 05/07/25 11:37 Source: patient Mode of arrival: Family Vehicle History of Present Illness HPI Narrative: Patient is an 79-year-old male history of atrial fibrillation on Eliquis presents with ongoing headache. He reports that he fell 5 days ago. He was on a step ladder trying to get chocolate for his off a shelf when he fell backwards and hit his head. No loss of consciousness, no nausea or vomiting. He just had an ongoing headache. No numbness tingling or weakness. He has been able to provide appropriate history. He does have a history of COPD he is on chronic home O2. Related Data Home Medications ?Medication ?Instructions ?Recorded ?Confirmed tamsulosin 0.4 mg capsule (Flomax) 0.4 mg PO QDAY ##0 03/22/17 01/02/25 tiotropium bromide 2.5 2.5 mcg IH BID ##0 03/22/17 01/02/25 mcg/actuation mist for inhalation (Spiriva Respimat) levalbuterol tartrate 45 2 puff INH Q4HP 01/02/25 01/02/25 mcg/actuation aerosol inhaler (Xopenex HFA) Previous Rx's ?Medication ?Instructions ?Recorded apixaban 5 mg tablet (Eliquis) 5 mg PO BID #60 tabs 03/23/17 hydrocodone 5 mg-acetaminophen 325 1 tab PO Q6H PRN pain #10 tabs 05/07/25 mg tablet ondansetron 4 mg disintegrating 4 mg PO Q8H PRN nausea and 05/07/25 tablet vomiting #10 tabs Allergies Allergy/AdvReac Type Severity Reaction Status Date / Time No Known Allergies Allergy Verified 05/07/25 10:13 Patient History Medical History COPD (chronic obstructive pulmonary disease) Atrial fibrillation Social History Smoking Status: Former smoker Smoking Status: Former smoker tobacco type: cigarettes alcohol intake frequency: holidays/special occasions only Exam Initial Vital Signs Initial Vital Signs: Vital Signs Temperature 97.5 F L 05/07/25 10:13 Pulse Rate 73 05/07/25 10:13 Respiratory Rate 17 05/07/25 10:13 Blood Pressure 136/65 05/07/25 10:13 Pulse Oximetry 96 05/07/25 10:13 Oxygen Delivery Method Room Air 05/07/25 10:13 GENERAL: Alert very pleasant 79-year-old male and in no acute distress. HEENT: Head atraumatic,EOMI, pupils reactive, face symmetric, moist mucous membranes NECK: No vertebral tenderness no step-off CARDIOVASCULAR: Regular rate and rhythm without murmurs, rubs or gallops. RESPIRATORY: Breath sounds equal bilaterally, no wheezes rales or rhonchi. ABDOMEN: Soft, nontender. Normoactive bowel sounds all 4 quadrants. No guarding or rebound. EXTREMITIES: Normal range of motion, no clubbing or edema. Neurovascularly intact NEUROLOGICAL: Alert and oriented x4.Normal gait and speech. Cranial nerves II through XII grossly intact. Good [id number], good pava-[id number], strength equal bilaterally, no dysarthria or aphasia, sensation in tact to soft touch bilaterally, no visual changes, no facial droop SKIN: Warm, dry, no laceration, no petechiae, no rashes or lesions. Scores GCS Susanna coma scale eye opening: Spontaneous [place] coma scale verbal response: Orientated [place] coma scale motor response: Obey commands [place] coma scale total score: 15 NIH Stroke Scale Level of Conciousness: Alert, keenly responsive Ask month/age: Answers both questions correctly. Open/close eyes, close hand: Performs both tasks correctly Best gaze horizontal: Normal Visual perez: No visual loss Facial palsy: Normal symetrical movement Left arm drift: No drift for full 10 sec Right arm drift: No drift for full 10 sec Left leg drift: No drift for full 5 sec Right leg drift: No drift for full 5 sec Limb ataxia: Absent Sensory on face/arms/legs: Normal, no sensory loss Best language: No aphasia, normal Dysarthria: Normal Extinction or inattention: No abnormality Total NIH Stroke scale score: 0 Course Orders Ordered: ED Orders 05/07/25 10:18 CT cervical spine wo con Stat CT head/brain wo con Stat 05/07/25 12:00 CBC Auto Diff [Complete Blood Count AUTO DIFF] Stat CMP [Comprehensive Metabolic Panel] Stat Lactate (Lactic Acid) Stat PT [Prothrombin Time INR] Stat PTT Partial Thromboplastin Jak Stat Discontinued Medications Hydrocodone Bitart/Acetaminophen (Hydrocodone/Acet 5/325 Tablet) 1 tab PO NOW ONE Stop: 05/07/25 13:07 Last Admin: 05/07/25 13:14 Dose: 1 tab Documented By: RISA Vital Signs Vital signs: Vital Signs - 8 hr 05/07/25 10:13 05/07/25 11:52 05/07/25 11:53 Temperature 97.5 F L Pulse Rate 73 75 Respiratory Rate 17 17 Blood Pressure 136/65 157/82 H Pulse Oximetry 96 97 Oxygen Delivery Method Room Air 05/07/25 12:00 05/07/25 12:00 05/07/25 12:30 Temperature Pulse Rate 69 64 Respiratory Rate 20 12 Blood Pressure 150/84 H Pulse Oximetry 97 94 Oxygen Delivery Method 05/07/25 12:30 05/07/25 13:00 05/07/25 13:00 Temperature Pulse Rate 65 Respiratory Rate 14 Blood Pressure 133/67 120/69 Pulse Oximetry 92 Oxygen Delivery Method 05/07/25 13:38 05/07/25 14:00 05/07/25 14:06 Temperature Pulse Rate 68 65 Respiratory Rate 26 H 24 Blood Pressure 139/74 Pulse Oximetry 95 Oxygen Delivery Method 05/07/25 14:06 Temperature Pulse Rate 64 Respiratory Rate 23 Blood Pressure Pulse Oximetry 95 Oxygen Delivery Method MDM - Head Injury Lab Data 05/07/25 12:00 05/07/25 12:00 Labs: Lab Results 05/07/25 Range/Units 12:00 WBC 7.0 (4.5-11.0) X10^3/uL RBC 4.39 L (4.5-5.9) X10^6/uL Hgb 13.9 (13.5-17.5) g/dL Hct 40.4 L (41-53) % MCV 92.2 (80-100) fL MCH 31.8 (26-34) PG MCHC 34.4 (30-36) % RDW 14.0 (11.6-14.8) % Plt Count 221 (150-400) X10^3/uL Neut % (Auto) 73.3 (50-75) % Lymph % (Auto) 12.6 L (25-40) % Becker % (Auto) 8.9 (3-14) % Eos % (Auto) 4.4 H (2-4) % Baso % (Auto) 0.8 (0-2) % Neut # (Auto) 5100 (7526-2727) /uL Lymph # (Auto) 900 L (2268-1284) /uL Becker # (Auto) 600 (0-900) /uL Eos # (Auto) 300 (0-450) /uL Baso # (Auto) 100 (0-100) /uL PT 15.9 H (9.4-12.5) SECONDS INR 1.4 H (0.9-1.3) APTT 37 H (25.1-36.5) SECONDS Sodium 134 L (137-145) mmol/L Potassium 4.5 (3.4-5.1) mmol/L Chloride 103 (98-107) mmol/L Carbon Dioxide 24 (22-32) mmol/L BUN 11 (9-20) mg/dL Creatinine 0.75 (0.66-1.25) mg/dL Estimated GFR > 60 (>60) mL/min BUN/Creatinine Ratio 14.7 (6-22) Glucose 96 (70-99) mg/dL Lactate 1.2 (0.7-2.1) mmol/L Calcium 9.3 (8.4-10.2) mg/dL Total Bilirubin 0.5 (0.2-1.3) mg/dL AST 26 (17-59) IU/L ALT 14 (<50) IU/L Alkaline Phosphatase 48 (38-126) U/L Total Protein 7.2 (6.3-8.2) g/dL Albumin 4.4 (3.5-5.0) g/dL Globulin 2.8 (1.7-4.1) g/dL Albumin/Globulin Ratio 1.6 (1.0-2.8) Imaging Data CT scan - head: Radiologist's Impression: PROCEDURE: CT HEAD/BRAIN WO CON INDICATIONS: fall on thinners TECHNIQUE: Noncontrast 4.5 mm thick angled axial sections acquired from the foramen magnum to the vertex, with coronal and sagittal reformats. For radiation dose reduction, the following was used: automated exposure control, adjustment of mA and/or kV according to patient size. COMPARISON: [facility], CT, CT HEAD/BRAIN WO CON, 04/05/2021, 12:33. FINDINGS: Image quality: Diagnostic CSF spaces: Basal cisterns are patent. Lateral ventricles are symmetric. Volume: Vascular calcifications. Periventricular white matter disease is commonly seen with chronic microangiopathy. Volume loss is present. These findings are moderate Brain: Subdural collection is seen at the right convex 80 measuring 6 mm, but without acute appearing blood products. No acute hemorrhage is present. No gross loss of reid-white differentiation. Craniofacial structures: Partially seen ethmoid air cell opacities. IMPRESSION: No acute intracranial hemorrhage. Right small subdural collection measures 6 mm in thickness without significant mass effect or acute appearing blood products. Dictated by: Donal Bradford M.D. on 05/07/2025 at 10:40 CT - cervical spine: Radiologist's Impression: PROCEDURE: CT CERVICAL SPINE WO CON INDICATIONS: fall on thinners TECHNIQUE: Noncontrast 3 mm thick sections acquired from the skull base to the T4 level. Sagittal and coronal reformats were then constructed. For radiation dose reduction, the following was used: automated exposure control, adjustment of mA and/or kV according to patient size. COMPARISON: None. FINDINGS: Image quality: Diagnostic Bones: Moderate cervical spondylosis. No acute displaced fracture. No dislocation. Multilevel disc space height loss, osteophytes and facet arthropathy, with disc space height loss worst at C5-C6. Soft tissues: No pathologic prevertebral swelling. 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 IMPRESSION: Moderate spondylosis. No acute displaced fracture or traumatic subluxation. If there is high concern for further derangement, consider MRI evaluation. 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 Dictated by: Donal Bradford M.D. on 05/07/2025 at 10:[address] [facility] Narrative Medical decision making narrative: [facility] CC: Headache Complicating co-morbidities: Atrial fibrillation on Eliquis Data collected from: Patient and family members Medical records reviewed: Previous ED records reviewed Differential considered: Intracranial hemorrhage skull fracture headache Exam documented above, pertinent findings include: Alert well-appearing 79-year-old male no evidence of trauma neck is supple GCS is 15 NIH is 0 Lab Test results independently reviewed as above. Pertinent findings: CBC within normal limits no anemia CMP within normal limits no CHERELLE glucose 96 Imaging studies independently reviewed: Head CT subdural hematoma 6 mm without mass effect, no acute intracranial hemorrhage. Actually did call and speak with radiologist personally who did not think this was acute there are no acute blood products CT cervical spine moderate spondylolisthesis no displaced fracture Consultations: [id number] Dr. Garcia, neurosurgery at [facility] updated on patient's symptoms test results has reviewed head CT himself. Recommends discontinuing Eliquis follow-up with primary care. Treatments: [place] Re-evaluations: Patient remains awake alert oriented but continues to have headache given [place]. Discussion: Patient 79-year-old male on Eliquis presenting to day with headache after fall 5 days ago. Found to have subdural hematoma 6 mm without mass effect. Neurosurgery was consulted recommend holding Eliquis following up outpatient. Patient is neurovascularly intact blood work is overall reassuring. Discussion with patient and family at bedside strict return precautions. He is feeling better after [place] Discharge Plan Departure Patient Disposition: Home Clinical Impression: Acute subdural hematoma Instructions: DI for Subdural Hematoma Activity Restrictions/Additional Instructions: *You have been diagnosed with subdural hematoma *What to do: At this time he will continue to have slight headache and feels somewhat nauseated. You should not have a severe headache you should not be throwing up May need a repeat head CT in 1-2 weeks *Continue to take medications as directed STOP Eliquis [place] 1 tablet every 6 hours if needed for severe pain Zofran 4 mg every 8 hours if needed for nausea or vomit *Follow up with your primary care provider in 2-3 days or call [phone] Call your PCP today to schedule follow up appointment *Return to ER if you should have worsening headache vomiting confusion [or] any new, worsening or concerning symptoms CONTROLLED SUBSTANCE DISCHARGE (Narcotoic/benzodiazepine/Flexeril/Phenergan) 1. You have been prescribed narcotic medications, it does have acetaminophen/Tylenol/paracetamol in it, DO NOT TAKE MORE THAN 4,00mg in 24 hours of Tylenol. TRAMADOL DOES NOT CONTAIN TYLENOL 2. Please understand that we cannot provide further refills of narcotics, benzodiazepines or controlled substances through the ED and her pain management will need to be through your provider. 3. While on these medications you cannot drive or operate heavy machinery. 4. You cannot sign legal documents or perform any duties such as this. 5. As long as you're taking opiate pain medications he should also be taking a stool softener such as Colace, Dulcolax, MiraLAX or prune juice, to help avoid constipation. Prescriptions: New hydrocodone-acetaminophen 5-325 mg tablet 1 tab PO Q6H PRN (Reason: pain) Qty: 10 0RF ondansetron 4 mg tablet,disintegrating 4 mg PO Q8H PRN (Reason: nausea and vomiting) Qty: 10 0RF No Action tamsulosin [Flomax] 0.4 MG capsule,extended release 24hr 0.4 mg PO QDAY Qty: 0 Spiriva Respimat 2.5 MCG/ACTUATION mist 2.5 mcg IH BID Qty: 0 Eliquis 5 MG tablet 5 mg PO BID Qty: 60 3RF levalbuterol tartrate [Xopenex HFA] 45 MCG/INH HFA aerosol inhaler 2 puff INH Q4HP Referrals: Annabella Barker ARNP [Primary Care Provider, [facility]] Stand Alone Forms: Patient Portal/API
[2025-05-07 12:23] LABS: Add Manual Diff / Slide Review NO; Hematocrit 40.4 % (41-53); Hemoglobin 13.9 g/dL (13.5-17.5); Lymphocytes Absolute Auto 900 /uL (1100-4500); Mean Corpuscular HGB Conc 34.4 % (30-36); Mean Corpuscular Hemoglobin 31.8 PG (26-34); Mean Corpuscular Volume 92.2 fL (80-100); Platelet Count 221 X10^3/uL (150-400)
[2025-05-07 12:32] LABS: INR 1.4 (0.9-1.3); Prothrombin Time 15.9 SECONDS (9.4-12.5)
[2025-05-07 12:34] LABS: PTT Partial Thromboplastin Tim 37 SECONDS (25.1-36.5)
[2025-05-07 12:36] LABS: Alanine Aminotransferase 14 IU/L (<50); Albumin 4.4 g/dL (3.5-5.0); Albumin Globulin Ratio 1.6 (1.0-2.8); Alkaline Phosphatase 48 U/L (38-126); Blood Urea Nitrogen 11 mg/dL (9-20); Calcium 9.3 mg/dL (8.4-10.2); Carbon Dioxide 24 mmol/L (22-32); Chloride 103 mmol/L (98-107); Estimated Glomerular Filt Rate > 60 mL/min (>60); Globulin 2.8 g/dL (1.7-4.1); Glucose 96 mg/dL (70-99); HEMOLYSIS < 15 (0-50); Lactate (Lactic Acid) 1.2 mmol/L (0.7-2.1); Potassium 4.5 mmol/L (3.4-5.1); Sodium 134 mmol/L (137-145); Total Protein 7.2 g/dL (6.3-8.2)
== END 2025-05-07 14:22 | disposition home or self-care (01) ==
PROVIDERS: Emergency Provider Emergency Medicine; PCP Registered Nurse
DX: S06.5XAA Traumatic subdural hemorrhage with loss of consciousness status unknown, initial encounter (principal); W11.XXXA Fall on and from ladder, initial encounter
CPT/HCPCS: 70450; 72125; 80053; 83605; 85025; 85610; 85730; 99284